=== PATIENT | male | born 1960 | race Caucasian/White ===

== ENCOUNTER 2024-10-07 18:37 | Inpatient (IN) | payer OTHER ==
[~2024-10-07] VITALS: Ht 188 cm; Wt 129.3 kg
[2024-10-07 18:50] VITALS: BP 123/71; PULSE 94; RESP 24; O2SAT 92
[2024-10-07] MEDS: NOREPINEPHRINE 8 MG/250ML KIT 250 ML IV SCH (18:50)
[2024-10-07] MEDS: EPINEPHrine HCL 250 ML IV SCH (18:50)
--- NOTE | 2024-10-07 18:59 | ED.PDOC ---
CPR-HPI HPI Comments 42-year-old male brought to ER via EMS in cardiac arrest. Transferred here from [facility], patient was at the store where he collapse as seen in the cameras. Cyanotic on scene with agonal respirations, CPR started by EMS, patient was asystole, and recieved 3 rounds of epinephrine, 1 round of bicarb, in 1 round of calcium. Blood sugar was high. Patient was stabilized at [facility], but was advised to be transferred to this institution for further evaluation and management. Chief Complaint: CPR Time Seen by MD: 18:56 Reviewed Notes: Cleaning Team Member Notes Allergies: Coded Allergies: UNOBTAINABLE (Unverified , 10/07/24) Information Source: Emergency Med Personnel Mode of Arrival: EMS Timing: Hours Onset: Witnessed Available Hx: Unknown Inital rhythm: Asystole Treatment: CPR, Intubation, IV, Epinephrine Response: Sustained return of pulse Associated signs and symptoms: Unknown Past Medical History PAST MEDICAL HISTORY: Unobtainable Surgical History: Unobtainable Family History Family History: Unobtainable Social History Smoker: Unobtainable Alcohol: Unobtainable Drugs: Unobtainable Lives In: Unobtainable Unable to Obtain due to: Medical Urgency, Intubated Physical Exam General Appearance: Other (Patient intubated) Was a procedure done? Was a procedure done?: No Differential Dx CPR Differential Diagnosis: Cardiopulmonary arrest, Electrolyte disorder, Myocardial Infarction, Respiratory Failure X-Ray, Labs, Meds, VS Vital Signs Date Time Temp Pulse Resp B/P (MAP) Pulse Ox O2 Delivery O2 Flow Rate FiO2 10/07/24 20:15 97 25 117/73 (88) 95 10/07/24 20:00 131/79 10/07/24 20:00 98 24 131/79 (96) 95 10/07/24 19:50 131/79 10/07/24 19:50 132/78 10/07/24 19:45 97 24 132/78 (96) 95 10/07/24 19:30 97 23 135/76 (95) 95 10/07/24 19:30 99 22 95 Mechanical Ventilator+ 100 100 10/07/24 19:25 96 10/07/24 19:15 96 24 134/78 (96) 95 10/07/24 19:00 98.5 91 25 135/76 (95) 93 98.5 10/07/24 18:54 98.5 96 16 135/76 (95) 95 98.5 10/07/24 18:50 94 24 123/71 (88) 92 100 10/07/24 18:50 94 24 123/71 (88) 92 100 10/07/24 18:50 123/71 10/07/24 18:50 123/71 10/07/24 18:41 86 16 120/73 (89) 96 10/07/24 18:40 85 Lab Test 10/07/24 20:08 10/07/24 19:30 10/07/24 19:11 10/07/24 18:58 Range/Units Troponin I High Sensitivity Pending 1159 *H </=54 ng/L Urine Color Light-yellow Yellow Urine Clarity Clear Clear Urine pH 5.0 5.0-9.0 Urine Specific [place] 1.027 1.001-1.035 Urine Protein Trace H Negative Urine Ketones Negative Negative Urine Blood 3+ H Negative /uL Urine Nitrite Negative Negative Urine Bilirubin Negative Negative Urine Urobilinogen Normal Negative mg/dL Urine Leukocyte Esterase Negative Negative /uL Urine RBC 2 0 - 3 /hpf Urine Microscopic WBC 1 0-3 /HPF Urine Squamous Epithelial Cells Few <5 /hpf Urine Bacteria Few H None Seen /hpf Urine Mucus Few None Seen Urine Glucose 4+ H Normal mg/dL Urine Opiates Screen Pending Urine Fentanyl Screen Pending Urine Barbiturates Screen Pending Urine Phencyclidine Screen Pending Urine Amphetamines Screen Pending Urine Benzodiazepines Screen Pending Urine Cocaine Screen Pending Urine Cannabinoids Screen Pending White Blood Count 18.8 H 4.4-10.8 10^3/uL Red Blood Count 5.91 H 4.5-5.90 10^6/uL Hemoglobin 16.8 13.5-17.5 g/dL Hematocrit 54.6 H 41.0-53.0 % Mean Corpuscular Volume 92.2 80.0-100.0 fL Mean Corpuscular Hemoglobin 28.4 28.0-32.0 pg Mean Corpuscular Hemoglobin Concent 30.8 L 32.0-36.0 g/dL Red Cell Distribution Width 17.7 H 11.8-14.3 % Platelet Count 301 140-450 10^3/uL Mean Platelet Volume 8.0 6.9-10.8 fL Neutrophils (%) (Auto) 85.8 H 37.0-80.0 % Lymphocytes (%) (Auto) 3.7 L 10.0-50.0 % Monocytes (%) (Auto) 9.6 0.0-12.0 % Eosinophils (%) (Auto) 0.4 0.0-7.0 % Basophils (%) (Auto) 0.5 0.0-2.0 % Neutrophils # (Auto) 16.1 H 1.6-8.6 10 ^3/uL Lymphocytes # (Auto) 0.7 0.4-5.4 10 ^3/uL Monocytes # (Auto) 1.8 H 0-1.3 10 ^3/uL Eosinophils # (Auto) 0.1 0-0.8 10 ^3/uL Basophils # (Auto) 0.1 0-0.2 10 ^3/uL Nucleated Red Blood Cells 1.6 % Sodium Level 140 136-145 mmol/L Potassium Level 5.3 H 3.5-5.1 mmol/L Chloride Level 97 L 98-107 mmol/L Carbon Dioxide Level 27 20-31 mmol/L Anion Gap 16 H 5-15 Blood Urea Nitrogen 60 H 9-23 mg/dL Creatinine 2.04 H 0.700-1.30 mg/dL Glomerular Filtration Rate Calc 37 >90 mL/min BUN/Creatinine Ratio 29.4 H 10.0-20.0 Serum Glucose 849 *H 74-106 mg/dL Lactic Acid Level 7.0 *H 0.4-2.0 mmol/L Calcium Level 11.5 H 8.7-10.4 mg/dL Phosphorus Level 8.7 H 2.4-5.1 mg/dL Magnesium Level 2.4 1.6-2.6 mg/dL Total Bilirubin 0.4 0.2-1.0 mg/dL Aspartate Amino Transferase (AST) 598 H 13-40 U/L Alanine Aminotransferase (ALT) 447 H 7-40 U/L Alkaline Phosphatase 233 H 46-116 U/L B-Type Natriuretic Peptide 454.29 0-100 pg/mL Total Protein 6.4 5.7-8.2 g/dL Albumin 3.8 3.2-4.8 g/dL Lipase Pending POC Glucose > 600 *H 70-106 mg/dl Current Medications Medications (Trade) Dose Ordered Sig/Chuck Route Start Time Stop Time Status Last Admin Vasopressin 20 units/Sodium Chloride 100 ml @ 9 mls/hr Q11H7M IV 10/07/24 19:00 10/07/24 20:00 Norepinephrine Bitartrate 250 ml @ 3.75 mls/hr Q24H IV 10/07/24 19:00 10/07/24 18:50 Epinephrine HCl 250 ml @ 7.5 mls/hr Q24H IV 10/07/24 19:45 10/07/24 18:50 Time of 1ST Reevaluation: 18:57 Reevaluation 1ST: Unchanged Patient Education/Counseling: Pt Unresponsive Family Education/Counseling: No Family Present Critical Care Note Critical Care Time?: Yes (45 min-critical care time only) Critical care comment: Status post cardiac arrest Heart Score Heart Score: Heart Score Response (Comments) Value History Moderate Suspicious 1 EKG Repolarization Disturb 1 Age 45-64 1 Risk Factors >3 or Hx ASHD 2 Troponin Normal limit 0 Total 5 Stability Stability form required: No I personally scribed for KP ROSAS MD ([email or web address]) on 10/07/24 at 18:58. Electronically submitted by James Miranda ([email or web address]). I personally scribed for KP ROSAS MD ([email or web address]) on 10/07/24 at 20:29. Electronically submitted by James Miranda ([email or web address]). KP ROSAS MD October 07, 2024 18:58
--- NOTE | 2024-10-07 19:06 | ECG ---
[facility] Test Date: 2024-10-07 Test Time: 18:40:24 Pat Name: ALEXX RAMIREZ Department: ED Room: [address] [place] [address] Gender: M Loom Operator: ALEX : 1960 Requested By: AVIVA DE LA VEGA Order Number: [id number] Reading MD: Natan Obrien Measurements Intervals [place] Rate: 85 P: 76 [place]: 190 QRS: -58 QRSD: 111 T: 115 QT: 410 QTc: 488 Interpretive Statements Sinus rhythm Incomplete RBBB and LAFB Low voltage, precordial leads Consider RVH w/ secondary repol abnormality Abnormal T, consider ischemia, lateral leads ST elevation, consider inferior injury Baseline wander in lead(s) III Electronically Signed On 10-08-2024 9:22:26 PDT by Natan Obrien Please click the below link to view image of tracing.
[2024-10-07 19:30] VITALS: PULSE 99; RESP 22; O2SAT 95
[2024-10-07 19:48] LABS: Basophils # (auto) 0.1 10 ^3/uL (0-0.2); Neutrophils # (auto) 16.1 10 ^3/uL (1.6-8.6); Platelet Count (auto) 301 10^3/uL (140-450)
[2024-10-07 19:50] LABS: Basophils % (auto) 0.5 % (0.0-2.0); Eosinophils # (auto) 0.1 10 ^3/uL (0-0.8); Eosinophils % (auto) 0.4 % (0.0-7.0); Hematocrit 54.6 % (41.0-53.0); Hemoglobin 16.8 g/dL (13.5-17.5); Lymphocytes # (auto) 0.7 10 ^3/uL (0.4-5.4); Lymphocytes % (auto) 3.7 % (10.0-50.0); Mean Corpuscular Hemoglobin 28.4 pg (28.0-32.0); Mean Corpuscular Hgb Conc. 30.8 g/dL (32.0-36.0); Mean Corpuscular Volume 92.2 fL (80.0-100.0); Monocytes # (auto) 1.8 10 ^3/uL (0-1.3); Monocytes % (auto) 9.6 % (0.0-12.0); Neutrophils % (auto) 85.8 % (37.0-80.0); Nucleated Red Blood Cells % 1.6 %; Red Blood Cells 5.91 10^6/uL (4.5-5.90); Red Cell Distribution Width 17.7 % (11.8-14.3); White Blood Cell 18.8 10^3/uL (4.4-10.8)
[2024-10-07] MEDS: VASOPRESSIN 20 UNITS in SODIUM CHL 0.9% 99 ML IV SCH (20:00)
[2024-10-07] MEDS: VASOPRESSIN 20 UNIT/ML ONE (20:01)
[2024-10-07 20:05] LABS: Albumin 3.8 g/dL (3.2-4.8); Anion Gap 16 (5-15); BUN/Creatinine Ratio 29.4 (10.0-20.0); Bilirubin, Total 0.4 mg/dL (0.2-1.0); Carbon Dioxide 27 mmol/L (20-31); Magnesium 2.4 mg/dL (1.6-2.6); Sodium 140 mmol/L (136-145); Total Protein 6.4 g/dL (5.7-8.2)
[2024-10-07 20:14] LABS: Chloride 97 mmol/L (98-107); Potassium 5.3 mmol/L (3.5-5.1)
[2024-10-07 20:15] LABS: Alanine Aminotransferase 447 U/L (7-40); Alkaline Phosphatase 233 U/L (46-116); Aspartate Aminotransferase 598 U/L (13-40); Blood Urea Nitrogen 60 mg/dL (9-23); Calcium 11.5 mg/dL (8.7-10.4); Phosphorus 8.7 mg/dL (2.4-5.1)
[2024-10-07 20:17] LABS: Glucose 849 mg/dL (74-106)
[2024-10-07 20:20] LABS: Urine Bacteria FEW /hpf (None Seen); Urine Blood 3+ /uL (Negative); Urine Clarity Clear (Clear); Urine Color Light-Yellow (Yellow); Urine Mucus FEW (None Seen); Urine Protein, UAD TRACE (Negative); Urine Specific Gravity 1.027 (1.001-1.035); Urine Squamous Epithelial Cell FEW /hpf (<5); Urine Urobilinogen Normal (Negative); Urine WBC 1 /HPF (0-3)
[2024-10-07 20:22] VITALS: BP 135/78; PULSE 95; RESP 24; O2SAT 95
[2024-10-07] MEDS: HEPARIN SODIUM (PORCINE) 5000 UNITS/ML 1ML VIAL IV ONE ×2 (20:30→21:24)
[2024-10-07] MEDS: SODIUM CHLORIDE 0.9% 1,000 ML IV ONE (20:34)
[2024-10-07 20:35] LABS: Lipase 38 U/L (12-53)
[2024-10-07 20:36] LABS: Amphetamine Screen, Urine Neg (NEGATIVE); Barbiturate Scree,Urine Neg (NEGATIVE); Benzodiazephine Screen, Urine Neg (NEGATIVE); Cannabinoid Screen, Urine Pos (NEGATIVE); Cocaine Screen, Urine Neg (NEGATIVE); Opiate Scree,Urine Neg (NEGATIVE); Phencyclidine Screen, Urine Neg (NEGATIVE)
--- NOTE | 2024-10-07 20:37 | ED.PDOC ---
CPR-HPI HPI Comments 42-year-old male brought to ER via EMS in cardiac arrest. Transferred here from [facility], patient was at the store where he collapse as seen in the cameras. Cyanotic on scene with agonal respirations, CPR started by EMS, patient was asystole, and recieved 3 rounds of epinephrine, 1 round of bicarb, in 1 round of calcium. Blood sugar was high. Patient was stabilized at [facility], but was advised to be transferred to this institution for further evaluation and management. Chief Complaint: CPR Time Seen by MD: 18:56 Reviewed Notes: Manager Business Banking Notes Allergies: Coded Allergies: UNOBTAINABLE (Unverified , 10/07/24) Information Source: Emergency Med Personnel Mode of Arrival: EMS Timing: Hours Inital rhythm: Asystole Treatment: CPR, Intubation, IV, Epinephrine Response: Sustained return of pulse Past Medical History PAST MEDICAL HISTORY: Unobtainable Surgical History: Unobtainable Family History Family History: Unobtainable Social History Smoker: Unobtainable Alcohol: Unobtainable Drugs: Unobtainable Lives In: Unobtainable Unable to Obtain due to: Medical Urgency, Intubated Physical Exam General Appearance: Severe Distress, Other (Patient intubated, status post cardiac arrest) HEENT: Normal ENT Inspection, Pharynx Normal, TMs Normal Neck: Full Range of Motion, Non-Tender, Normal, Normal Inspection Respiratory: Chest Non-Tender, Lungs Clear, No Accessory Muscle Use, No Respiratory Distress, Normal Breath Sounds Cardiovascular: No Edema, No JVD, No Murmur, No Gallop, Normal Peripheral Pulses, Regular Rate/Rhythm Breast Exam: Deferred Gastrointestinal: No Organomegaly, Non Tender, No Pulsatile Mass, Normal Bowel Sounds, Soft Genitalia: Deferred Pelvic: Deferred Rectal: Deferred Extremities: No calf tenderness, Normal capillary refill, Normal inspection, Normal range of motion, Non-tender, No pedal edema Musculoskeletal : Apperance: Normal Neurologic: Alert, aircraft general repair mechanic II-XII nml as Tested, No Motor Deficits, Normal Affect, Normal Mood, No Sensory Deficits Cerebellar Function: Normal Reflexes: Normal Skin: Dry, Normal Color, Warm Lymphatic: No Adenopathy Was a procedure done? Was a procedure done?: Yes Sedation Sedation?: No Central Line Recorder of insertion practice: Broom Stitcher Occupation of brazer resistance: Attending Physician Indication: Hypotension Room prepared for procedure: Yes Broom Stitcher performed hand hygien: Yes Maximal sterile barrier precau: Mask/Eye shield, Sterile gown, Cap, Sterlie gloves, Large sterlie drape Skin Preparation: Chlorhexidine gluconate Skin preparation completely dr: Yes Insertion site: Right, Femoral Central line catheter type: Xra-[id number] dialysis Number of lumens: 3 Central line exchanged over a: Yes Antiseptic ointment applied to: Yes Post Assessment: Proper placement Informed consent obtained: No Risks/benefits/alt described: No Other Procedure Procedure Right femoral arterial line insertion Indication Hypotension multiple vasopressors Anesthetic Lidocaine Prep Chlorhexadine Success Yes Informed consent obtained: No Risks, benefits, and alternati: No Differential Dx CPR Differential Diagnosis: Cardiopulmonary arrest, Electrolyte disorder, Myocardial Infarction, Respiratory Failure, Other (Diabetic ketoacidosis) X-Ray, Labs, Meds, VS Vital Signs Date Time Temp Pulse Resp B/P (MAP) Pulse Ox O2 Delivery O2 Flow Rate FiO2 10/08/24 01:00 101.1 95 24 138/81 (100) 93 101.1 10/08/24 01:00 138/81 10/08/24 00:58 138/77 10/08/24 00:50 137/78 10/08/24 00:45 100.9 93 24 137/78 (97) 92 100.9 10/08/24 00:33 101.1 10/08/24 00:30 100.8 92 24 132/74 (93) 92 100.8 10/08/24 00:23 100.6 89 24 131/73 94 90 100.6 10/08/24 00:16 89 24 131/73 (92) 94 90 10/08/24 00:15 100.6 89 24 131/73 (92) 94 100.6 10/08/24 00:00 100.6 90 24 128/73 (91) 94 100.6 10/08/24 00:00 127/81 10/07/24 23:50 129/79 10/07/24 23:50 129/79 10/07/24 23:45 100.6 91 19 127/74 (91) 94 100.6 10/07/24 23:33 100.4 10/07/24 23:30 100.6 90 25 127/74 (91) 98 100.6 10/07/24 23:15 100.4 90 24 121/70 (87) 98 100.4 10/07/24 23:11 89 24 126/64 (84) 98 90 10/07/24 23:00 137/72 10/07/24 23:00 100.2 88 24 126/64 (84) 99 100.2 10/07/24 22:50 131/72 10/07/24 22:50 131/72 10/07/24 22:45 100.2 88 24 131/72 (91) 99 100.2 10/07/24 22:30 87 24 129/77 (94) 98 10/07/24 22:28 129/77 10/07/24 22:15 89 24 123/74 (90) 98 10/07/24 22:00 90 24 126/77 (93) 98 10/07/24 22:00 126/77 10/07/24 21:50 127/76 10/07/24 21:50 127/76 10/07/24 21:45 92 24 127/76 (93) 96 10/07/24 21:38 98 24 124/77 (93) 95 100 10/07/24 21:35 95 24 135/78 (97) 95 100 10/07/24 21:30 92 24 130/72 (91) 97 10/07/24 21:29 93 10/07/24 21:28 117/74 10/07/24 21:15 96 21 117/74 (88) 96 10/07/24 21:01 98 24 124/77 (93) 95 100 10/07/24 21:00 99 25 124/77 (93) 95 10/07/24 21:00 124/77 10/07/24 20:50 143/77 10/07/24 20:50 143/77 10/07/24 20:45 94 26 143/77 (99) 96 10/07/24 20:30 95 24 135/78 (97) 95 10/07/24 20:22 95 24 135/78 (97) 95 100 10/07/24 20:15 97 25 117/73 (88) 95 10/07/24 20:00 131/79 10/07/24 20:00 98 24 131/79 (96) 95 10/07/24 19:50 131/79 10/07/24 19:50 132/78 10/07/24 19:45 97 24 132/78 (96) 95 10/07/24 19:30 97 23 135/76 (95) 95 10/07/24 19:30 99 22 95 Mechanical Ventilator+ 100 100 10/07/24 19:25 96 10/07/24 19:15 96 24 134/78 (96) 95 10/07/24 19:00 98.5 91 25 135/76 (95) 93 98.5 10/07/24 18:54 98.5 96 16 135/76 (95) 95 98.5 10/07/24 18:50 94 24 123/71 (88) 92 100 10/07/24 18:50 94 24 123/71 (88) 92 100 10/07/24 18:50 123/71 10/07/24 18:50 123/71 10/07/24 18:41 86 16 120/73 (89) 96 10/07/24 18:40 85 Lab Test 10/07/24 23:20 10/07/24 23:06 10/07/24 23:05 10/07/24 22:54 Range/Units White Blood Count 22.3 H 4.4-10.8 10^3/uL Red Blood Count 6.07 H 4.5-5.90 10^6/uL Hemoglobin 17.2 13.5-17.5 g/dL Hematocrit 54.2 H 41.0-53.0 % Mean Corpuscular Volume 89.4 80.0-100.0 fL Mean Corpuscular Hemoglobin 28.4 28.0-32.0 pg Mean Corpuscular Hemoglobin Concent 31.7 L 32.0-36.0 g/dL Red Cell Distribution Width 17.4 H 11.8-14.3 % Platelet Count 281 140-450 10^3/uL Mean Platelet Volume 7.8 6.9-10.8 fL Neutrophils (%) (Auto) 89.1 H 37.0-80.0 % Lymphocytes (%) (Auto) 3.1 L 10.0-50.0 % Monocytes (%) (Auto) 7.4 0.0-12.0 % Eosinophils (%) (Auto) 0.1 0.0-7.0 % Basophils (%) (Auto) 0.3 0.0-2.0 % Neutrophils # (Auto) 19.9 H 1.6-8.6 10 ^3/uL Lymphocytes # (Auto) 0.7 0.4-5.4 10 ^3/uL Monocytes # (Auto) 1.7 H 0-1.3 10 ^3/uL Eosinophils # (Auto) 0 0-0.8 10 ^3/uL Basophils # (Auto) 0.1 0-0.2 10 ^3/uL Nucleated Red Blood Cells 1.3 % Sodium Level 141 136-145 mmol/L Potassium Level 5.3 H 3.5-5.1 mmol/L Chloride Level 103 98-107 mmol/L Carbon Dioxide Level 29 20-31 mmol/L Anion Gap 9 5-15 Blood Urea Nitrogen 57 H 9-23 mg/dL Creatinine 1.67 H 0.700-1.30 mg/dL Glomerular Filtration Rate Calc 47 >90 mL/min BUN/Creatinine Ratio 34.1 H 10.0-20.0 Serum Glucose 735 #*H 74-106 mg/dL Serum Osmolality 360 H 278-298 mOsm/kg Lactic Acid Level 4.4 *H 0.4-2.0 mmol/L Calcium Level 10.8 H 8.7-10.4 mg/dL Phosphorus Level 6.0 H 2.4-5.1 mg/dL Magnesium Level 2.4 1.6-2.6 mg/dL Total Bilirubin 0.4 0.2-1.0 mg/dL Aspartate Amino Transferase (AST) 585 H 13-40 U/L Alanine Aminotransferase (ALT) 443 H 7-40 U/L Alkaline Phosphatase 188 H 46-116 U/L Total Protein 6.2 5.7-8.2 g/dL Albumin 3.7 3.2-4.8 g/dL Lipase 26 12-53 U/L Thyroid Stimulating Hormone (TSH) 0.80 0.55-4.78 uIU/mL POC Glucose > 600 *H > 600 *H 70-106 mg/dl Blood Gas Specimen Type Arterial Blood Gas Sample Site Right radial Blood Gas Patient Temperature 37.0 Arterial Blood Date Drawn [id number] Arterial Blood pH 7.302 L 7.350-7.450 Arterial Blood Partial Pressure CO2 54.5 H 35.0-48.0 mmHg Arterial Blood Partial Pressure O2 87.6 83.0-108.0 mmHg Arterial Blood HCO3 26.3 21.0-28.0 mmol/L Arterial Blood Oxygen Saturation 94.9 94.0-98.0 % Arterial Blood Base Excess -1.3 -2.0-3.0 mmol/L Arterial Blood Oxyhemoglobin 93.5 L 94.0-98.0 % Arterial Blood Carboxyhemoglobin 0.7 0.5-1.5 % Arterial Blood Methemoglobin 0.8 0.0-1.5 % Kp Test Modified Blood Gas Total Hemoglobin 17.40 13.5-17.5 g/dL Blood Gas Set Respiration Rate 24.0 Blood Gas Modality Vent - p/c FiO2 % 100.0 Blood Gas PEEP or CPAP 8.0 Blood Gas Comments Test 10/07/24 21:02 10/07/24 20:30 10/07/24 20:08 10/07/24 19:30 Range/Units Lactic Acid Level 5.0 *H 0.4-2.0 mmol/L Troponin I High Sensitivity 1714 *H 1569 *H </=54 ng/L Blood Gas Specimen Type Arterial Blood Gas Sample Site Right radial Blood Gas Patient Temperature 37.0 Arterial Blood Date Drawn Arterial Blood pH 7.183 *L 7.350-7.450 Arterial Blood Partial Pressure CO2 78.0 *H 35.0-48.0 mmHg Arterial Blood Partial Pressure O2 94.0 83.0-108.0 mmHg Arterial Blood HCO3 28.7 H 21.0-28.0 mmol/L Arterial Blood Oxygen Saturation 94.4 94.0-98.0 % Arterial Blood Base Excess -2.4 L -2.0-3.0 mmol/L Arterial Blood Oxyhemoglobin 92.5 L 94.0-98.0 % Arterial Blood Carboxyhemoglobin 1.2 0.5-1.5 % Arterial Blood Methemoglobin 0.8 0.0-1.5 % Kp Test Modified Blood Gas Total Hemoglobin 17.50 13.5-17.5 g/dL Blood Gas Set Respiration Rate 24.0 Blood Gas Modality Vent - p/c FiO2 % 100.0 Blood Gas PEEP or CPAP 8.0 Blood Gas Comments Blood Gas Critical Value Read Back Yes Blood Gas Notified Whom Laura dia md Blood Gas Notified Time [id number] Blood Gas Notified By Gennaro yanes rrt Urine Color Light-yellow Yellow Urine Clarity Clear Clear Urine pH 5.0 5.0-9.0 Urine Specific [place] 1.027 1.001-1.035 Urine Protein Trace H Negative Urine Ketones Negative Negative Urine Blood 3+ H Negative /uL Urine Nitrite Negative Negative Urine Bilirubin Negative Negative Urine Urobilinogen Normal Negative mg/dL Urine Leukocyte Esterase Negative Negative /uL Urine RBC 2 0 - 3 /hpf Urine Microscopic WBC 1 0-3 /HPF Urine Squamous Epithelial Cells Few <5 /hpf Urine Bacteria Few H None Seen /hpf Urine Mucus Few None Seen Urine Glucose 4+ H Normal mg/dL Urine Opiates Screen Neg NEGATIVE Urine Fentanyl Screen Neg NEGATIVE Urine Barbiturates Screen Neg NEGATIVE Urine Phencyclidine Screen Neg NEGATIVE Urine Amphetamines Screen Neg NEGATIVE Urine Benzodiazepines Screen Neg NEGATIVE Urine Cocaine Screen Neg NEGATIVE Urine Cannabinoids Screen Pos NEGATIVE Test 10/07/24 19:11 10/07/24 18:58 Range/Units White Blood Count 18.8 H 4.4-10.8 10^3/uL Red Blood Count 5.91 H 4.5-5.90 10^6/uL Hemoglobin 16.8 13.5-17.5 g/dL Hematocrit 54.6 H 41.0-53.0 % Mean Corpuscular Volume 92.2 80.0-100.0 fL Mean Corpuscular Hemoglobin 28.4 28.0-32.0 pg Mean Corpuscular Hemoglobin Concent 30.8 L 32.0-36.0 g/dL Red Cell Distribution Width 17.7 H 11.8-14.3 % Platelet Count 301 140-450 10^3/uL Mean Platelet Volume 8.0 6.9-10.8 fL Neutrophils (%) (Auto) 85.8 H 37.0-80.0 % Lymphocytes (%) (Auto) 3.7 L 10.0-50.0 % Monocytes (%) (Auto) 9.6 0.0-12.0 % Eosinophils (%) (Auto) 0.4 0.0-7.0 % Basophils (%) (Auto) 0.5 0.0-2.0 % Neutrophils # (Auto) 16.1 H 1.6-8.6 10 ^3/uL Lymphocytes # (Auto) 0.7 0.4-5.4 10 ^3/uL Monocytes # (Auto) 1.8 H 0-1.3 10 ^3/uL Eosinophils # (Auto) 0.1 0-0.8 10 ^3/uL Basophils # (Auto) 0.1 0-0.2 10 ^3/uL Nucleated Red Blood Cells 1.6 % Prothrombin Time 11.9 H 9.3-11.8 sec Prothrombin Time INR 1.14 0.9-1.15 Activated Partial Thromboplast Time 26.0 24.5-34.5 SEC Sodium Level 140 136-145 mmol/L Potassium Level 5.3 H 3.5-5.1 mmol/L Chloride Level 97 L 98-107 mmol/L Carbon Dioxide Level 27 20-31 mmol/L Anion Gap 16 H 5-15 Blood Urea Nitrogen 60 H 9-23 mg/dL Creatinine 2.04 H 0.700-1.30 mg/dL Glomerular Filtration Rate Calc 37 >90 mL/min BUN/Creatinine Ratio 29.4 H 10.0-20.0 Serum Glucose 849 *H 74-106 mg/dL Lactic Acid Level 7.0 *H 0.4-2.0 mmol/L Calcium Level 11.5 H 8.7-10.4 mg/dL Phosphorus Level 8.7 H 2.4-5.1 mg/dL Magnesium Level 2.4 1.6-2.6 mg/dL Total Bilirubin 0.4 0.2-1.0 mg/dL Aspartate Amino Transferase (AST) 598 H 13-40 U/L Alanine Aminotransferase (ALT) 447 H 7-40 U/L Alkaline Phosphatase 233 H 46-116 U/L Troponin I High Sensitivity 1159 *H </=54 ng/L B-Type Natriuretic Peptide 454.29 0-100 pg/mL Total Protein 6.4 5.7-8.2 g/dL Albumin 3.8 3.2-4.8 g/dL Lipase 38 12-53 U/L POC Glucose > 600 *H 70-106 mg/dl Current Medications Medications (Trade) Dose Ordered Sig/Chuck Route Start Time Stop Time Status Last Admin Vasopressin 20 units/Sodium Chloride 100 ml @ 9 mls/hr Q11H7M IV 10/07/24 19:00 10/07/24 20:00 Norepinephrine Bitartrate 250 ml @ 3.75 mls/hr Q24H IV 10/07/24 19:00 10/07/24 18:50 Epinephrine HCl 250 ml @ 7.5 mls/hr Q24H IV 10/07/24 19:45 10/07/24 18:50 Sodium Chloride 1,000 ml @ 1,000 mls/hr Q1H ONCE IV 10/07/24 20:30 10/07/24 21:29 DC 10/07/24 20:34 Insulin Human Regular (InsuLIN R) 10 units ONCE ONCE IV 10/07/24 20:30 10/07/24 20:32 DC 10/07/24 20:38 Heparin Sodium/ Dextrose 250 ml @ 10 mls/hr Q24H IV 10/07/24 20:30 10/07/24 21:20 Midazolam HCl 50 ml @ 1 mls/hr Q24H IV 10/07/24 21:00 10/07/24 21:28 Heparin Sodium (Porcine) 4,000 units ONCE ONCE IV 10/07/24 21:30 10/07/24 21:31 DC 10/07/24 21:24 Insulin Human (Reg)/Sodium Chloride 100 ml @ 0.5 mls/hr Q24H IV 10/07/24 23:00 10/08/24 01:09 Diagnostic Test (Pha) (Accu-Chek Comfort Curve T) 1 strip Q90MIN 10/08/24 00:00 10/08/24 01:00 Insulin Glargine (Lantus) 15 units ONCE ONCE SC 10/07/24 23:00 10/07/24 23:07 DC 10/07/24 23:19 Pantoprazole Sodium (Protonix) 40 mg ONCE ONCE IV 10/07/24 23:00 10/07/24 23:07 DC 10/07/24 23:22 Sodium Chloride 1,000 ml @ 150 mls/hr Q6H40M IV 10/07/24 23:00 10/08/24 01:53 Sodium Chloride 1,000 ml @ 1,000 mls/hr Q1H ONCE IV 10/07/24 23:00 10/07/24 23:59 DC 10/08/24 01:10 Aspirin 325 mg ONCE ONCE PO 10/07/24 23:00 10/07/24 23:07 DC 10/07/24 23:16 Acetaminophen (Tylenol Tablet) 650 mg ONCE ONCE PO 10/07/24 23:30 10/07/24 23:32 DC 10/07/24 23:33 Time of 1ST Reevaluation: 18:57 Reevaluation 1ST: Unchanged Patient Education/Counseling: Pt Unresponsive Family Education/Counseling: No Family Present Departure 1 Departure Time of Disposition: 02:16 (Patient presented as post [place] from outside hospital. Patient had a central line placed an arterial line placed. Patient had multiple pressors. We will admit patient for further workup.) Impression: Primary Impression: Cardiac arrest Additional Impressions: Acute respiratory failure Qualified Codes: J96.01 - Acute respiratory failure with hypoxia Uncontrolled diabetes mellitus Qualified Codes: E11.65 - Type 2 diabetes mellitus with hyperglycemia Disposition: ADMITTED INPATIENT Admit to: ICU Condition: Critical Critical Care Note Critical Care Time?: Yes (45 min-critical care time only) Critical care comment: Status post cardiac arrest Authorized and Performed by: Aviva Dia MD Total critical care time: Approximately 138 minutes Due to a high probability of clinically significant, life threatening deterioration, the patient required my highest level of preparedness to intervene emergently and I personally spent this critical care time directly and personally managing the patient. This critical care time included obtaining a history; examining the patient; pulse oximetry; ordering and review of studies; arranging urgent treatment with development of a management plan; evaluation of patient's response to treatment; frequent reassessment; and, discussions with other providers. This critical care time was performed to assess and manage the high probability of imminent, life-threatening deterioration that could result in multi-organ failure. It was exclusive of separately billable procedures and treating other patients and teaching time. Please see my other sections and the rest of the note for further information on patient assessment and treatment. Heart Score Heart Score: Heart Score Response (Comments) Value History Moderate Suspicious [address]-Deviation 2 Age 45-64 1 Risk Factors >3 or Hx ASHD 2 Troponin >3 x's Normal limit 2 Total 8 Stability Stability form required: No I personally scribed for AVIVA DIA MD ([email or web address]) on 10/07/24 at 20:37. Electronically submitted by James Miranda ([facility]). AVIVA DIA MD October 07, 2024 20:37
[2024-10-07] MEDS: InsuLIN REG 1unit/0.01ml Soln (100units/ml) IV ONE (20:38)
--- NOTE | 2024-10-07 20:48 | DVH ---
CHEST RADIOGRAPH Indication: s/p cardiac arrest Technique: Single frontal view of the chest was obtained Comparison: None FINDINGS: Lines and Tubes: Endotracheal tube in place 6.1 cm above the bhanu Lungs: Increased density throughout the right chest may represent infiltrate or atelectasis. Pleura: No effusion. No pneumothorax. Cardiomediastinal contours: Unremarkable Bones: No acute osseous abnormality. IMPRESSION: 1. Endotracheal tube 6.1 cm above the bhanu. 2. Enteric tube is believed to be in place but the distal aspect of this tube is not well seen. If o f clinical concern recommend abdominal study.
[2024-10-07 20:54] LABS: Base Excess -2.4 mmol/L (-2.0-3.0)
[2024-10-07 21:01] VITALS: BP 124/77; PULSE 98; RESP 24; O2SAT 95
[2024-10-07 21:09] LABS: INR 1.14 (0.9-1.15); Prothrombin Time 11.9 sec (9.3-11.8)
[2024-10-07] MEDS: HEPARIN DRIP/D5W 100UNITS/ML 250 ML IV SCH (21:20)
[2024-10-07] MEDS: MIDAZOLAM DRIP 50 mg/50mL 50 ML IV SCH (21:28)
[2024-10-07] MEDS ORDERED: DEXTROSE (50%) 50ML SYRG IV PRN (23:00)
--- NOTE | 2024-10-07 23:08 | DVHHPRES ---
History of Present Illness Resident Creating Document: LILLY CHIU RESIDENT History of Present Illness Hill Martinez is a proximally is 62-year-old male patient who was brought to the ER via EMS due to cardiac arrest, transferred from [facility] to [facility]. Due to clinical status, obtain information from EMR. Patient was at a store where he collapse is seen by the cannabis, he was cyanotic on scene and agonal respiration, CPR was started by EMS, patient connected to quality assurance monitor chassis which showed asystole, presented hyperglycemia (point of care glucose showed high values), received ACLS maneuvers (three rounds of epinephrine, one round of bicarbonate, one round of calcium). When patient arrived to ED he was already with ROSC. Could not obtain review of systems due to clinical status. Past medical history: Unobtainable Surgical history: Unobtainable Family history: Unobtainable Social history: Brought from [place]. Unknown living situation. Tobacco, alcohol and other drug abuse history unobtainable Allergies: Unobtainable Home medication: Unobtainable Patient seen and examined at bedside. Currently patient is on mechanical assisted ventilation, no sedation, on vasopressors. Place central venous and arterial line on right femoral area. Past Medical History Per HPI Past Surgical History Per HPI Family History Per HPI Past Social History Per HPI Review of Systems Review of Systems Per HPI Allergies: Coded Allergies: UNOBTAINABLE (Unverified , 10/07/24) Medications Current Medications Medications Dose Ordered Sig/Chuck Route Start Time Stop Time Status Last Admin Dose Admin Vasopressin 20 units/Sodium Chloride 100 ml @ 9 mls/hr Q11H7M IV 10/07/24 19:00 10/07/24 20:00 9 MLS/HR Norepinephrine Bitartrate 250 ml @ 3.75 mls/hr Q24H IV 10/07/24 19:00 10/07/24 18:50 26.25 MLS/HR Epinephrine HCl 250 ml @ 7.5 mls/hr Q24H IV 10/07/24 19:45 10/07/24 18:50 37.5 MLS/HR Heparin Sodium/ Dextrose 250 ml @ 10 mls/hr Q24H IV 10/07/24 20:30 10/07/24 21:20 10 MLS/HR Midazolam HCl 50 ml @ 1 mls/hr Q24H IV 10/07/24 21:00 10/07/24 21:28 1 MLS/HR Insulin Human (Reg)/Sodium Chloride 100 ml @ 0.5 mls/hr Q24H IV 10/07/24 23:00 Diagnostic Test (Pha) 1 strip Q90MIN 10/08/24 00:00 Dextrose 50 ml PRN PRN IV 10/07/24 23:00 Insulin Glargine 15 units DAILY SC 10/08/24 10:00 Pantoprazole Sodium 40 mg BID IV 10/08/24 10:00 Sodium Chloride 1,000 ml @ 150 mls/hr Q6H40M IV 10/07/24 23:00 Aspirin 81 mg DAILY PO 10/08/24 10:00 UNV Exam Vital Signs Vital Signs Date Time Temp Pulse Resp B/P (MAP) Pulse Ox O2 Delivery O2 Flow Rate FiO2 10/07/24 22:50 131/72 10/07/24 22:00 90 24 98 10/07/24 21:38 100 10/07/24 19:30 Mechanical Ventilator+ 10/07/24 19:00 98.5 98.5 Exam Patient lying in bed, under sedoanalgesia due to mechanical ventilation General: RASS -5, afebrile, mucosae are moist Cardiovascular: Normal S1 and S2. No murmurs, gallops or rubs Respiratory: Mechanically assisted ventilation, equal bilateral airway entree. Hyperventilation on right base, rest of lung auscultation is clear Abdomen: Soft, nontender, no organomegaly, normal bowel sounds MSK/skin: Mobilization of limbs cannot be evaluated. Skin is dry and warm Neurological: Orientation cannot be assessed. No apparent motor no sensitive deficits. Pupils are isocoric and reactive Labs/Xrays Labs Test 10/07/24 21:02 10/07/24 20:30 10/07/24 19:30 10/07/24 19:11 Range/Units Lactic Acid Level 5.0 *H 0.4-2.0 mmol/L Troponin I High Sensitivity 1714 *H </=54 ng/L Blood Gas Specimen Type Arterial Blood Gas Sample Site Right radial Blood Gas Patient Temperature 37.0 Arterial Blood Date Drawn [id number] Arterial Blood pH 7.183 *L 7.350-7.450 Arterial Blood Partial Pressure CO2 78.0 *H 35.0-48.0 mmHg Arterial Blood Partial Pressure O2 94.0 83.0-108.0 mmHg Arterial Blood HCO3 28.7 H 21.0-28.0 mmol/L Arterial Blood Oxygen Saturation 94.4 94.0-98.0 % Arterial Blood Base Excess -2.4 L -2.0-3.0 mmol/L Arterial Blood Oxyhemoglobin 92.5 L 94.0-98.0 % Arterial Blood Carboxyhemoglobin 1.2 0.5-1.5 % Arterial Blood Methemoglobin 0.8 0.0-1.5 % Kp Test Modified Blood Gas Total Hemoglobin 17.50 13.5-17.5 g/dL Blood Gas Set Respiration Rate 24.0 Blood Gas Modality Vent - p/c FiO2 % 100.0 Blood Gas PEEP or CPAP 8.0 Blood Gas Comments Blood Gas Critical Value Read Back Yes Blood Gas Notified Whom Laura dia md Blood Gas Notified Time [id number] Blood Gas Notified By Gennaro yanes rrt Urine Color Light-yellow Yellow Urine Clarity Clear Clear Urine pH 5.0 5.0-9.0 Urine Specific [place] 1.027 1.001-1.035 Urine Protein Trace H Negative Urine Ketones Negative Negative Urine Blood 3+ H Negative /uL Urine Nitrite Negative Negative Urine Bilirubin Negative Negative Urine Urobilinogen Normal Negative mg/dL Urine Leukocyte Esterase Negative Negative /uL Urine RBC 2 0 - 3 /hpf Urine Microscopic WBC 1 0-3 /HPF Urine Squamous Epithelial Cells Few <5 /hpf Urine Bacteria Few H None Seen /hpf Urine Mucus Few None Seen Urine Glucose 4+ H Normal mg/dL Urine Opiates Screen Neg NEGATIVE Urine Fentanyl Screen Neg NEGATIVE Urine Barbiturates Screen Neg NEGATIVE Urine Phencyclidine Screen Neg NEGATIVE Urine Amphetamines Screen Neg NEGATIVE Urine Benzodiazepines Screen Neg NEGATIVE Urine Cocaine Screen Neg NEGATIVE Urine Cannabinoids Screen Pos NEGATIVE White Blood Count 18.8 H 4.4-10.8 10^3/uL Red Blood Count 5.91 H 4.5-5.90 10^6/uL Hemoglobin 16.8 13.5-17.5 g/dL Hematocrit 54.6 H 41.0-53.0 % Mean Corpuscular Volume 92.2 80.0-100.0 fL Mean Corpuscular Hemoglobin 28.4 28.0-32.0 pg Mean Corpuscular Hemoglobin Concent 30.8 L 32.0-36.0 g/dL Red Cell Distribution Width 17.7 H 11.8-14.3 % Platelet Count 301 140-450 10^3/uL Mean Platelet Volume 8.0 6.9-10.8 fL Neutrophils (%) (Auto) 85.8 H 37.0-80.0 % Lymphocytes (%) (Auto) 3.7 L 10.0-50.0 % Monocytes (%) (Auto) 9.6 0.0-12.0 % Eosinophils (%) (Auto) 0.4 0.0-7.0 % Basophils (%) (Auto) 0.5 0.0-2.0 % Neutrophils # (Auto) 16.1 H 1.6-8.6 10 ^3/uL Lymphocytes # (Auto) 0.7 0.4-5.4 10 ^3/uL Monocytes # (Auto) 1.8 H 0-1.3 10 ^3/uL Eosinophils # (Auto) 0.1 0-0.8 10 ^3/uL Basophils # (Auto) 0.1 0-0.2 10 ^3/uL Nucleated Red Blood Cells 1.6 % Prothrombin Time 11.9 H 9.3-11.8 sec Prothrombin Time INR 1.14 0.9-1.15 Activated Partial Thromboplast Time 26.0 24.5-34.5 SEC Sodium Level 140 136-145 mmol/L Potassium Level 5.3 H 3.5-5.1 mmol/L Chloride Level 97 L 98-107 mmol/L Carbon Dioxide Level 27 20-31 mmol/L Anion Gap 16 H 5-15 Blood Urea Nitrogen 60 H 9-23 mg/dL Creatinine 2.04 H 0.700-1.30 mg/dL Glomerular Filtration Rate Calc 37 >90 mL/min BUN/Creatinine Ratio 29.4 H 10.0-20.0 Serum Glucose 849 *H 74-106 mg/dL Calcium Level 11.5 H 8.7-10.4 mg/dL Phosphorus Level 8.7 H 2.4-5.1 mg/dL Magnesium Level 2.4 1.6-2.6 mg/dL Total Bilirubin 0.4 0.2-1.0 mg/dL Aspartate Amino Transferase (AST) 598 H 13-40 U/L Alanine Aminotransferase (ALT) 447 H 7-40 U/L Alkaline Phosphatase 233 H 46-116 U/L B-Type Natriuretic Peptide 454.29 0-100 pg/mL Total Protein 6.4 5.7-8.2 g/dL Albumin 3.8 3.2-4.8 g/dL Lipase 38 12-53 U/L Test 10/07/24 18:58 Range/Units POC Glucose > 600 *H 70-106 mg/dl Assessment/Plan Assessment/Plan Assessment: Cardiopulmonary arrest status post ROSC Metabolic encephalopathy Acute respiratory failure Rule out anoxic brain injury Hyperglycemic hyperosmolar state Septic shock probably secondary to aspiration pneumonia NSTEMI type 1 versus type 2 KATHERINE hemodynamically mediated (VMN), unknown baseline Respiratory acidosis Shock liver Transaminitis Right pleural effusion Hyperkalemia Marijuana use Obese Plan: Indicated IV fluids, IV insulin, heparin drip and empiric IV antibiotics (Va ncomycin and Cefepime). On mechanical assisted ventilation (VT: 450 RR: 24 PEEP: 5, FIO2: 100%) Placed arterial, central venous line, exchange endotracheal tube. We will evaluate neurological status, consider cardiology consult for eventual coronary angiography. Ordered head CT and chest CT with IV contrast to rule out PE (patient has signs of right ventricular hypertrophy/strain on EKG) and acute aortic pathology Ordered cervical spine CT to rule out fractures. Goals of care could not be discussed with patient due to clinical status, considered as full code status. Discussed plan with Dr. Emerson, and nurses: Planning to evaluate causes of cardiac respiratory arrest (rule out acute coronary syndrome, PE, aortic pathology), probable of cardiac arrest could be hyperglycemic hyperosmolar state, currently on IV insulin drip, IV fluids, heparin drip. Patient has poor prognosis. Could not talk to family members, no contact information was given. Plan discussed with: Other (Nurses) My Orders Orders - LILLY CHIU RESIDENT Procedure Category Date Status Time Thyroid Stimulating LAB 10/07/24 Logged Hormone 22:55 Phosphorus LAB 10/07/24 Logged 22:55 Magnesium LAB 10/07/24 Logged 22:55 Lipase LAB 10/07/24 Logged 22:55 Lactic Acid W/ Reflex LAB 10/07/24 Logged Order 22:55 Comprehensive LAB 10/07/24 Logged Metabolic Panel 22:55 Complete Blood Count LAB 10/07/24 Logged 22:55 Osmolality, Serum LAB 10/07/24 Logged 22:55 Insulin Drip 100 PHA 10/07/24 In Process Unit/100ml (Myxredlin 23:00 Glucose Blood PHA 10/08/24 In Process (Accu-Chek Comfort 00:00 D/C All Diabetic JERRELL 10/07/24 In Process Medications 22:56 Insulin Drip Protocol JERRELL 10/07/24 In Process 22:56 Dextrose 50% Syringe PHA 10/07/24 In Process 23:00 Insulin Lantus PHA 10/07/24 In Process (Glargine) (Lantus) 23:00 Insulin Lantus PHA 10/08/24 In Process (Glargine) (Lantus) 10:00 Pantoprazole PHA 10/08/24 In Process (Protonix) 10:00 Pantoprazole PHA 10/07/24 In Process (Protonix) 23:00 Sodium Chloride 0.9% PHA 10/07/24 In Process 23:00 Sodium Chloride 0.9% PHA 10/07/24 In Process 23:00 Aspirin Tablet PHA 10/07/24 In Process 23:00 Aspirin Tablet PHA 10/08/24 Logged 10:00 Abg W/ Co-Ox RT 10/07/24 Logged 22:59 Chest Ultrasound US 10/07/24 Logged 23:02 Abg W/ Co-Ox RT 10/08/24 Transmitted 06:00 Date of Service: October 07, 2024 Billing Provider: OSWALDO EMERSON MD Common Visit Codes: [id number] INP/OBS CARE (HIGH) LILLY CHIU RESIDENT October 07, 2024 23:08
[2024-10-07 23:11] VITALS: BP 126/64; PULSE 89; RESP 24; O2SAT 98
[2024-10-07] MEDS: ASPirin 325 MG TAB PO ONE (23:16)
[2024-10-07 23:17] LABS: Base Excess -1.3 mmol/L (-2.0-3.0)
[2024-10-07] MEDS: INSULIN LANTUS (GLARGINE) 1 /0.01ml (100units/ml) SC ONE (23:19)
[2024-10-07] MEDS: PANTOPRAZOLE 40 MG/10 ML VIAL INJ IV ONE (23:22)
[2024-10-07] MEDS: ACETAMINOPHEN 325 MG TAB PO ONE (23:33)
[2024-10-07 23:45] LABS: Basophils # (auto) 0.1 10 ^3/uL (0-0.2); Basophils % (auto) 0.3 % (0.0-2.0); Eosinophils # (auto) 0 10 ^3/uL (0-0.8); Eosinophils % (auto) 0.1 % (0.0-7.0); Lymphocytes # (auto) 0.7 10 ^3/uL (0.4-5.4); Neutrophils # (auto) 19.9 10 ^3/uL (1.6-8.6)
[2024-10-07 23:46] LABS: Hematocrit 54.2 % (41.0-53.0); Hemoglobin 17.2 g/dL (13.5-17.5); Lymphocytes % (auto) 3.1 % (10.0-50.0); Mean Corpuscular Hemoglobin 28.4 pg (28.0-32.0); Mean Corpuscular Hgb Conc. 31.7 g/dL (32.0-36.0); Mean Corpuscular Volume 89.4 fL (80.0-100.0); Monocytes # (auto) 1.7 10 ^3/uL (0-1.3); Monocytes % (auto) 7.4 % (0.0-12.0); Neutrophils % (auto) 89.1 % (37.0-80.0); Nucleated Red Blood Cells % 1.3 %; Platelet Count (auto) 281 10^3/uL (140-450); Red Blood Cells 6.07 10^6/uL (4.5-5.90); Red Cell Distribution Width 17.4 % (11.8-14.3); White Blood Cell 22.3 10^3/uL (4.4-10.8)
[2024-10-07 23:52] LABS: Albumin 3.7 g/dL (3.2-4.8); Anion Gap 9 (5-15); BUN/Creatinine Ratio 34.1 (10.0-20.0); Bilirubin, Total 0.4 mg/dL (0.2-1.0); Carbon Dioxide 29 mmol/L (20-31); Chloride 103 mmol/L (98-107); Lipase 26 U/L (12-53); Magnesium 2.4 mg/dL (1.6-2.6); Sodium 141 mmol/L (136-145); Total Protein 6.2 g/dL (5.7-8.2)
[2024-10-07 23:58] LABS: Lactic Acid w/Reflex 4.4 mmol/L (0.4-2.0)
[2024-10-08] VITALS (103 sets, daily range): BP systolic 78–190; BP diastolic 52–112; PULSE 73–156; RESP 16–25; TEMP 96.3–101.1; O2SAT 87–98
[2024-10-08 00:01] LABS: Alkaline Phosphatase 188 U/L (46-116); Blood Urea Nitrogen 57 mg/dL (9-23); Potassium 5.3 mmol/L (3.5-5.1)
[2024-10-08 00:02] LABS: Alanine Aminotransferase 443 U/L (7-40); Aspartate Aminotransferase 585 U/L (13-40); Calcium 10.8 mg/dL (8.7-10.4)
[2024-10-08 00:03] LABS: Glucose 735 mg/dL (74-106)
[2024-10-08] MEDS: ACCU-CHEK COMFORT CURVE STRIP VI SCH ×3 (01:00→18:02)
[2024-10-08] MEDS: INSULIN DRIP 100 UNIT/100ML 100 ML IV SCH ×7 (01:09→22:00)
[2024-10-08] MEDS: SODIUM CHLORIDE 0.9% 1,000 ML IV ONE ×2 (01:10→06:01)
[2024-10-08] MEDS ORDERED: MORPHINE SULFATE INJ 2 MG/ml SYRG IV PRN (01:15)
[2024-10-08] MEDS ORDERED: ACETAMINOPHEN 325 MG TAB PO PRN (01:15)
[2024-10-08] MEDS: fentaNYL Drip 2500mCg/250mlNS 250 ML IV SCH (01:34)
[2024-10-08] MEDS: fentaNYL Drip 2500mCg/250mlNS 250 ML IV ONE (01:37)
[2024-10-08] MEDS: SODIUM CHLORIDE 0.9% 1,000 ML IV SCH (01:53)
--- NOTE | 2024-10-08 02:03 | DVH ---
Exam: US CHEST ULTRASOUND Clinical History: Right Pleural effusion Comparison: None Technique: Targeted sonographic evaluation of the right chest was performed utilizing grayscale and color Dopple r imaging. Findings/Impression: Small right-sided pleural effusion noted.
[2024-10-08] MEDS: IOHEXOL 350 MG/ML 100ML IJ ONE (02:55)
[2024-10-08] MEDS: ROCURONIUM 10MG/ML 10ML VIAL IV ONE ×2 (03:02→03:05)
--- NOTE | 2024-10-08 03:10 | DVH ---
EXAM: CT HEAD WITHOUT CONTRAST, CT CERVICAL WITHOUT CONTRAST INDICATION: s/p cardiac arrest TECHNIQUE: CT of the head and cervical spine without intravenous contrast. Radiation Dose Information: CT Dose: Dose-length product is 1644 mGy*cm The dose indicators for CT are the volume Computed Tomography (CT) Dose Index (CTDIvol) and the Dose Length Product (DLP), and are measured in units of mGy and mGy-cm, respectively. These indicators are not patient dose, but values generated from the CT scanner acquisition factors. The report includes radiation exposure data for exposures received during this examination. COMPARISON: None FINDINGS: There are patchy areas of what appears to be cerebral edema with more peripheral areas of hypoattenua tion more pronounced in the temporoparietal lobes. Edematous appearance of the cerebellum. Limited ev aluation of the skull base without discrete evidence of herniation. The ventricles appear appropriate in size and symmetry. No evidence of intracranial hemorrhage. No evidence of midline shift or mass e ffect. Air-fluid levels in the paranasal sinuses. Endotracheal tube and enteric tube are present. Cervical spine demonstrates no evidence of acute fracture or subluxation. Mild degenerative changes m ost pronounced at C5-C6. Visualized lung apices demonstrates complete opacification of the right hemithorax, incompletely imag ed IMPRESSION: 1. Patchy areas of cerebral edema, somewhat atypical in appearance, however favors global hypoxic inj ury versus diffuse anoxic injury. Follow-up with MRI would be of diagnostic benefit. 2. No acute cervical spine finding 3. Complete opacification of the right buffy thorax, incompletely imaged. Critical Result: Cerebral edema Findings discussed with , Kelli limon at 10/08/2024 05:59 AM, and acknowledged receipt and under standing of the findings. ..
--- NOTE | 2024-10-08 03:31 | DVH ---
INDICATION: Rule out PE or Aortic pathology TECHNIQUE: Multidetector CTA of the chest was performed of the chest with 100 cc of intravenous contr ast. PULMONARY ANGIOGRAPHY PROTOCOL was utilized using a bolus-tracking technique centered on the ivonne n pulmonary artery. Axial, coronal and sagittal multiplanar and MIP reformats were performed. Radiation Dose Information: CT Dose: Dose-length product is 2301.7 mGy*cm The dose indicators for CT are the volume Computed Tomography (CT) Dose Index (CTDIvol) and the Dose Length Product (DLP), and are measured in units of mGy and mGy-cm, respectively. These indicators are not patient dose, but values generated from the CT scanner acquisition factors. The report includes radiation exposure data for exposures received during this examination. Comparison: Chest x-ray same day Findings: Evaluation of the pulmonary arteries demonstrates no evidence of focal filling defect to suggest pulm onary embolus. 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 No sizable pericardial effusion. Mediastinal and hilar adenopathy with lymph nodes measuring up to 1.6 cm in short axis. The endotrac heal tube appears satisfactory in position. Enteric tube tip is noted within the stomach. There is complete opacification and hypo attenuation of the right lung with occlusion of the right ma instem bronchus. There is a small right pleural effusion. Basilar atelectasis of the left lung is pre sent. Visualized portions of the upper abdomen demonstrate 3.3 cm left renal mass. There is a 3.5 cm right adrenal mass and 3.8 cm left adrenal mass. IMPRESSION: 1. No evidence of pulmonary embolus. 2. Completely non aerated right lung with complete occlusion of the right mainstem bronchus potential ly on the basis of mass over mucous plug/aspiration 3. Marked mediastinal and hilar adenopathy. 4. Visualized portions of the upper abdomen demonstrate bilateral adrenal masses concerning for metas tatic disease. Consider dedicated CT imaging of the abdomen and pelvis with contrast. 5. Left renal mass from may represent cyst. 6. 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
[2024-10-08 03:52] LABS: INR 1.16 (0.9-1.15); Prothrombin Time 12.1 sec (9.3-11.8)
[2024-10-08 04:12] LABS: Basophils # (auto) 0.2 10 ^3/uL (0-0.2); Basophils % (auto) 0.7 % (0.0-2.0); Eosinophils # (auto) 0 10 ^3/uL (0-0.8); Hemoglobin 16.5 g/dL (13.5-17.5); Lymphocytes # (auto) 0.8 10 ^3/uL (0.4-5.4); Lymphocytes % (auto) 3.6 % (10.0-50.0); Mean Corpuscular Hemoglobin 27.9 pg (28.0-32.0); Mean Corpuscular Hgb Conc. 31.8 g/dL (32.0-36.0); Mean Corpuscular Volume 87.8 fL (80.0-100.0); Monocytes # (auto) 1.2 10 ^3/uL (0-1.3); Monocytes % (auto) 5.5 % (0.0-12.0); Neutrophils # (auto) 20.5 10 ^3/uL (1.6-8.6); Neutrophils % (auto) 90.2 % (37.0-80.0); Nucleated Red Blood Cells % 0.7 %; Platelet Count (auto) 291 10^3/uL (140-450); Red Blood Cells 5.92 10^6/uL (4.5-5.90); White Blood Cell 22.7 10^3/uL (4.4-10.8)
[2024-10-08] MEDS: HEPARIN SODIUM (PORCINE) 5000 UNITS/ML 1ML VIAL IV ONE ×2 (04:30→12:03)
[2024-10-08] MEDS: HEPARIN DRIP/D5W 100UNITS/ML 250 ML IV SCH ×3 (04:30→20:00)
[2024-10-08 04:39] LABS: Albumin 3.4 g/dL (3.2-4.8); Anion Gap 11 (5-15); BUN/Creatinine Ratio 34.6 (10.0-20.0); Bilirubin, Total 0.3 mg/dL (0.2-1.0); Calcium 10.4 mg/dL (8.7-10.4); Carbon Dioxide 30 mmol/L (20-31); Chloride 104 mmol/L (98-107); Magnesium 2.2 mg/dL (1.6-2.6); Sodium 145 mmol/L (136-145); Total Protein 5.8 g/dL (5.7-8.2)
[2024-10-08 04:41] LABS: Potassium 5.1 mmol/L (3.5-5.1)
[2024-10-08 04:42] LABS: Alanine Aminotransferase 402 U/L (7-40); Alkaline Phosphatase 166 U/L (46-116); Aspartate Aminotransferase 432 U/L (13-40); Blood Urea Nitrogen 56 mg/dL (9-23); Glucose 614 mg/dL (74-106); Phosphorus 5.5 mg/dL (2.4-5.1)
--- NOTE | 2024-10-08 04:56 | DVH ---
CHEST RADIOGRAPH Indication: ETT EXCHANGE VERIFY PLACEMENT Technique: Single frontal view of the chest was obtained COMPARISON: XY CHEST PORTABLE on DOS: 10/07/24 FINDINGS: Lines and Tubes: Endotracheal tube in satisfactory position. Enteric catheter in satisfactory positio n. Lungs: Multifocal airspace disease. Pleura: Moderate right pleural effusion. No pneumothorax. Cardiomediastinal contours: Cardiomegaly. Bones: Unremarkable IMPRESSION: Endotracheal tube in satisfactory position.
[2024-10-08] MEDS ORDERED: CEFEPIME 1GM/ 50ML 50 ML IV ONE (05:45)
[2024-10-08] MEDS ORDERED: VANCOMYCIN PER PHARMACY 0 MG IV SCH (05:45)
[2024-10-08] MEDS: VANCOMYCIN 1GM/200ML PM 200 ML IV SCH (06:02)
[2024-10-08 06:29] LABS: Base Excess 1.5 mmol/L (-2.0-3.0)
[2024-10-08 06:55] LABS: Anion Gap 9 (5-15); Calcium 9.9 mg/dL (8.7-10.4); Carbon Dioxide 26 mmol/L (20-31)
[2024-10-08 07:00] LABS: BUN/Creatinine Ratio 38.2 (10.0-20.0)
[2024-10-08 07:01] LABS: Blood Urea Nitrogen 47 mg/dL (9-23); Chloride 113 mmol/L (98-107); Glucose 326 mg/dL (74-106); Sodium 148 mmol/L (136-145)
[2024-10-08] MEDS: IPRATROPIUM BROM 0.5 MG/2.5ML INH SOL NEB SCH (07:01)
[2024-10-08] MEDS: LEVALBUTEROL HCL 1.25 MG/3 ML NEB NEB SCH (07:02)
[2024-10-08 07:08] LABS: Lactic Acid w/Reflex 3.4 mmol/L (0.4-2.0)
[2024-10-08] MEDS: PANTOPRAZOLE 40 MG/10 ML VIAL INJ IV SCH (08:08)
[2024-10-08] MEDS: methylPREDNISolone SOD SUCC 40 MG/ML VL IV SCH (08:08)
[2024-10-08] MEDS: ASPirin 81 mg TAB PO SCH (08:09)
[2024-10-08] MEDS: INSULIN LANTUS (GLARGINE) 1 /0.01ml (100units/ml) SC SCH (08:10)
[2024-10-08] MEDS: MEROPENEM 1GM IVPB 50 ML IV ONE (09:35)
--- NOTE | 2024-10-08 09:46 | DVHPNRES ---
Progress Note Date Seen: October 08, 2024 Resident Creating Document: REYNALDO DIAS RESIDENT Medical Necessity Reason Pt with a Central, PICC or Fol: Yes The following are medically ne: Central Line, West Catheter Subjective Review of Systems Roxana Cabrera is 63-year-old male patient who was brought to the ER via EMS due to cardiac arrest, transferred from [facility] to [facility]. Due to clinical status, obtain information from EMR. Patient was at a store where he collapse is seen by the cannabis, he was cyanotic on scene and agonal respiration, CPR was started by EMS, patient connected to emr implementation specialist which showed asystole, presented hyperglycemia (point of care glucose showed high values), received ACLS maneuvers (three rounds of epinephrine, one round of bicarbonate, one round of calcium). When patient arrived to ED he was already with ROSC. Could not obtain review of systems due to clinical status. Past medical history: Unobtainable Surgical history: Unobtainable Family history: Unobtainable Social history: Brought from [place]. Unknown living situation. Tobacco, alcohol and other drug abuse history unobtainable Allergies: Unobtainable Home medication: Unobtainable Review of systems Patient is sedated and on mechanical ventilation Objective vital signs Vital Sign Date Time Temp Pulse Resp B/P (MAP) Pulse Ox O2 Delivery O2 Flow Rate FiO2 10/08/24 09:15 97.5 94 24 119/75 (90) 88 207.5 110/78 (89) 10/08/24 08:26 100 10/08/24 08:00 Mechanical Ventilator+ Total Intake and Output 10/07/24 10/07/24 10/08/24 15:00 23:00 07:00 Intake Total 1248.00 ml 1993.85 ml Output Total 1600 ml 2000 ml Balance -352.00 ml -6.15 ml medications Current Medications Medications Dose Ordered Sig/Chuck Route Start Time Stop Time Status Last Admin Dose Admin Vasopressin 20 units/Sodium Chloride 100 ml @ 9 mls/hr Q11H7M IV 10/07/24 19:00 10/07/24 20:00 9 MLS/HR Norepinephrine Bitartrate 250 ml @ 3.75 mls/hr Q24H IV 10/07/24 19:00 10/08/24 08:10 48.75 MLS/HR Epinephrine HCl 250 ml @ 7.5 mls/hr Q24H IV 10/07/24 19:45 10/07/24 18:50 37.5 MLS/HR Midazolam HCl 50 ml @ 1 mls/hr Q24H IV 10/07/24 21:00 10/08/24 05:46 4 MLS/HR Diagnostic Test (Pha) 1 strip Q90MIN 10/08/24 00:00 10/08/24 09:10 1 STRIP Dextrose 50 ml PRN PRN IV 10/07/24 23:00 Insulin Glargine 15 units DAILY SC 10/08/24 10:00 10/08/24 08:10 15 UNITS Pantoprazole Sodium 40 mg BID IV 10/08/24 10:00 10/08/24 08:08 40 MG Sodium Chloride 1,000 ml @ 150 mls/hr Q6H40M IV 10/07/24 23:00 10/08/24 04:07 150 MLS/HR Aspirin 81 mg DAILY PO 10/08/24 10:00 10/08/24 08:09 81 MG Acetaminophen 650 mg Q6HP PRN PO 10/08/24 01:15 Morphine Sulfate 2 mg Q4HPRN PRN IV 10/08/24 01:15 Fentanyl Citrate 250 ml @ 2.5 mls/hr Q24H IV 10/08/24 01:28 10/08/24 01:34 7.5 MLS/HR Heparin Sodium/ Dextrose 250 ml @ 13 mls/hr [id number] IV 10/08/24 04:30 Vancomycin HCl 0 ml @ 0 mls/hr UD IV 10/08/24 05:45 Levalbuterol HCl 0.625 mg Q6HR NEB 10/08/24 06:00 10/08/24 07:02 0.625 MG Ipratropium [place] 0.5 mg Q6HWA NEB 10/08/24 06:00 10/08/24 07:01 0.5 MG Methylprednisolone Sodium Succinate 40 mg BID IV 10/08/24 10:00 10/08/24 08:08 40 MG Insulin Human (Reg)/Sodium Chloride 100 ml @ 2 mls/hr Q24H IV 10/08/24 06:00 10/08/24 07:34 26 MLS/HR Meropenem 50 ml @ 17 mls/hr Q8HR IV 10/08/24 14:00 Examination Patient lying in bed, under sedoanalgesia due to mechanical ventilation General: RASS -5, afebrile, mucosae are moist Cardiovascular: Normal S1 and S2. No murmurs, gallops or rubs Respiratory: Mechanically assisted ventilation, equal bilateral airway entree. Hyperventilation on right base, rest of lung auscultation is clear Abdomen: Soft, nontender, no organomegaly, normal bowel sounds MSK/skin: Mobilization of limbs cannot be evaluated. Skin is dry and warm Neurological: Orientation cannot be assessed. No apparent motor no sensitive deficits. Pupils are isocoric and reactive laboratory and microbiology Laboratory Tests 10/08/24 06:25 10/08/24 03:33 Test 10/08/24 06:25 Range/Units Serum Glucose 326 #H 74-106 mg/dL Microbiology Date/Time Source Procedure Growth Status 10/07/24 18:50 Sputum Gram Stain Pending Resulted 10/07/24 18:50 Sputum Respiratory Culture - Preliminary Resulted Problem List/Assessment/Plan Problem List/Assessment/Plan Neurology Acute metabolic encephalopathy Probable Anoxic brain injury with cerebral edema - on mechanical ventilation - dexamethasone 6 mg daily Respiratory Cardiopulmonary arrest status post ROSC Acute on chronic hypercarbic respiratory failure Respiratory acidosis Probable aspiration pneumonia with Right lung infiltrates with a mucus plugging status post bronchoscopy ? Right pleural effusion - on mechanical ventilation with a PEEP 12, FiO2 100% - bronchial washing sent for Gram staining and culture - on IV antibiotics vancomycin and meropenem Cardiovascular Cardiopulmonary arrest status post ROSC Septic shock likely due to pneumonia from aspiration NSTEMI likely type 1 ? Ischemic coronary artery disease Atrial fibrillation with a RVR, onset unknown - amiodarone for rhythm control - anticoagulation with a heparin drip with aspirin - vasopressors maintaining map more than 65 Infectious disease Septic shock likely due to aspiration pneumonia - vasopressors and IV antibiotics Gastroenterology Shock liver - improving Nephrology KATHERINE, improved Hyperosmolar hypovolemic Hypernatremia - on IV fluids Endocrinology Diabetes with uncontrolled hyperglycemia, insulin dependence not known ?Hyperosmolar hyperglycemic state - on insulin drip per ICU protocol Left femoral central line for hypothermia protocol placed on 10/08 Right femoral triple-lumen catheter placed on 10/08 West's catheter placed on 10/08 Goals of care discussed with the patient's nurse Kimberly. Code status currently full code No family found yet. Plan discussed with Dr. Salgado Plan discussed with: Other (RN ( Kimberly )) My Orders My Orders Orders - REYNALDO DIAS Procedure Category Date Status Time * Cardiology Consult CONS 10/08/24 Transmitted 08:16 REYNALDO DIAS RESIDENT October 08, 2024 09:46
[2024-10-08] MEDS ORDERED: CEFEPIME 1GM/ 50ML 50 ML IV SCH (10:00)
[2024-10-08] MEDS ORDERED: DEXTROSE (50%) 50ML SYRG IV PRN ×2 (10:00→17:15)
[2024-10-08 10:10] LABS: Base Excess 1.2 mmol/L (-2.0-3.0)
[2024-10-08 10:38] LABS: Potassium 4.2 mmol/L (3.5-5.1)
[2024-10-08 10:39] LABS: Anion Gap 8 (5-15); Carbon Dioxide 30 mmol/L (20-31)
[2024-10-08 10:40] LABS: Chloride 113 mmol/L (98-107); Sodium 151 mmol/L (136-145)
[2024-10-08 10:44] LABS: BUN/Creatinine Ratio 43.8 (10.0-20.0); Blood Urea Nitrogen 46 mg/dL (9-23); Glucose 97 mg/dL (74-106)
[2024-10-08 10:50] LABS: INR 1.19 (0.9-1.15); Prothrombin Time 12.4 sec (9.3-11.8)
--- NOTE | 2024-10-08 11:26 | DVHINCON2 ---
Date Seen: October 08, 2024 Referring Physician MD Kavin Reason for Consultation NSTEMI History of Present Illness This is a 63-year-old male transferred via EMS to our facility from [facility] for HLOC in the setting of cardiac arrest. At time of assessment, the patient was found chemically sedated, endotracheally intubated, and on multiple vasopressors for hemodynamic support. Information obtained from records which indicate the patient experienced a witnessed cardiac arrest at near the coolers in the back of a convenient store with the patient found to be cyanotic with agonal breathing with bystanders initiating CPR and calling 911. ACLS protocol continued upon EMS arrival including CPR for approximately 40 minutes (found in asystole and PEA), and administered a total of three rounds of epinephrine, one round of sodium bicarbonate, and one round of calcium chloride. Blood sugar read "HI." CPR continued to be in progress upon arrival to [facility] where he was subsequently endotracheally intubated and experienced another episode of cardiac arrest with successful ROSC after one round of CPR. Of note, records indicate there was emesis in airway prior to endotracheal intubation. At that time, he was placed on an epinephrine drip in addition to vasopressin and Levophed drips. He was also administered heparin bolus and initiated on a heparin drip for a "possible STEMI." There is unknown past or surgical medical history. Past Medical History Unable to obtain past medical history. Past Surgical History Unable to obtain past surgical history. Family History Unable to obtain family history. Social History Unable to obtain social history. Allergies: Coded Allergies: UNOBTAINABLE (Unverified , 10/07/24) Home Meds Unable to obtain home medications. Current Medications Current Medications Medications (Trade) Dose Ordered Sig/Chuck Route PRN Reason Start Time Stop Time Status Last Admin Vasopressin 20 units/Sodium Chloride 100 ml @ 9 mls/hr Q11H7M IV 10/07/24 19:00 10/07/24 20:00 Norepinephrine Bitartrate 250 ml @ 3.75 mls/hr Q24H IV 10/07/24 19:00 10/08/24 10:36 DC 10/08/24 08:10 Epinephrine HCl 250 ml @ 7.5 mls/hr Q24H IV 10/07/24 19:45 10/07/24 18:50 Heparin Sodium/ Dextrose 250 ml @ 10 mls/hr Q24H IV 10/07/24 20:30 10/08/24 04:16 DC 10/07/24 21:20 Midazolam HCl 50 ml @ 1 mls/hr Q24H IV 10/07/24 21:00 10/08/24 05:46 Insulin Human (Reg)/Sodium Chloride 100 ml @ 0.5 mls/hr Q24H IV 10/07/24 23:00 10/08/24 03:31 DC 10/08/24 01:09 Diagnostic Test (Pha) (Accu-Chek Comfort Curve T) 1 strip Q90MIN 10/08/24 00:00 10/08/24 09:59 DC 10/08/24 09:10 Dextrose 50 ml PRN PRN IV BG LESS Than 70 AND CALL MD 10/07/24 23:00 Insulin Glargine (Lantus) 15 units DAILY SC 10/08/24 10:00 10/08/24 08:10 Pantoprazole Sodium (Protonix) 40 mg BID IV 10/08/24 10:00 10/08/24 08:08 Sodium Chloride 1,000 ml @ 150 mls/hr Q6H40M IV 10/07/24 23:00 10/08/24 04:07 Aspirin 81 mg DAILY PO 10/08/24 10:00 10/08/24 08:09 Acetaminophen (Tylenol Tablet) 650 mg Q6HP PRN PO PAIN SCALE 1-3 OR TEMP>100.4 10/08/24 01:15 Morphine Sulfate 2 mg Q4HPRN PRN IV SEVERE PAIN (7-10 PAIN SCALE) 10/08/24 01:15 Fentanyl Citrate 250 ml @ 2.5 mls/hr Q24H IV 10/08/24 01:28 10/08/24 01:34 Insulin Human (Reg)/Sodium Chloride 100 ml @ 0.5 mls/hr Q24H IV 10/08/24 03:30 10/08/24 04:43 DC Heparin Sodium/ Dextrose 250 ml @ 13 mls/hr [id number] IV 10/08/24 04:30 Insulin Human (Reg)/Sodium Chloride 100 ml @ 1 mls/hr Q24H IV 10/08/24 04:45 10/08/24 05:54 DC Vancomycin HCl 0 ml @ 0 mls/hr UD IV 10/08/24 05:45 Cefepime HCl 50 ml @ 12.5 mls/hr Q12HR IV 10/08/24 10:00 10/08/24 08:01 DC Levalbuterol HCl (Xopenex Medneb) 0.625 mg Q6HR NEB 10/08/24 06:00 10/08/24 07:02 Ipratropium [place] [facility] 10/08/24 06:00 10/08/24 07:01 Methylprednisolone Sodium Succinate (Solu Medrol) 40 mg BID IV 10/08/24 10:00 10/08/24 08:08 Vancomycin HCl 200 ml @ 133.333 mls/hr Q2H IV 10/08/24 06:00 10/08/24 09:29 DC 10/08/24 08:08 Insulin Human (Reg)/Sodium Chloride 100 ml @ 2 mls/hr Q24H IV 10/08/24 06:00 10/08/24 09:59 DC 10/08/24 07:34 Meropenem 50 ml @ 17 mls/hr Q8HR IV 10/08/24 14:00 Vancomycin HCl 100 ml @ 100 mls/hr Q8H IV 10/08/24 13:00 Diagnostic Test (Pha) (Accu-Chek Comfort Curve T) 1 strip IQ4HR 10/08/24 12:00 Insulin Human Regular (InsuLIN R) IQ4HR SC 10/08/24 12:00 Dextrose 50 ml UD PRN IV Blood Sugar LESS THAN 60 10/08/24 10:00 Norepinephrine Bitartrate 32 mg/ Sodium Chloride 250 ml @ 0.938 mls/ hr Q24H IV 10/08/24 10:15 Review of Systems Constitutional: No symptom reported Ears, Nose, & Throat: No symptom reported Eyes: No symptom reported Neurological: No symptoms reported Pulmonary/Respiratory: No symptom reported Cardiovascular: Cardiac arrest Gastrointestinal: No symptom reported Genitourinary: No symptom reported Musculoskeletal: No symptom reported Skin: No symptom reported Psychiatric: No symptom reported Endocrine: No symptom reported Hemotologic/Lymphatic: No symptom reported Vital Signs Vital Signs Date Time Temp Pulse Resp B/P (MAP) Pulse Ox O2 Delivery O2 Flow Rate FiO2 10/08/24 10:45 96/65 10/08/24 10:21 89 24 88 100 10/08/24 10:00 Mechanical Ventilator+ 10/08/24 10:00 97.0 206.6 Physical Exam General Appearance: Chemically sedated. Endotracheally intubated. Withdrawn. Appears unkept Head Exam: Normal inspection Neck Exam: Normal inspection. Normal alignment Pulmonary/Respiratory: Diminished/coarse R>L bilateral breath sounds. Endotr acheally intubated Cardiovascular/Chest: Regular rate and rhythm. S1, S2. Sinus rhythm with diffuse T-wave inversion mostly to anteroseptal leads. Peripheral Pulses: 2+ Radial (R). 2+ Radial (L). 1+ Pedal (R). 1+ Pedal (L) Abdominal Exam: Normal bowel sounds. Soft. Nontender. No hepatospenomegaly. No masses Ankle Exam: Negative ankle edema Lower extremities: Negative lower extremity edema Neuro/Mental Status: Chemically sedated. Withdrawn. Pinpoint nonreactive pupils Thoughts/Psych: Unable to assess at this time Appearance: Withdrawn. Unkept Skin Exam: Lower extremities cool to touch Labs/Diagnostic Data Labs Test 10/08/24 10:19 10/08/24 09:52 10/08/24 09:13 10/08/24 06:25 Range/Units Prothrombin Time 12.4 H 9.3-11.8 sec Prothrombin Time INR 1.19 H 0.9-1.15 Activated Partial Thromboplast Time 33.0 24.5-34.5 SEC Sodium Level 151 H 136-145 mmol/L Potassium Level 4.2 3.5-5.1 mmol/L Chloride Level 113 H 98-107 mmol/L Carbon Dioxide Level 30 20-31 mmol/L Anion Gap 8 5-15 Blood Urea Nitrogen 46 H 9-23 mg/dL Creatinine 1.05 0.700-1.30 mg/dL Glomerular Filtration Rate Calc 81 >90 mL/min BUN/Creatinine Ratio 43.8 H 10.0-20.0 Serum Glucose 97 # 74-106 mg/dL Calcium Level 10.0 8.7-10.4 mg/dL Blood Gas Specimen Type Arterial Blood Gas Sample Site Arterial line Blood Gas Patient Temperature 37.0 Arterial Blood Date Drawn [id number] Arterial Blood pH 7.313 L 7.350-7.450 Arterial Blood Partial Pressure CO2 59.0 H 35.0-48.0 mmHg Arterial Blood Partial Pressure O2 70.2 L 83.0-108.0 mmHg Arterial Blood HCO3 29.2 H 21.0-28.0 mmol/L Arterial Blood Oxygen Saturation 90.9 L 94.0-98.0 % Arterial Blood Base Excess 1.2 -2.0-3.0 mmol/L Arterial Blood Oxyhemoglobin 90.2 L 94.0-98.0 % Arterial Blood Carboxyhemoglobin 0.3 L 0.5-1.5 % Arterial Blood Methemoglobin 0.5 0.0-1.5 % Kp Test N/a Blood Gas Total Hemoglobin 17.60 H 13.5-17.5 g/dL Blood Gas Set Respiration Rate 24.0 Blood Gas Modality Vent - p/c FiO2 % 100.0 Blood Gas Inspiratory Pressure 26.0 Blood Gas PEEP or CPAP 12.0 POC Glucose 166 H 70-106 mg/dl Serum Osmolality 340 H 278-298 mOsm/kg Lactic Acid Level 3.4 *H 0.4-2.0 mmol/L Test 10/08/24 05:58 10/08/24 03:33 10/08/24 03:00 10/07/24 23:20 Range/Units Blood Gas Critical Value Read Back yes Blood Gas Notified Whom marcus Meraz md Blood Gas Notified Time [id number] Blood Gas Notified By White Blood Count 22.7 H 4.4-10.8 10^3/uL Red Blood Count 5.92 H 4.5-5.90 10^6/uL Hemoglobin 16.5 13.5-17.5 g/dL Hematocrit 52.0 41.0-53.0 % Mean Corpuscular Volume 87.8 80.0-100.0 fL Mean Corpuscular Hemoglobin 27.9 L 28.0-32.0 pg Mean Corpuscular Hemoglobin Concent 31.8 L 32.0-36.0 g/dL Red Cell Distribution Width 16.0 H 11.8-14.3 % Platelet Count 291 140-450 10^3/uL Mean Platelet Volume 7.8 6.9-10.8 fL Neutrophils (%) (Auto) 90.2 H 37.0-80.0 % Lymphocytes (%) (Auto) 3.6 L 10.0-50.0 % Monocytes (%) (Auto) 5.5 0.0-12.0 % Eosinophils (%) (Auto) 0.0 0.0-7.0 % Basophils (%) (Auto) 0.7 0.0-2.0 % Neutrophils # (Auto) 20.5 H 1.6-8.6 10 ^3/uL Lymphocytes # (Auto) 0.8 0.4-5.4 10 ^3/uL Monocytes # (Auto) 1.2 0-1.3 10 ^3/uL Eosinophils # (Auto) 0 0-0.8 10 ^3/uL Basophils # (Auto) 0.2 0-0.2 10 ^3/uL Nucleated Red Blood Cells 0.7 % Phosphorus Level 5.5 H 2.4-5.1 mg/dL Magnesium Level 2.2 1.6-2.6 mg/dL Total Bilirubin 0.3 0.2-1.0 mg/dL Aspartate Amino Transferase (AST) 432 H 13-40 U/L Alanine Aminotransferase (ALT) 402 H 7-40 U/L Alkaline Phosphatase 166 H 46-116 U/L Total Protein 5.8 5.7-8.2 g/dL Albumin 3.4 3.2-4.8 g/dL Lipase 26 12-53 U/L Thyroid Stimulating Hormone (TSH) 0.80 0.55-4.78 uIU/mL Test 10/07/24 22:54 10/07/24 21:02 10/07/24 19:30 10/07/24 19:11 Range/Units Blood Gas Comments Troponin I High Sensitivity 1714 *H </=54 ng/L Urine Color Light-yellow Yellow Urine Clarity Clear Clear Urine pH 5.0 5.0-9.0 Urine Specific [place] 1.027 1.001-1.035 Urine Protein Trace H Negative Urine Ketones Negative Negative Urine Blood 3+ H Negative /uL Urine Nitrite Negative Negative Urine Bilirubin Negative Negative Urine Urobilinogen Normal Negative mg/dL Urine Leukocyte Esterase Negative Negative /uL Urine RBC 2 0 - 3 /hpf Urine Microscopic WBC 1 0-3 /HPF Urine Squamous Epithelial Cells Few <5 /hpf Urine Bacteria Few H None Seen /hpf Urine Mucus Few None Seen Urine Glucose 4+ H Normal mg/dL Urine Opiates Screen Neg NEGATIVE Urine Fentanyl Screen Neg NEGATIVE Urine Barbiturates Screen Neg NEGATIVE Urine Phencyclidine Screen Neg NEGATIVE Urine Amphetamines Screen Neg NEGATIVE Urine Benzodiazepines Screen Neg NEGATIVE Urine Cocaine Screen Neg NEGATIVE Urine Cannabinoids Screen Pos NEGATIVE B-Type Natriuretic Peptide 454.29 0-100 pg/mL Microbiology Date/Time Source Procedure Growth Status 10/07/24 18:50 Sputum Gram Stain Pending Resulted 10/07/24 18:50 Sputum Respiratory Culture - Preliminary Resulted Assessment Non ST-elevation myocardial infarction Cardiopulmonary arrest with ROSC Highly suspected ischemic coronary artery disease Highly suspected anoxic brain injury Acute hypoxic respiratory failure with aspiration pneumonia Uncontrolled diabetes mellitus, Hgb A1C 13.4% Acute kidney injury Elevated LFTs Cannabinoid use Obesity Plan/Recommendation (Dr. Clayton) Highly suspected from an ischemic coronary event. Given likelihood of anoxic brain injury, we will hold off from invasive cardiac procedures at this time. In the meantime, continue heparin drip per pharmacy protocol as well as single- antiplatelet therapy. Continue vasopressors for hemodynamic support. Continue pulmonology and neurological recommendations. Monitor ECG changes and notify. Considers goals of care. Thank you for allowing us to participate in this patient's care. Please call if you have any questions or concerns. Critical care time: 50 minutes. This medical document was created using an electronic medical record system with voice recognition software and computerized dictation system. Although this document has been carefully reviewed, there might still be some phonetic and typographical errors. Occasional wrong-word or ``sound-alike substitutions may have occurred due to the inherent limitations of voice recognition software. These areas are purely typographical due to imperfections of the software programs and do not reflect any compromise in the patient's medical care. Please read the chart carefully and recognize, using context, where these substitutions have occurred. Plan discussed with: Other NYHA Physical activity limitations: NA Date of Service: October 08, 2024 Billing Provider: ALONDRA EDWARD Cardiology Common Codes: 96707-[id number] CARE 30-74 MIN ALONDRA EDWARD October 08, 2024 11:26
[2024-10-08 11:52] LABS: Triglycerides 93 mg/dL (< 150)
[2024-10-08 11:53] LABS: LDL Cholesterol 45 mg/dL (< 100)
[2024-10-08 11:54] LABS: Cholesterol 126 mg/dL (< 200); HDL Cholesterol 58 mg/dL (40-59)
[2024-10-08] MEDS: InsuLIN REG 1unit/0.01ml Soln (100units/ml) SC SCH (12:04)
--- NOTE | 2024-10-08 12:19 | DVH ---
CHEST RADIOGRAPH Indication: s/p bronchoscopy Technique: Single frontal view of the chest was obtained Comparison: XY CHEST PORTABLE on DOS: 10/08/24, XY CHEST PORTABLE on DOS: 10/07/24 FINDINGS: Lines and Tubes: The endotracheal tube terminates 3.2 cm above the bhanu. Lungs: Hazy right upper and lower lobe opacification. Pleura: Right pleural effusion. No pneumothorax. Cardiomediastinal contours: Unremarkable Bones: No acute osseous abnormality. IMPRESSION: 1. Right pleural effusion and consolidation.
--- NOTE | 2024-10-08 12:39 | DVHSR ---
APPROVED REPORT EXAM: LIMITED Two-dimensional and M-mode echocardiogram with Doppler and color Doppler. Blood Pressure: 100/58 mmHg INDICATION post cpr RISK FACTORS Obesity: Height: 6'2, Weight: 285 DIMENSIONS LVDd4.1 (3.8-5.7cm)LA (2D) (1.9-4.0cm)Aortic Root3.9 (2.0-3.7cm) LVDs3.0 (2.5-4.0cm)LA (MM) (1.9-4.0cm)Aortic Cusp Exc2.3 (1.5-2.0cm) EF (%) 50.0 (55-70%)Rt. Atrium4.0 (1.9-4.0cm)Asc. Aorta4.0 cm IVSd1.0 (0.7-1.1cm)RV (D)3.8 (1.8-2.4cm) PWd1.1 (0.7-1.1cm) Mitral Valve MitralMitral Stenosis E/A ratio0.02D MVAcm2 Aortic Valve Aortic ValveAortic Stenosis V10.87m/Orion Mean GR.mmHg V20.94m/Orion Peak GR.4mmHg LVOT Diameter2.3 (1.8-2.4cm)Doppler AVA3.84cm2 Pulmonic Valve V20.80m/s Tricuspid Valve TR Velocity2.07m/s [id number] Other Information Quality : Technically LimitedRhythm : Technically limited study due to on vent. pt laying on right side. S/P CPR Conclusion Technically good study. Sinus rhythm. Concentric LVH with aortic root enlargement. RV and right atrial enlargement. Valves. He is structurally normal. Left ventricular function is preserved. EF is approximately 50% with normal RV function. Dopplers unremarkable. No pericardial effusion masses or vegetations.
--- NOTE | 2024-10-08 13:25 | CONS ---
Pharmacy Clinical Information: HEPARIN PER PHARMACY SPOKE TO PAWAN Lopez REGARDING heparin dose change Current dose: 1300 units/hr CURRENT aPTT: 33 on 10/08/24 at 10:19 BOLUS: yes, 5000 units heparin ivp bolus Increase (new dose): 1600 units/hr Date and time new dose started: 12:04 ON 10/08/2024 Next aPTT: 10/08/2024 AT 18:00 PAWAN Harris READ BACK NEW DOSE: 1300 UNITS/HR LINO Hernadez October 08, 2024 13:25
[2024-10-08] MEDS: AMIODARONE BOLUS KIT 100 ML IV ONE (13:52)
[2024-10-08] MEDS: AMIODARONE 360mg/200mL PREMIX 200 ML IV ONE (14:02)
[2024-10-08] MEDS: MEROPENEM 1GM IVPB 50 ML IV SCH (14:06)
--- NOTE | 2024-10-08 14:19 | ECG ---
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
--- NOTE | 2024-10-08 14:20 | ECG ---
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
[2024-10-08] MEDS: NOREPINEPHRINE BITARTRATE 32 MG in SODIUM CHL 0.9% 218 ML IV SCH (14:31)
[2024-10-08] MEDS: VANCOMYCIN 750MG KIT 100 ML IV SCH (14:51)
--- NOTE | 2024-10-08 15:13 | DVHNC2 ---
Procedure - Procedure- Emergent bronchoscopy Indication- Aspiration Procedure in detail Intubated and sedated in the ICU s/p cardiac arrest. Patient was found to desaturate to 87% on 100% FiO2, raising the concern for aspiration. 2 physician consent was obtained and emergent bronchoscopy was performed at the bedside. Flexible bronchoscope was used and passed through the endotracheal tube, tracheobronchial tree was examined. Mucosa of the right airways appeared abnormal and infiltrated by possible tumor, biopsy was deferred due to instability therefore bronchial washings were obtained. Secretions from the right airway were then loosened up with approximately 50 cc of normal saline and thoroughly suctioned into a separate specimen container. Left airways appeared normal and patent, no discreet endobronchial lesions. After the procedure, the scope was removed and sample sent. NELL PEREIRA MD October 08, 2024 15:13
[2024-10-08 16:32] LABS: Anion Gap 16 (5-15); Carbon Dioxide 22 mmol/L (20-31); Chloride 110 mmol/L (98-107); Sodium 148 mmol/L (136-145)
[2024-10-08 16:33] LABS: Calcium 8.9 mg/dL (8.7-10.4)
[2024-10-08 16:37] LABS: BUN/Creatinine Ratio 50.5 (10.0-20.0)
[2024-10-08 16:40] LABS: Blood Urea Nitrogen 51 mg/dL (9-23); Glucose 317 mg/dL (74-106)
[2024-10-08] MEDS: INSULIN LANTUS (GLARGINE) 1 /0.01ml (100units/ml) SC ONE (17:44)
[2024-10-08 18:25] LABS: Potassium 4.3 mmol/L (3.5-5.1)
[2024-10-08 18:26] LABS: Anion Gap 18 (5-15); Calcium 9.5 mg/dL (8.7-10.4)
[2024-10-08 18:27] LABS: Carbon Dioxide 19 mmol/L (20-31); Chloride 109 mmol/L (98-107); Sodium 146 mmol/L (136-145)
[2024-10-08 18:31] LABS: BUN/Creatinine Ratio 44.1 (10.0-20.0); Blood Urea Nitrogen 49 mg/dL (9-23); Glucose 349 mg/dL (74-106)
[2024-10-08 18:45] LABS: INR 1.35 (0.9-1.15); Prothrombin Time 13.9 sec (9.3-11.8)
[2024-10-08 18:48] LABS: Partial Thromboplastin Time > 139.0 SEC (24.5-34.5)
--- NOTE | 2024-10-08 19:57 | DVHINCON2 ---
Date of service: October 08, 2024 Referring Physician Von Reason for Consultation Suspect anoxic brain injury History of Present Illness Mr. Cabrera is a 63 years old gentleman he was transferred from the [facility] with a chief complaint of cardiopulmonary arrest. At this ti ma, he was intubated, not on sedation, nonresponsive to strong painful stimuli. No family available for history. The information is obtained from the chart review and talking to his nurse Apparently, the patient was collapsed in the store, he was cyanotic on scene with agonal respiration, EMS started CPR and he progressed to asystole and then was intubated and resuscitated AFib noticed in the hospital She has been off sedation since 10/09/23 1400 , no answer Urinalysis, 10/07/2024: Unremarkable UDS, 10/07/2024: Cannabinoids ABG, 10/07/2024: Respiratory acidosis, 10/08/2024: Respiratory acidosis WBC/HB/PLT/MCV, 10/08/2024: 22.7/16.5/291/87.8 PT/INR/PTT, 10/08/2024: 13.9/1.35/139 BUN/CR, 10/08/2024: 49/1.11 TBI/AST/ALT/AP, 10/08/2024: 043/432/402/166 Glucose, 10/07/2024: > 600, > 600, > 600, 10/08/2024: > 600, 482 HGB A1c, 10/08/2024: 13.4 Lactic acid, 10/08/2019 5:7, 5, 4.4, 10/08/2024: 3.6 TG/HDL/LDL/HDL, 10/08/2024: 93/126/45/58 TSH, 10/07/2024: 0.8 Echocardiogram, : Technically good study. Sinus rhythm. Concentric LVH with aortic root enlargement. RV and right atrial enlargement. Valves. He is structurally normal. Left ventricular function is preserved. EF is approximately 50% with normal RV function. Dopplers unremarkable. No pericardial effusion masses or vegetations. Chest x-ray, 10/07/2024: 1. Endotracheal tube 6.1 cm above the bhanu. 2. Enteric tube is believed to be in place but the distal aspect of this tube is not well seen. If of clinical concern recommend abdominal study CT head, 10/07/2024: 1. Patchy areas of cerebral edema, somewhat atypical in appearance, however favors global hypoxic injury versus diffuse anoxic injury. Follow-up with MRI would be of diagnostic benefit. 2. No acute cervical spine finding 3. Complete opacification of the right buffy thorax, incompletely imaged Past Medical History Unobtainable Past Surgical History Unobtainable Family History Unobtainable Social History Unobtainable Allergies: Coded Allergies: UNOBTAINABLE (Unverified , 10/07/24) Current Medications Current Medications Medications (Trade) Dose Ordered Sig/Chuck Route PRN Reason Start Time Stop Time Status Last Admin Heparin Sodium/ Dextrose 250 ml @ 10 mls/hr Q24H IV 10/07/24 20:30 10/08/24 04:16 DC 10/07/24 21:20 Midazolam HCl 50 ml @ 1 mls/hr Q24H IV 10/07/24 21:00 10/08/24 05:46 Insulin Human (Reg)/Sodium Chloride 100 ml @ 0.5 mls/hr Q24H IV 10/07/24 23:00 10/08/24 03:31 DC 10/08/24 01:09 Diagnostic Test (Pha) (Accu-Chek Comfort Curve T) 1 strip Q90MIN 10/08/24 00:00 10/08/24 09:59 DC 10/08/24 09:10 Dextrose 50 ml PRN PRN IV BG LESS Than 70 AND CALL 10/07/24 23:00 10/08/24 17:31 DC Insulin Glargine (Lantus) 15 units DAILY SC 10/08/24 10:00 10/08/24 17:31 DC 10/08/24 08:10 Pantoprazole Sodium (Protonix) 40 mg BID IV 10/08/24 10:00 10/08/24 08:08 Sodium Chloride 1,000 ml @ 150 mls/hr Q6H40M IV 10/07/24 23:00 10/08/24 04:07 Aspirin 81 mg DAILY PO 10/08/24 10:00 10/08/24 08:09 Acetaminophen (Tylenol Tablet) 650 mg Q6HP PRN PO PAIN SCALE 1-3 OR TEMP>100.4 10/08/24 01:15 Morphine Sulfate 2 mg Q4HPRN PRN IV SEVERE PAIN (7-10 PAIN SCALE) 10/08/24 01:15 Fentanyl Citrate 250 ml @ 2.5 mls/hr Q24H IV 10/08/24 01:28 10/08/24 01:34 Insulin Human (Reg)/Sodium Chloride 100 ml @ 0.5 mls/hr Q24H IV 10/08/24 03:30 10/08/24 04:43 DC Heparin Sodium/ Dextrose 250 ml @ 13 mls/hr [id number] IV 10/08/24 04:30 10/08/24 11:51 DC Insulin Human (Reg)/Sodium Chloride 100 ml @ 1 mls/hr Q24H IV 10/08/24 04:45 10/08/24 05:54 DC Vancomycin HCl 0 ml @ 0 mls/hr UD IV 10/08/24 05:45 Cefepime HCl 50 ml @ 12.5 mls/hr Q12HR IV 10/08/24 10:00 10/08/24 08:01 DC Levalbuterol HCl (Xopenex Medneb) 0.625 mg Q6HR NEB 10/08/24 06:00 10/08/24 17:52 Ipratropium [place] (Atrovent Medneb) 0.5 mg Q6HWA NEB 10/08/24 06:00 10/08/24 17:52 Methylprednisolone Sodium Succinate (Solu Medrol) 40 mg BID IV 10/08/24 10:00 10/08/24 16:59 DC 10/08/24 08:08 Vancomycin HCl 200 ml @ 133.333 mls/hr Q2H IV 10/08/24 06:00 10/08/24 09:29 DC 10/08/24 08:08 Insulin Human (Reg)/Sodium Chloride 100 ml @ 2 mls/hr Q24H IV 10/08/24 06:00 10/08/24 09:59 DC 10/08/24 07:34 Meropenem 50 ml @ 17 mls/hr Q8HR IV 10/08/24 14:00 10/08/24 14:06 Vancomycin HCl 100 ml @ 100 mls/hr Q8H IV 10/08/24 13:00 10/08/24 14:51 Diagnostic Test (Pha) (Accu-Chek Comfort Curve T) 1 strip IQ4HR 10/08/24 12:00 10/08/24 17:31 DC 10/08/24 16:01 Insulin Human Regular (InsuLIN R) IQ4HR SC 10/08/24 12:00 10/08/24 17:31 DC 10/08/24 16:00 Dextrose 50 ml UD PRN IV Blood Sugar LESS THAN 60 10/08/24 10:00 Norepinephrine Bitartrate 32 mg/ Sodium Chloride 250 ml @ 0.938 mls/ hr Q24H IV 10/08/24 10:15 10/08/24 14:31 Heparin Sodium/ Dextrose 250 ml @ 16 mls/hr [id number] IV 10/08/24 12:00 10/08/24 12:04 Dexamethasone Sodium Phosphate (Decadron Injection) 6 mg DAILY IV 10/09/24 10:00 Insulin Human (Reg)/Sodium Chloride 100 ml @ 0.5 mls/hr Q24H IV 10/08/24 17:15 10/08/24 17:44 Diagnostic Test (Pha) (Accu-Chek Comfort Curve T) 1 strip Q90MIN 10/08/24 18:00 10/08/24 19:41 Dextrose 50 ml PRN PRN IV BG LESS Than 70 AND CALL MD 10/08/24 17:15 Insulin Glargine (Lantus) 15 units DAILY SC 10/09/24 10:00 Review of Systems Unobtainable Vital Signs Vital Signs Date Time Temp Pulse Resp B/P (MAP) Pulse Ox O2 Delivery O2 Flow Rate FiO2 10/08/24 19:15 105 24 96/66 (76) 93 107/74 (85) 10/08/24 17:51 100 10/08/24 17:32 Mechanical Ventilator+ 10/08/24 13:00 97.0 206.6 Physical Exam The patient is well-nourished and well-developed with no distress. The patient is intubated HEENT: Normocephalic, neck supple, no carotid bruits Lungs: Clear to auscultation Cardiovascular: Regular rate and region, S1, S2, no murmurs Abdomen: Soft, nontender, normal bowel sounds MENTAL STATUS: Not responsive to the surroundings, CRANIAL NERVES: Pupils are equal, round, 7-8 mm, non-reactive.There are no corneal reflexes and questionable doll's eyes phenomenon. No signs of facial weakness. There are no gagging or coughing reflexes SENSATION: No responses to pain stimuli. MOTOR: Normal tone in the upper and lower extremity. Normal muscle bulk. No fasciculations. No spontaneous movement. REFLEXES: Deep tendon reflexes are symmetrical. No pathological reflexes. CEREBELLAR/COORDINATION: Deferred GAIT/STATION: deferred. Labs/Diagnostic Data Labs Test 10/08/24 17:55 10/08/24 17:39 10/08/24 10:19 10/08/24 09:52 Range/Units Prothrombin Time 13.9 H 9.3-11.8 sec Prothrombin Time INR 1.35 H 0.9-1.15 Activated Partial Thromboplast Time > 139.0 *H 24.5-34.5 SEC Sodium Level 146 H 136-145 mmol/L Potassium Level 4.3 3.5-5.1 mmol/L Chloride Level 109 H 98-107 mmol/L Carbon Dioxide Level 19 L 20-31 mmol/L Anion Gap 18 H 5-15 Blood Urea Nitrogen 49 H 9-23 mg/dL Creatinine 1.11 0.700-1.30 mg/dL Glomerular Filtration Rate Calc 76 >90 mL/min BUN/Creatinine Ratio 44.1 H 10.0-20.0 Serum Glucose 349 H 74-106 mg/dL Calcium Level 9.5 8.7-10.4 mg/dL POC Glucose 324 H 70-106 mg/dl Troponin I High Sensitivity 1278 *H </=54 ng/L Triglycerides Level 93 < 150 mg/dL Cholesterol Level 126 < 200 mg/dL LDL Cholesterol 45 < 100 mg/dL HDL Cholesterol 58 40-59 mg/dL Blood Gas Specimen Type Arterial Blood Gas Sample Site Arterial line Blood Gas Patient Temperature 37.0 Arterial Blood Date Drawn [id number] Arterial Blood pH 7.313 L 7.350-7.450 Arterial Blood Partial Pressure CO2 59.0 H 35.0-48.0 mmHg Arterial Blood Partial Pressure O2 70.2 L 83.0-108.0 mmHg Arterial Blood HCO3 29.2 H 21.0-28.0 mmol/L Arterial Blood Oxygen Saturation 90.9 L 94.0-98.0 % Arterial Blood Base Excess 1.2 -2.0-3.0 mmol/L Arterial Blood Oxyhemoglobin 90.2 L 94.0-98.0 % Arterial Blood Carboxyhemoglobin 0.3 L 0.5-1.5 % Arterial Blood Methemoglobin 0.5 0.0-1.5 % Kp Test N/a Blood Gas Total Hemoglobin 17.60 H 13.5-17.5 g/dL Blood Gas Set Respiration Rate 24.0 Blood Gas Modality Vent - p/c FiO2 % 100.0 Blood Gas Inspiratory Pressure 26.0 Blood Gas PEEP or CPAP 12.0 Test 10/08/24 06:25 10/08/24 05:58 10/08/24 03:33 10/08/24 03:00 Range/Units Serum Osmolality 340 H 278-298 mOsm/kg Lactic Acid Level 3.4 *H 0.4-2.0 mmol/L Blood Gas Critical Value Read Back yes Blood Gas Notified Whom marcus Mreaz md Blood Gas Notified Time [id number] Blood Gas Notified By White Blood Count 22.7 H 4.4-10.8 10^3/uL Red Blood Count 5.92 H 4.5-5.90 10^6/uL Hemoglobin 16.5 13.5-17.5 g/dL Hematocrit 52.0 41.0-53.0 % Mean Corpuscular Volume 87.8 80.0-100.0 fL Mean Corpuscular Hemoglobin 27.9 L 28.0-32.0 pg Mean Corpuscular Hemoglobin Concent 31.8 L 32.0-36.0 g/dL Red Cell Distribution Width 16.0 H 11.8-14.3 % Platelet Count 291 140-450 10^3/uL Mean Platelet Volume 7.8 6.9-10.8 fL Neutrophils (%) (Auto) 90.2 H 37.0-80.0 % Lymphocytes (%) (Auto) 3.6 L 10.0-50.0 % Monocytes (%) (Auto) 5.5 0.0-12.0 % Eosinophils (%) (Auto) 0.0 0.0-7.0 % Basophils (%) (Auto) 0.7 0.0-2.0 % Neutrophils # (Auto) 20.5 H 1.6-8.6 10 ^3/uL Lymphocytes # (Auto) 0.8 0.4-5.4 10 ^3/uL Monocytes # (Auto) 1.2 0-1.3 10 ^3/uL Eosinophils # (Auto) 0 0-0.8 10 ^3/uL Basophils # (Auto) 0.2 0-0.2 10 ^3/uL Nucleated Red Blood Cells 0.7 % Hemoglobin A1c 13.4 H <5.7 % A1C Phosphorus Level 5.5 H 2.4-5.1 mg/dL Magnesium Level 2.2 1.6-2.6 mg/dL Total Bilirubin 0.3 0.2-1.0 mg/dL Aspartate Amino Transferase (AST) 432 H 13-40 U/L Alanine Aminotransferase (ALT) 402 H 7-40 U/L Alkaline Phosphatase 166 H 46-116 U/L Total Protein 5.8 5.7-8.2 g/dL Albumin 3.4 3.2-4.8 g/dL Test 10/07/24 23:20 10/07/24 22:54 10/07/24 19:30 10/07/24 19:11 Range/Units Lipase 26 12-53 U/L Thyroid Stimulating Hormone (TSH) 0.80 0.55-4.78 uIU/mL Blood Gas Comments Urine Color Light-yellow Yellow Urine Clarity Clear Clear Urine pH 5.0 5.0-9.0 Urine Specific Rousseau 1.027 1.001-1.035 Urine Protein Trace H Negative Urine Ketones Negative Negative Urine Blood 3+ H Negative /uL Urine Nitrite Negative Negative Urine Bilirubin Negative Negative Urine Urobilinogen Normal Negative mg/dL Urine Leukocyte Esterase Negative Negative /uL Urine RBC 2 0 - 3 /hpf Urine Microscopic WBC 1 0-3 /HPF Urine Squamous Epithelial Cells Few <5 /hpf Urine Bacteria Few H None Seen /hpf Urine Mucus Few None Seen Urine Glucose 4+ H Normal mg/dL Urine Opiates Screen Neg NEGATIVE Urine Fentanyl Screen Neg NEGATIVE Urine Barbiturates Screen Neg NEGATIVE Urine Phencyclidine Screen Neg NEGATIVE Urine Amphetamines Screen Neg NEGATIVE Urine Benzodiazepines Screen Neg NEGATIVE Urine Cocaine Screen Neg NEGATIVE Urine Cannabinoids Screen Pos NEGATIVE B-Type Natriuretic Peptide 454.29 0-100 pg/mL Microbiology Date/Time Source Procedure Growth Status 10/08/24 03:00 Nose MRSA Screen - Final Complete 10/07/24 19:11 Blood Blood Culture - Preliminary NO GROWTH AFTER 24 HOURS OF INCUBATION. Resulted 10/07/24 18:50 Sputum Gram Stain Pending Resulted 10/07/24 18:50 Sputum Respiratory Culture - Preliminary Resulted Assessment Deep coma Hypoxic encephalopathy Metabolic encephalopathy Cardiopulmonary arrest/status post CPR Acute respiratory failure Respiratory acidosis Lactic acidosis Nonketotic hyperosmolar syndrome Heart attack Sepsis Plan/Recommendation Monitoring Supportive treatment ICU care Follow-up labs EEG follow-up CT head Stabilize vitals/pressor drip Respiratory support/vent management Heparin drip IV antibiotics More recommendation per clinical course Progress: Guarded. Poor prognosis for meaningful recovery Critical care time spent is 45 minutes This medical document was created using an electronic medical record system with [employer] dictation system. Although this document has been carefully reviewed, there may still be some phonetic and typographical errors. These areas are purely typographical due to imperfections of the software programs, and do not reflect any compromise in the patient's medical care. Plan discussed with: Other DILLON GOODMAN MD October 08, 2024 19:57
[2024-10-08] MEDS: AMIODARONE 360mg/200mL PREMIX 200 ML IV SCH (20:15)
[2024-10-08 22:12] LABS: Potassium 3.6 mmol/L (3.5-5.1)
[2024-10-08 22:13] LABS: Anion Gap 15 (5-15); Calcium 9.4 mg/dL (8.7-10.4); Carbon Dioxide 23 mmol/L (20-31)
[2024-10-08 22:18] LABS: BUN/Creatinine Ratio 51.4 (10.0-20.0)
[2024-10-08 22:27] LABS: Blood Urea Nitrogen 55 mg/dL (9-23); Chloride 110 mmol/L (98-107); Glucose 296 mg/dL (74-106); Sodium 148 mmol/L (136-145)
--- NOTE | 2024-10-08 23:00 | DVH ---
CHEST RADIOGRAPH Indication: post bronchoscopy Technique: Single frontal view of the chest was obtained Comparison: XY CHEST XRAY 1 VIEW on DOS: 10/08/24, XY CHEST PORTABLE on DOS: 10/08/24, XY CHEST PORTABLE on DOS: 10/07/24 FINDINGS: Lines and Tubes: Endotracheal tube 5.4 cm above the bhanu. Enteric tube is seen however left diaphra gm is occluded adequately to determine the enteric tube is below the. Lungs: Bibasilar airspace disease Pleura: No effusion. No pneumothorax. Cardiomediastinal contours: Unremarkable Bones: No acute osseous abnormality. IMPRESSION: 1. Endotracheal tube in place 5.4 cm above the bhanu 2. Tip of the enteric tube is not visualized 3. Bibasilar airspace disease
[2024-10-09] VITALS (112 sets, daily range): BP systolic 54–185; BP diastolic 11–107; PULSE 70–105; RESP 19–28; O2SAT 73–100
[2024-10-09 02:25] LABS: Base Excess -2.6 mmol/L (-2.0-3.0)
[2024-10-09 02:27] LABS: Anion Gap 11 (5-15); Carbon Dioxide 24 mmol/L (20-31); Chloride 113 mmol/L (98-107); Potassium 3.4 mmol/L (3.5-5.1); Sodium 148 mmol/L (136-145)
[2024-10-09 02:28] LABS: Calcium 9.5 mg/dL (8.7-10.4)
[2024-10-09 02:32] LABS: BUN/Creatinine Ratio 52.2 (10.0-20.0); Blood Urea Nitrogen 59 mg/dL (9-23); Glucose 220 mg/dL (74-106)
[2024-10-09] MEDS: PHENYLEPHRINE IV 250 ML IV ONE (02:39)
[2024-10-09] MEDS: PHENYLEPHRINE IV 250 ML IV SCH (03:09)
[2024-10-09 03:26] LABS: Basophils # (auto) 0.1 10 ^3/uL (0-0.2); Basophils % (auto) 0.4 % (0.0-2.0); Eosinophils # (auto) 0 10 ^3/uL (0-0.8); Hematocrit 51.7 % (41.0-53.0); Hemoglobin 16.9 g/dL (13.5-17.5); Lymphocytes # (auto) 1.5 10 ^3/uL (0.4-5.4); Lymphocytes % (auto) 10.3 % (10.0-50.0); Mean Corpuscular Hemoglobin 28.5 pg (28.0-32.0); Mean Corpuscular Hgb Conc. 32.7 g/dL (32.0-36.0); Mean Corpuscular Volume 87.2 fL (80.0-100.0); Monocytes # (auto) 1.1 10 ^3/uL (0-1.3); Monocytes % (auto) 7.4 % (0.0-12.0); Neutrophils # (auto) 11.9 10 ^3/uL (1.6-8.6); Neutrophils % (auto) 81.9 % (37.0-80.0); Nucleated Red Blood Cells % 0.9 %; Platelet Count (auto) 242 10^3/uL (140-450); Red Blood Cells 5.93 10^6/uL (4.5-5.90); Red Cell Distribution Width 16.9 % (11.8-14.3); White Blood Cell 14.6 10^3/uL (4.4-10.8)
[2024-10-09 03:42] LABS: Albumin 3.5 g/dL (3.2-4.8); Anion Gap 12 (5-15); BUN/Creatinine Ratio 46.5 (10.0-20.0); Bilirubin, Total 0.4 mg/dL (0.2-1.0); Calcium 9.4 mg/dL (8.7-10.4); Carbon Dioxide 26 mmol/L (20-31); Potassium 3.5 mmol/L (3.5-5.1)
[2024-10-09 03:45] LABS: Sodium 149 mmol/L (136-145)
[2024-10-09 03:46] LABS: Alanine Aminotransferase 341 U/L (7-40); Alkaline Phosphatase 121 U/L (46-116); Aspartate Aminotransferase 204 U/L (13-40); Blood Urea Nitrogen 59 mg/dL (9-23); Chloride 111 mmol/L (98-107); Glucose 232 mg/dL (74-106)
[2024-10-09] MEDS: HEPARIN DRIP/D5W 100UNITS/ML 250 ML IV SCH ×2 (04:00→17:38)
[2024-10-09] MEDS: ALBUMIN 25% 100 ML IV ONE ×2 (04:50→05:00)
[2024-10-09] MEDS: DOPamine 1600MCG/ML D5W 250 ML IV SCH (05:00)
--- NOTE | 2024-10-09 05:29 | ED.PDOC ---
Was a procedure done? Was a procedure done?: Yes Sedation Sedation?: No Chest Tube Indication: Pneumothorax Procedure: Sterile preparation, Chest Tube Size (Pig tail) Anesthetic: Nothing Site: L 3rd intercostal space Drainage: Air, Fluid Informed consent obtained: No Risks/benefits/alt described: No Notes Emergent chest tube placed for pneumothorax in the icu. I was assisted by Dr. Woodrow chowdhury and AVIVA Faith MD October 09, 2024 05:29
--- NOTE | 2024-10-09 05:42 | DVH ---
CHEST RADIOGRAPH Indication: resp failure Technique: Single frontal view of the chest was obtained COMPARISON: XY CHEST XRAY 1 VIEW on DOS: 10/08/24, XY CHEST XRAY 1 VIEW on DOS: 10/08/24, XY CHEST PORTAB LE on DOS: 10/08/24, XY CHEST PORTABLE on DOS: 10/07/24 FINDINGS: Lines and Tubes: Unchanged. Lungs: Stable appearing right hemithoracic opacification and pleural effusion. Pleura: New moderate left pneumothorax with mild associated [id number] midline shift suggesting te nsion. The apical lung to pleural margin measures 4.2 cm and the lateral lung to pleural margin measu res 2.0 cm. Cardiomediastinal contours: Otherwise unremarkable. Bones: Unremarkable IMPRESSION: 1. New moderate left tension pneumothorax. 2. Grossly stable appearing right hemithoracic opacification. 3. Lines and tubes unchanged. 4. These findings were discussed with and acknowledged by Dr. Cabrera at 5:38 a.m. On October 09, 2024.
[2024-10-09] MEDS: POTASSIUM CHL 20MEQ/50ML 50 ML IV ONE (05:50)
--- NOTE | 2024-10-09 06:04 | DVH ---
CHEST RADIOGRAPH Indication: chest tube placement Technique: Single frontal view of the chest was obtained COMPARISON: XY CHEST PORTABLE on DOS: 10/09/24, XY CHEST XRAY 1 VIEW on DOS: 10/08/24, XY CHEST XRAY 1 EW on DOS: 10/08/24, XY CHEST PORTABLE on DOS: 10/08/24, XY CHEST PORTABLE on DOS: 10/07/24 FINDINGS: Lines and Tubes: Interval placement of left-sided chest tube. Remaining lines and tubes unchanged. Lungs: Interval resolution of left pneumothorax. Progressive increase in right hemithoracic opacifica tion consistent with probable layering pleural effusion. Cardiomediastinal contours: Unremarkable Bones: Unremarkable IMPRESSION: 1. Interval resolution of left pneumothorax status post placement of chest tube. 2. Progressive increase in right hemithoracic opacification, likely secondary to layering pleural eff usion. 3. Remaining lines and tubes unchanged.
--- NOTE | 2024-10-09 06:10 | RESUS ---
MATTHEW BRUNNER ASSESSSMENT History of Events History of Events: Pt admitted on 10/07/24 s/p CPR. Pt was being bagged d/t a O2 saturation of 76% when pulses were lost. Matthew brunner called. Initial Information Date: October 09, 2024 Time: 04:31 Location of Arrest: ICU ([facility]) Arrest Witnessed: Yes CPR started initial time: 04:31 CPR started by whom: Hospital Staff Pre-Hospital Care: Pre-Code Care (inpatient) Type of arrest: Cardiac, Respiratory, Adult, Witnessed Spontaneous Respirations: No Pulse Present: No Monitoring: ECG, Pulse Oximetry, Telemetry Airway Ventilation Breathing at Onset: Assisted Oxygen Delivery Method: Ambu-Bag Time of first Assisted Ventila: 04:31 Artificial Ventilation: Bag/Endo tube Intubation Size: 8.0 cuffed Intubated orally: Yes Intubated Nasaly: No Tube secured at: 27 Cricoid pressure done: Yes Comments: Pt was previously intubated prior to code Circulation Circulation #1: Time: 04:31 Pulse Rate (adult): 0 Blood Pressure Systolic: 0 Blood Pressure Diastolic: 0 Temperature (Fahrenheit): 93.2 (F; rectal) Circulation #2: Time: 04:33 Pulse Rate (adult): 0 Blood Pressure Systolic: 0 Blood Pressure Diastolic: 0 Circulation Comment: PEA Circulation #3: Time: 04:35 Pulse Rate (adult): 138 Blood Pressure Systolic: 199 Blood Pressure Diastolic: 114 Circulation Comment: ROSC Circulation #4: Time: 04:48 Pulse Rate (adult): 101 Blood Pressure Systolic: 148 Blood Pressure Diastolic: 121 Temperature (Fahrenheit): 92.8 (F; rectal) Medications & Response Medications and Responses #1: Medication Time: 04:31 ADULT Medications Given ADULT: Epinephrine 0.5 mg, Sodium Bacarbinate 50 meq Route of Administration: IV Heart Rate: 0 EKG Rhythm: PEA Blood Pressure Systolic: 0 Blood Pressure Diastolic: 0 Respiratory Rate: 0 Medications and Responses #2: Medication Time: 04:32 ADULT Medications Given ADULT: Calcium Chloride 10 mL Route of Administration: IV Heart Rate: 0 EKG Rhythm: PEA Blood Pressure Systolic: 0 Blood Pressure Diastolic: 0 Respiratory Rate: 0 Medications and Responses #3: Medication Time: 04:34 ADULT Medications Given ADULT: Epinephrine 1 mg Route of Administration: IV Heart Rate: 0 Blood Pressure Systolic: 0 Blood Pressure Diastolic: 0 Respiratory Rate: 0 Procedure - Central Venous Cat Central venous catheter site: Rt Femoral Comment: Placed on 10/07/24 by MD Kt Resident Procedure - West Catheter Urinary Catheter Type/Location: Uretheral (West) Urine Appearance: Clear Urine Color: Straw Comment: Placed prior to code Nurses Notes Dirk Coma Scale Eye Opening: None (1) [place] Coma Scale Verbal: None (1) [place] Coma Scale Motor: None (1) Glascow Total: 3 Pupil Reaction: Non Reactive Bedside Blood Glucose: 202 EKG Rhythm: Sinus Tachycardia (HR 104 @ 0443) Nurses Notes - Comment: 0443: XR at bedside 0445: Verbal order to start Dopamine; Albumin 25% 0505: Dr Mota, Residents Kt and Cheri at bedside for chest tube insertion Time Code Ended Time Code Ended: 04:35 Post Arrest Status: Ventilated Outcome of code: Successful Attending called: Yes Code Team Present: MD Kt; RVIER Rivera; Lore Sanchez RN - ICU Charge; Elizabeth Arriaga RN - Client Relations Associate; Mary Lou Newell RN; Ruthann Freeman RN; Shilpa Mckinney RN; Kay Tolentino, RT ROSC Time of ROSC: 04:35 Pt Meets Criteria for Therapeu: Yes (Pt is already being cooled) Elizabeth Yang October 09, 2024 06:10
[2024-10-09] MEDS: DexAMETHasone SOD PHOS 10MG/1ML VIAL INJ IV SCH (07:31)
[2024-10-09] MEDS: INSULIN LANTUS (GLARGINE) 1 /0.01ml (100units/ml) SC SCH (07:42)
[2024-10-09 09:08] LABS: Base Excess 1.7 mmol/L (-2.0-3.0)
[2024-10-09 10:39] LABS: Anion Gap 9 (5-15); Calcium 9.9 mg/dL (8.7-10.4); Carbon Dioxide 30 mmol/L (20-31)
[2024-10-09 10:43] LABS: Chloride 111 mmol/L (98-107); Potassium 3.3 mmol/L (3.5-5.1); Sodium 150 mmol/L (136-145)
[2024-10-09 10:44] LABS: BUN/Creatinine Ratio 55.9 (10.0-20.0); Blood Urea Nitrogen 52 mg/dL (9-23); Glucose 187 mg/dL (74-106)
[2024-10-09 10:46] LABS: INR 1.25 (0.9-1.15)
--- NOTE | 2024-10-09 12:08 | DVH ---
CHEST RADIOGRAPH Indication: LEFT CHEST EDEMA S/P CHEST TUBE Technique: Single frontal view of the chest was obtained COMPARISON: XY CHEST PORTABLE on DOS: 10/09/24, XY CHEST PORTABLE on DOS: 10/09/24, XY CHEST XRAY 1 VIEW on DOS: 10/08/24, XY CHEST XRAY 1 VIEW on DOS: 10/08/24, XY CHEST PORTABLE on DOS: 10/08/24 FINDINGS: Lines and Tubes: Left-sided chest tube in the in the apex. Endotracheal tube 5.5 cm above the bhanu. Complete opacification of the right buffy thorax. Distal NG tube not well delineated. KUB could be p erformed for further assessment. Lungs: Clear Pleura: No effusion. No pneumothorax. Cardiomediastinal contours: Unremarkable Bones: Unremarkable IMPRESSION: 1. Endotracheal tube 5.5 cm above the bhanu Distal NG tube not well delineated No left-sided pneumothorax. Complete opacification of the right buffy thorax Effacement right heart border. Heart size can not be assessed. No appreciable change from the prior study of 10/09/2024, time 5:32 a.m.
--- NOTE | 2024-10-09 12:10 | ECG ---
[facility] Test Date: 2024-10-08 Test Time: 13:44:55 Pat Name: ALEXX RAMIREZ Department: ICU Room: [address] [place] [address] A Gender: M Director Client Services: CORRINE : 1960 Requested By: LILLY CHIU Order Number: [id number] Reading MD: Measurements Intervals [place] Rate: 160 P: 0 ME: 0 QRS: -58 QRSD: 84 T: 87 QT: 263 QTc: 429 Interpretive Statements Atrial fibrillation with rapid V-rate Multiple ventricular premature complexes Abnormal R-wave progression, early transition Inferior infarct, old Lateral leads are also involved Please click the below link to view image of tracing.
--- NOTE | 2024-10-09 13:08 | DVHPN2 ---
Progress Note - Dictate Date Seen: October 09, 2024 Medical Necessity Reason Pt with a Central, PICC or Fol: Yes The following are medically ne: Central Line, West Catheter vital signs Vital Sign Date Time Temp Pulse Resp B/P (MAP) Pulse Ox O2 Delivery O2 Flow Rate FiO2 10/09/24 12:30 73 24 122/69 (86) 92 121/75 (90) 10/09/24 12:00 100 10/09/24 11:35 Mechanical Ventilator+ 10/09/24 06:10 199.0 Total Intake and Output 10/08/24 10/08/24 10/09/24 15:00 23:00 07:00 Intake Total 3673.663 ml 1886.006 ml 3033.884 ml Output Total 775 ml 550 ml Balance 3673.663 ml 1111.006 ml 2483.884 ml medications Current Medications Medications Dose Ordered Sig/Chuck Route Start Time Stop Time Status Last Admin Dose Admin Vasopressin 20 units/Sodium Chloride 100 ml @ 9 mls/hr Q11H7M IV 10/07/24 19:00 10/09/24 07:32 9 MLS/HR Epinephrine HCl 250 ml @ 7.5 mls/hr Q24H IV 10/07/24 19:45 10/09/24 01:15 7.5 MLS/HR Midazolam HCl 50 ml @ 1 mls/hr Q24H IV 10/07/24 21:00 10/08/24 05:46 4 MLS/HR Pantoprazole Sodium 40 mg BID IV 10/08/24 10:00 10/09/24 07:31 40 MG Sodium Chloride 1,000 ml @ 150 mls/hr Q6H40M IV 10/07/24 23:00 10/09/24 12:09 150 MLS/HR Aspirin 81 mg DAILY PO 10/08/24 10:00 10/09/24 07:31 81 MG Acetaminophen 650 mg Q6HP PRN PO 10/08/24 01:15 Morphine Sulfate 2 mg Q4HPRN PRN IV 10/08/24 01:15 Fentanyl Citrate 250 ml @ 2.5 mls/hr Q24H IV 10/08/24 01:28 10/08/24 01:34 7.5 MLS/HR Vancomycin HCl 0 ml @ 0 mls/hr UD IV 10/08/24 05:45 Levalbuterol HCl 0.625 mg Q6HR NEB 10/08/24 06:00 10/09/24 11:59 0.625 MG Ipratropium [place] 0.5 mg Q6HWA NEB 10/08/24 06:00 10/09/24 11:59 0.5 MG Meropenem 50 ml @ 17 mls/hr Q8HR IV 10/08/24 14:00 10/09/24 12:09 17 MLS/HR Vancomycin HCl 100 ml @ 100 mls/hr Q8H IV 10/08/24 13:00 10/08/24 22:02 100 MLS/HR Dextrose 50 ml UD PRN IV 10/08/24 10:00 Norepinephrine Bitartrate 32 mg/ Sodium Chloride 250 ml @ 0.938 mls/ hr Q24H IV 10/08/24 10:15 10/09/24 07:44 14.063 MLS/HR Dexamethasone Sodium Phosphate 6 mg DAILY IV 10/09/24 10:00 10/09/24 07:31 6 MG Diagnostic Test (Pha) 1 strip Q90MIN 10/08/24 18:00 10/09/24 11:59 1 STRIP Dextrose 50 ml PRN PRN IV 10/08/24 17:15 Insulin Glargine 15 units DAILY SC 10/09/24 10:00 10/09/24 07:42 15 UNITS Insulin Human (Reg)/Sodium Chloride 100 ml @ 1 mls/hr Q24H IV 10/08/24 22:00 10/09/24 02:55 6 MLS/HR Phenylephrine HCl 250 ml @ 30 mls/hr Q8H20M IV 10/09/24 02:45 10/09/24 06:37 135 MLS/HR Heparin Sodium/ Dextrose 250 ml @ 10 mls/hr Q24H IV 10/09/24 04:00 10/09/24 04:00 10 MLS/HR Dopamine HCl/ Dextrose 250 ml @ 24.244 mls/ hr [id number] IV 10/09/24 05:00 laboratory and microbiology Laboratory Tests 10/09/24 10:10 10/09/24 03:15 Test 10/09/24 10:10 Range/Units Serum Glucose 187 H 74-106 mg/dL Assessment/Plan Impression Acute hypoxemic respiratory failure Poorly controlled diabetes /HONK S/p cardiac arrest ? Lung cancer KATHERINE Patient seen and examined in ICU Events Patient was observed overnight Additional event of cardiac arrest reported Required 17 minutes of CPR per ACLS protocols ROSC was obtained On mechanical ventilation Transitioned to pressure control for severe hypoxemia PEEP 5, FiO2 100% Chest x-ray s/p CPR showed left pneumothorax and chest tube was placed ABG reviewed Management Vent support Titrate to maintain sats 90% or above Sedation for vent synchrony Continue antibiotics F/u cultures Bronchodilators DC steroids Monitor renal function Monitor electrolytes Supplement as needed Pressors as needed for hemodynamic support To maintain a mean arterial pressure of 65 mmHg Glycemic control F/u cardiology DVT prophylaxis Critical care time 35 minutes Plan discussed with: Other (Rn) NELL PEREIRA MD October 09, 2024 13:08
--- NOTE | 2024-10-09 13:08 | DVHPN2 ---
Progress Note - Dictate Date Seen: October 08, 2024 Medical Necessity Reason Pt with a Central, PICC or Fol: Yes The following are medically ne: Central Line, West Catheter vital signs Vital Sign Date Time Temp Pulse Resp B/P (MAP) Pulse Ox O2 Delivery O2 Flow Rate FiO2 10/09/24 12:30 73 24 122/69 (86) 92 121/75 (90) 10/09/24 12:00 100 10/09/24 11:35 Mechanical Ventilator+ 10/09/24 06:10 199.0 Total Intake and Output 10/08/24 10/08/24 10/09/24 15:00 23:00 07:00 Intake Total 3673.663 ml 1886.006 ml 3033.884 ml Output Total 775 ml 550 ml Balance 3673.663 ml 1111.006 ml 2483.884 ml medications Current Medications Medications Dose Ordered Sig/Chuck Route Start Time Stop Time Status Last Admin Dose Admin Vasopressin 20 units/Sodium Chloride 100 ml @ 9 mls/hr Q11H7M IV 10/07/24 19:00 10/09/24 07:32 9 MLS/HR Epinephrine HCl 250 ml @ 7.5 mls/hr Q24H IV 10/07/24 19:45 10/09/24 01:15 7.5 MLS/HR Midazolam HCl 50 ml @ 1 mls/hr Q24H IV 10/07/24 21:00 10/08/24 05:46 4 MLS/HR Pantoprazole Sodium 40 mg BID IV 10/08/24 10:00 10/09/24 07:31 40 MG Sodium Chloride 1,000 ml @ 150 mls/hr Q6H40M IV 10/07/24 23:00 10/09/24 12:09 150 MLS/HR Aspirin 81 mg DAILY PO 10/08/24 10:00 10/09/24 07:31 81 MG Acetaminophen 650 mg Q6HP PRN PO 10/08/24 01:15 Morphine Sulfate 2 mg Q4HPRN PRN IV 10/08/24 01:15 Fentanyl Citrate 250 ml @ 2.5 mls/hr Q24H IV 10/08/24 01:28 10/08/24 01:34 7.5 MLS/HR Vancomycin HCl 0 ml @ 0 mls/hr UD IV 10/08/24 05:45 Levalbuterol HCl 0.625 mg Q6HR NEB 10/08/24 06:00 10/09/24 11:59 0.625 MG Ipratropium [place] 0.5 mg Q6HWA NEB 10/08/24 06:00 10/09/24 11:59 0.5 MG Meropenem 50 ml @ 17 mls/hr Q8HR IV 10/08/24 14:00 10/09/24 12:09 17 MLS/HR Vancomycin HCl 100 ml @ 100 mls/hr Q8H IV 10/08/24 13:00 10/08/24 22:02 100 MLS/HR Dextrose 50 ml UD PRN IV 10/08/24 10:00 Norepinephrine Bitartrate 32 mg/ Sodium Chloride 250 ml @ 0.938 mls/ hr Q24H IV 10/08/24 10:15 10/09/24 07:44 14.063 MLS/HR Dexamethasone Sodium Phosphate 6 mg DAILY IV 10/09/24 10:00 10/09/24 07:31 6 MG Diagnostic Test (Pha) 1 strip Q90MIN 10/08/24 18:00 10/09/24 11:59 1 STRIP Dextrose 50 ml PRN PRN IV 10/08/24 17:15 Insulin Glargine 15 units DAILY SC 10/09/24 10:00 10/09/24 07:42 15 UNITS Insulin Human (Reg)/Sodium Chloride 100 ml @ 1 mls/hr Q24H IV 10/08/24 22:00 10/09/24 02:55 6 MLS/HR Phenylephrine HCl 250 ml @ 30 mls/hr Q8H20M IV 10/09/24 02:45 10/09/24 06:37 135 MLS/HR Heparin Sodium/ Dextrose 250 ml @ 10 mls/hr Q24H IV 10/09/24 04:00 10/09/24 04:00 10 MLS/HR Dopamine HCl/ Dextrose 250 ml @ 24.244 mls/ hr [id number] IV 10/09/24 05:00 laboratory and microbiology Laboratory Tests 10/09/24 10:10 10/09/24 03:15 Test 10/09/24 10:10 Range/Units Serum Glucose 187 H 74-106 mg/dL Assessment/Plan Impression Acute hypoxemic respiratory failure Poorly controlled diabetes /HONK S/p cardiac arrest ? Lung cancer KATHERINE Patient seen and examined in ICU Events On mechanical ventilation S/p cardiac arrest PEEP 5, FiO2 100% Patient desaturating to 87%, concern raised for aspiration Emergent bronchoscopy was performed at the bedside Mucosa of the right lung appeared infiltrated with possible tumor Biopsy deferred due to instability See separate note for procedure in detail Labs and imaging reviewed ABG reviewed Management Vent support Titrate to maintain sats 90% or above Sedation for vent synchrony Continue antibiotics F/u cultures Bronchodilators Monitor renal function Monitor electrolytes Supplement as needed Pressors as needed for hemodynamic support To maintain a mean arterial pressure of 65 mmHg Glycemic control F/u cardiology DVT prophylaxis Critical care time 35 minutes Plan discussed with: Other (Rn) NELL PEREIRA MD October 09, 2024 13:08
--- NOTE | 2024-10-09 13:09 | DVHNC2 ---
Procedure - Date of service: 10/11/2024 Procedure- Left femoral central line placement ultrasound guided Indication- Intravenous access Procedure in detail Consent was obtained and timeout performed per protocol. The patient was placed in the supine position and the left femoral vein was localized using ultrasound SonoSite. ChloraPrep was used to clean the operative field, sterile drapes used to cover the area and local analgesia Lidocaine 1% 3 cc. Triple-lumen catheter was inserted over the wire with direct ultrasound guidance in the left femoral vein. The wire was removed, catheter flushed with normal saline and secured with 2 sutures. Sterile dressing applied. No complications. NELL PEREIRA MD October 09, 2024 13:09
[2024-10-09 14:45] LABS: Anion Gap 10 (5-15); Calcium 9.4 mg/dL (8.7-10.4); Carbon Dioxide 30 mmol/L (20-31)
[2024-10-09 14:50] LABS: BUN/Creatinine Ratio 59.8 (10.0-20.0)
[2024-10-09 14:51] LABS: Blood Urea Nitrogen 49 mg/dL (9-23); Chloride 111 mmol/L (98-107); Glucose 189 mg/dL (74-106); Potassium 3.3 mmol/L (3.5-5.1); Sodium 151 mmol/L (136-145)
--- NOTE | 2024-10-09 15:30 | DVHPN2 ---
Subjective The patient is seen and examined at bedside. The patient remained intubated and unresponsive Reviewed: Care Plan, H&P, Labs, Medications, Previous Orders, Radiology Changes from previous H/P or p: No Changes Objective Vitals Vital Signs Date Time Temp Pulse Resp B/P (MAP) Pulse Ox O2 Delivery O2 Flow Rate FiO2 10/09/24 15:15 74 24 143/75 (97) 86 130/77 (94) 10/09/24 14:07 100 10/09/24 13:31 Mechanical Ventilator+ 10/09/24 06:10 199.0 Intake/Output Intake and Output 10/09/24 07:00 Intake Total 8593.553 ml Output Total 1325 ml Balance 7268.553 ml Intake Oral 50 ml IV Total 8543.553 ml Output Urine Total 1325 ml General Appearance: Other (Intubated, on vent, unable to exam) HEENT: Atraumatic, Mucous membr. moist/pink Cardiovascular: Regular rate, Normal S1, Normal S2, No murmurs, Gallops, Rubs Abdomen: Normal bowel sounds, Soft, No tenderness Medications Current Medications Medications Dose Ordered Sig/Chuck Route Start Time Stop Time Status Last Admin Dose Admin Vasopressin 20 units/Sodium Chloride 100 ml @ 9 mls/hr Q11H7M IV 10/07/24 19:00 10/09/24 07:32 9 MLS/HR Epinephrine HCl 250 ml @ 7.5 mls/hr Q24H IV 10/07/24 19:45 10/09/24 01:15 7.5 MLS/HR Midazolam HCl 50 ml @ 1 mls/hr Q24H IV 10/07/24 21:00 10/08/24 05:46 4 MLS/HR Pantoprazole Sodium 40 mg BID IV 10/08/24 10:00 10/09/24 07:31 40 MG Sodium Chloride 1,000 ml @ 150 mls/hr Q6H40M IV 10/07/24 23:00 10/09/24 12:09 150 MLS/HR Aspirin 81 mg DAILY PO 10/08/24 10:00 10/09/24 07:31 81 MG Acetaminophen 650 mg Q6HP PRN PO 10/08/24 01:15 Morphine Sulfate 2 mg Q4HPRN PRN IV 10/08/24 01:15 Fentanyl Citrate 250 ml @ 2.5 mls/hr Q24H IV 10/08/24 01:28 10/08/24 01:34 7.5 MLS/HR Vancomycin HCl 0 ml @ 0 mls/hr UD IV 10/08/24 05:45 Levalbuterol HCl 0.625 mg Q6HR NEB 10/08/24 06:00 10/09/24 11:59 0.625 MG Ipratropium [place] 0.5 mg Q6HWA NEB 10/08/24 06:00 10/09/24 11:59 0.5 MG Meropenem 50 ml @ 17 mls/hr Q8HR IV 10/08/24 14:00 10/09/24 12:09 17 MLS/HR Vancomycin HCl 100 ml @ 100 mls/hr Q8H IV 10/08/24 13:00 10/08/24 22:02 100 MLS/HR Dextrose 50 ml UD PRN IV 10/08/24 10:00 Norepinephrine Bitartrate 32 mg/ Sodium Chloride 250 ml @ 0.938 mls/ hr Q24H IV 10/08/24 10:15 10/09/24 07:44 14.063 MLS/HR Diagnostic Test (Pha) 1 strip Q90MIN 10/08/24 18:00 10/09/24 15:17 1 STRIP Dextrose 50 ml PRN PRN IV 10/08/24 17:15 Insulin Glargine 15 units DAILY SC 10/09/24 10:00 10/09/24 07:42 15 UNITS Insulin Human (Reg)/Sodium Chloride 100 ml @ 1 mls/hr Q24H IV 10/08/24 22:00 10/09/24 02:55 6 MLS/HR Phenylephrine HCl 250 ml @ 30 mls/hr Q8H20M IV 10/09/24 02:45 10/09/24 06:37 135 MLS/HR Heparin Sodium/ Dextrose 250 ml @ 10 mls/hr Q24H IV 10/09/24 04:00 10/09/24 14:27 10 MLS/HR Dopamine HCl/ Dextrose 250 ml @ 24.244 mls/ hr [id number] IV 10/09/24 05:00 Laboratory Results Laboratory Tests 10/09/24 03:15 10/09/24 14:14 Chemistry Test 10/08/24 16:00 10/08/24 17:55 10/08/24 21:55 10/09/24 01:42 Calcium Level 8.9 mg/dL (8.7-10.4) 9.5 mg/dL (8.7-10.4) 9.4 mg/dL (8.7-10.4) 9.5 mg/dL (8.7-10.4) Test 10/09/24 03:15 10/09/24 10:10 10/09/24 14:14 Albumin 3.5 g/dL (3.2-4.8) Calcium Level 9.4 mg/dL (8.7-10.4) 9.9 mg/dL (8.7-10.4) 9.4 mg/dL (8.7-10.4) Magnesium Level 2.0 mg/dL (1.6-2.6) Phosphorus Level 5.0 mg/dL (2.4-5.1) Total Protein 6.0 g/dL (5.7-8.2) Coagulation Test 10/08/24 17:55 10/09/24 01:42 10/09/24 10:10 Prothrombin Time 13.9 sec (9.3-11.8) H 13.0 sec (9.3-11.8) H Prothrombin Time INR 1.35 (0.9-1.15) H 1.25 (0.9-1.15) H Activated Partial Thromboplast Time > 139.0 SEC (24.5-34.5) *H 95.9 SEC (24.5-34.5) *H 67.0 SEC (24.5-34.5) H LFT Test 10/09/24 03:15 Alanine Aminotransferase (ALT) 341 U/L (7-40) H Alkaline Phosphatase 121 U/L (46-116) H Aspartate Amino Transferase (AST) 204 U/L (13-40) H Total Bilirubin 0.4 mg/dL (0.2-1.0) Urinalysis Test 10/07/24 19:30 Urine Color Light-yellow (Yellow) Urine Clarity Clear (Clear) Urine pH 5.0 (5.0-9.0) Urine Specific [place] 1.027 (1.001-1.035) Urine Protein Trace (Negative) H Urine Ketones Negative (Negative) Urine Blood 3+ /uL (Negative) H Urine Nitrite Negative (Negative) Urine Bilirubin Negative (Negative) Urine Urobilinogen Normal mg/dL (Negative) Urine Leukocyte Esterase Negative /uL (Negative) Urine RBC 2 /hpf (0 - 3) Urine Microscopic WBC 1 /HPF (0-3) Urine Squamous Epithelial Cells Few /hpf (<5) Urine Bacteria Few /hpf (None Seen) H Urine Mucus Few (None Seen) Urine Glucose 4+ mg/dL (Normal) H Blood Gas Results Test 10/09/24 02:06 10/09/24 08:42 Arterial Blood pH 7.321 (7.350-7.450) 7.355 (7.350-7.450) FiO2 % 100.0 100.0 Microbiology Microbiology Date/Time Source Procedure Growth Status 10/08/24 11:15 Sputum Gram Stain Pending Resulted 10/08/24 11:15 Sputum Respiratory Culture - Preliminary Resulted 10/08/24 03:00 Nose MRSA Screen - Final Complete 10/07/24 19:11 Blood Blood Culture - Preliminary NO GROWTH AFTER 24 HOURS OF INCUBATION. Resulted Labs and/or images reviewed: Labs reviewed by me Assessment/Plan Assessment/Plan Neurology Acute metabolic encephalopathy Probable Anoxic brain injury with cerebral edema - on mechanical ventilation - dexamethasone 6 mg daily Respiratory Cardiopulmonary arrest status post ROSC Acute on chronic hypercarbic respiratory failure Respiratory acidosis Probable aspiration pneumonia with Right lung infiltrates with a mucus plugging status post bronchoscopy ? Right pleural effusion - on mechanical ventilation with a PEEP 12, FiO2 100% - bronchial washing sent for Gram staining and culture - on IV antibiotics vancomycin and meropenem Cardiovascular Cardiopulmonary arrest status post ROSC Septic shock likely due to pneumonia from aspiration NSTEMI likely type 1 ? Ischemic coronary artery disease Atrial fibrillation with a RVR, onset unknown - amiodarone for rhythm control - anticoagulation with a heparin drip with aspirin - vasopressors maintaining map more than 65 Infectious disease Septic shock likely due to aspiration pneumonia - vasopressors and IV antibiotics Gastroenterology Shock liver - improving Nephrology KATHERINE, improved Hyperosmolar hypovolemic Hypernatremia - on IV fluids Endocrinology Diabetes with uncontrolled hyperglycemia, insulin dependence not known ?Hyperosmolar hyperglycemic state - on insulin drip per ICU protocol Left femoral central line for hypothermia protocol placed on 10/08 Right femoral triple-lumen catheter placed on 10/08 West's catheter placed on 10/08 Code status currently full code No family found yet. This medical document was created using an electronic medical record system with [employer] direct computerized dictation system. Although this document has been carefully reviewed, there may still be some phonetic and typographical errors. These areas are purely typographical due to imperfections of the software programs, and do not reflect any compromise in the patient's medical care. Plan discussed with: Other (RN) Date of Service: October 09, 2024 Billing Provider: VICTORINA DE LA O MD Common Visit Codes: [id number] INP/OBS CARE(HIGH) VICTORINA DE LA O MD October 09, 2024 15:30
[2024-10-09 17:13] LABS: INR 1.15 (0.9-1.15)
[2024-10-09 17:20] LABS: Partial Thromboplastin Time 79.4 SEC (24.5-34.5)
--- NOTE | 2024-10-09 17:38 | CONS ---
Pharmacy Clinical Information: HEPARIN DRIP PER RX 10/09/24 @1604 aPTT 79.4 OLD RATE 1000 UNITS/HR (10 ML/HR) DECREASE BY 200 UNITS/HR TO NEW RATE 800 UNITS/HR (8 ML/HR) COMMUNICATED WITH RN DESTINEE LOMAX PHARMACIST October 09, 2024 17:38
[2024-10-09 18:06] LABS: Anion Gap 11 (5-15); Carbon Dioxide 29 mmol/L (20-31); Chloride 110 mmol/L (98-107); Potassium 3.5 mmol/L (3.5-5.1); Sodium 150 mmol/L (136-145)
[2024-10-09 18:07] LABS: Calcium 9.4 mg/dL (8.7-10.4)
[2024-10-09] MEDS: VANCOMYCIN 750MG KIT 100 ML IV SCH (18:11)
[2024-10-09 18:12] LABS: BUN/Creatinine Ratio 61.3 (10.0-20.0); Blood Urea Nitrogen 46 mg/dL (9-23); Glucose 182 mg/dL (74-106)
[2024-10-09 18:13] LABS: Magnesium 1.7 mg/dL (1.6-2.6)
[2024-10-09] MEDS ORDERED: LORazepam 2MG/ML-1ML VIAL IV PRN (21:30)
[2024-10-09] MEDS ORDERED: MORPHINE SULFATE INJ 2 MG/ml SYRG IV PRN (21:30)
[2024-10-09 23:48] LABS: Potassium 3.9 mmol/L (3.5-5.1)
[2024-10-09 23:49] LABS: Anion Gap 10 (5-15); Calcium 8.9 mg/dL (8.7-10.4); Carbon Dioxide 30 mmol/L (20-31); Chloride 111 mmol/L (98-107); Sodium 151 mmol/L (136-145)
[2024-10-09 23:54] LABS: INR 1.14 (0.9-1.15); Partial Thromboplastin Time 61.3 SEC (24.5-34.5); Prothrombin Time 11.9 sec (9.3-11.8)
[2024-10-09 23:56] LABS: Blood Urea Nitrogen 50 mg/dL (9-23); Glucose 182 mg/dL (74-106)
[2024-10-10] VITALS (113 sets, daily range): BP systolic 28–122; BP diastolic 45–71; PULSE 78–86; RESP 11–25; TEMP 98.6–99.1; O2SAT 79–91
[2024-10-10 02:08] LABS: Potassium 4.1 mmol/L (3.5-5.1)
[2024-10-10 02:09] LABS: Anion Gap 8 (5-15); Calcium 8.9 mg/dL (8.7-10.4); Carbon Dioxide 30 mmol/L (20-31)
[2024-10-10 02:13] LABS: Chloride 112 mmol/L (98-107); Sodium 150 mmol/L (136-145)
[2024-10-10 02:14] LABS: BUN/Creatinine Ratio 56.6 (10.0-20.0)
[2024-10-10 02:16] LABS: Blood Urea Nitrogen 47 mg/dL (9-23); Glucose 187 mg/dL (74-106)
--- NOTE | 2024-10-10 05:29 | DVH ---
CHEST RADIOGRAPH Indication: intubated/ status post CPR Technique: Single frontal view of the chest was obtained COMPARISON: XY CHEST PORTABLE on DOS: 10/09/24, XY CHEST PORTABLE on DOS: 10/09/24, XY CHEST PORTABLE on DOS: 10/09/24, XY CHEST XRAY 1 VIEW on DOS: 10/08/24, XY CHEST XRAY 1 VIEW on DOS: 10/08/24 FINDINGS: Lines and Tubes: Unchanged. Lungs: Stable appearing complete right hemithoracic opacification and obscuration of the right cardio mediastinal border. the left lung is grossly clear. No pneumothorax. Cardiomediastinal contours: Otherwise unremarkable. Bones: Unremarkable IMPRESSION: 1. Stable appearing complete right hemithoracic opacification. 2. Lines and tubes unchanged.
[2024-10-10 05:55] LABS: Basophils # (auto) 0.1 10 ^3/uL (0-0.2); Basophils % (auto) 0.5 % (0.0-2.0); Eosinophils # (auto) 0 10 ^3/uL (0-0.8); Hematocrit 46.7 % (41.0-53.0); Lymphocytes # (auto) 0.6 10 ^3/uL (0.4-5.4); Lymphocytes % (auto) 4.6 % (10.0-50.0); Mean Corpuscular Hemoglobin 28.2 pg (28.0-32.0); Mean Corpuscular Hgb Conc. 32.2 g/dL (32.0-36.0); Mean Corpuscular Volume 87.6 fL (80.0-100.0); Monocytes # (auto) 1.3 10 ^3/uL (0-1.3); Monocytes % (auto) 9.6 % (0.0-12.0); Neutrophils # (auto) 11.4 10 ^3/uL (1.6-8.6); Neutrophils % (auto) 85.3 % (37.0-80.0); Nucleated Red Blood Cells % 0.6 %; Platelet Count (auto) 197 10^3/uL (140-450); Red Blood Cells 5.33 10^6/uL (4.5-5.90); Red Cell Distribution Width 16.7 % (11.8-14.3); White Blood Cell 13.3 10^3/uL (4.4-10.8)
[2024-10-10 06:00] LABS: Anion Gap 7 (5-15); Carbon Dioxide 31 mmol/L (20-31); Potassium 4.3 mmol/L (3.5-5.1)
[2024-10-10 06:06] LABS: BUN/Creatinine Ratio 55.4 (10.0-20.0); Magnesium 1.8 mg/dL (1.6-2.6)
[2024-10-10 06:09] LABS: Blood Urea Nitrogen 51 mg/dL (9-23); Chloride 112 mmol/L (98-107); Glucose 196 mg/dL (74-106); INR 1.09 (0.9-1.15); Partial Thromboplastin Time 56.1 SEC (24.5-34.5); Prothrombin Time 11.5 sec (9.3-11.8); Sodium 150 mmol/L (136-145)
[2024-10-10 12:12] LABS: Urine Bacteria None Seen /hpf (None Seen)
[2024-10-10 12:16] LABS: Hematocrit 46.2 % (41.0-53.0); Hemoglobin 14.7 g/dL (13.5-17.5); Mean Corpuscular Hemoglobin 28.1 pg (28.0-32.0); Mean Corpuscular Hgb Conc. 31.8 g/dL (32.0-36.0); Mean Corpuscular Volume 88.4 fL (80.0-100.0); Platelet Count (auto) 193 10^3/uL (140-450); Red Blood Cells 5.23 10^6/uL (4.5-5.90); Red Cell Distribution Width 16.8 % (11.8-14.3); White Blood Cell 13.6 10^3/uL (4.4-10.8)
[2024-10-10 12:22] LABS: Basophils % (manual) 0 (0.0-2.0); Blast Cells 0; Eosinophils % (manual) 0 (0-7); Metamyelocytes % 0; Myelocytes % 0; Promyelocytes % 0; Reactive Lymphocytes 0
[2024-10-10 12:24] LABS: Albumin 3.2 g/dL (3.2-4.8); Alkaline Phosphatase 94 U/L (46-116); Amylase 38 U/L (30-118); Anion Gap 8 (5-15); BUN/Creatinine Ratio 50.5 (10.0-20.0); Bilirubin, Total 0.3 mg/dL (0.2-1.0); Calcium 8.8 mg/dL (8.7-10.4); Carbon Dioxide 31 mmol/L (20-31); Creatine Kinase IFCC 65 U/L (46-171); Lipase 26 U/L (12-53); Magnesium 1.9 mg/dL (1.6-2.6); Phosphorus 2.8 mg/dL (2.4-5.1); Potassium 4.4 mmol/L (3.5-5.1)
[2024-10-10 12:26] LABS: INR 1.09 (0.9-1.15); Prothrombin Time 11.5 sec (9.3-11.8)
[2024-10-10 12:27] LABS: Urine Blood 2+ /uL (Negative); Urine Budding Yeast MANY /hpf (None Seen); Urine Clarity Hazy (Clear); Urine Color Yellow (Yellow); Urine Mucus FEW (None Seen); Urine Protein, UAD 1+ (Negative); Urine Squamous Epithelial Cell None Seen /hpf (<5); Urine Urobilinogen 2 mg/dL (Negative); Urine WBC 7 /HPF (0-3)
[2024-10-10 12:31] LABS: Alanine Aminotransferase 230 U/L (7-40); Aspartate Aminotransferase 108 U/L (13-40); Blood Urea Nitrogen 53 mg/dL (9-23); Chloride 112 mmol/L (98-107); Glucose 207 mg/dL (74-106); Sodium 151 mmol/L (136-145); Total Protein 5.3 g/dL (5.7-8.2)
--- NOTE | 2024-10-10 12:31 | DVHPN2 ---
Subjective The patient is seen and examined at bedside. No change overnight. Apparently family had been found and they make him DNR and comfort measure only. Reviewed: Care Plan, H&P, Labs, Medications, Previous Orders, Radiology Changes from previous H/P or p: No Changes Objective Vitals Vital Signs Date Time Temp Pulse Resp B/P (MAP) Pulse Ox O2 Delivery O2 Flow Rate FiO2 10/10/24 12:15 99.0 82 24 100/66 (77) 86 210.2 103/66 (78) 10/10/24 12:00 Mechanical Ventilator+ 100 100 Intake/Output Intake and Output 10/10/24 07:00 Intake Total 5352.851 ml Output Total 1550 ml Balance 3802.851 ml Intake Oral 50 ml IV Total 5302.851 ml Output Urine Total 1550 ml General Appearance: Other (Intubated, on vent, unable to exam) HEENT: Atraumatic, Mucous membr. moist/pink Neck: Supple Lungs: Clear to auscultation, Normal air movement Cardiovascular: Regular rate, Normal S1, Normal S2, No murmurs, Gallops, Rubs Abdomen: Normal bowel sounds, Soft, No tenderness Medications Current Medications Medications Dose Ordered Sig/Chuck Route Start Time Stop Time Status Last Admin Dose Admin Vasopressin 20 units/Sodium Chloride 100 ml @ 9 mls/hr Q11H7M IV 10/07/24 19:00 10/10/24 07:40 9 MLS/HR Epinephrine HCl 250 ml @ 7.5 mls/hr Q24H IV 10/07/24 19:45 10/09/24 01:15 7.5 MLS/HR Midazolam HCl 50 ml @ 1 mls/hr Q24H IV 10/07/24 21:00 10/08/24 05:46 4 MLS/HR Pantoprazole Sodium 40 mg BID IV 10/08/24 10:00 10/10/24 07:38 40 MG Sodium Chloride 1,000 ml @ 150 mls/hr Q6H40M IV 10/07/24 23:00 10/09/24 22:36 150 MLS/HR Aspirin 81 mg DAILY PO 10/08/24 10:00 10/10/24 07:38 81 MG Acetaminophen 650 mg Q6HP PRN PO 10/08/24 01:15 Morphine Sulfate 2 mg Q4HPRN PRN IV 10/08/24 01:15 Fentanyl Citrate 250 ml @ 2.5 mls/hr Q24H IV 10/08/24 01:28 10/08/24 01:34 7.5 MLS/HR Vancomycin HCl 0 ml @ 0 mls/hr UD IV 10/08/24 05:45 Levalbuterol HCl 0.625 mg Q6HR NEB 10/08/24 06:00 10/10/24 11:38 0.625 MG Ipratropium [place] 0.5 mg Q6HWA NEB 10/08/24 06:00 10/10/24 11:38 0.5 MG Meropenem 50 ml @ 17 mls/hr Q8HR IV 10/08/24 14:00 10/10/24 05:19 17 MLS/HR Dextrose 50 ml UD PRN IV 10/08/24 10:00 Norepinephrine Bitartrate 32 mg/ Sodium Chloride 250 ml @ 0.938 mls/ hr Q24H IV 10/08/24 10:15 10/10/24 02:33 14.063 MLS/HR Diagnostic Test (Pha) 1 strip Q90MIN 10/08/24 18:00 10/10/24 12:19 1 STRIP Dextrose 50 ml PRN PRN IV 10/08/24 17:15 Insulin Glargine 15 units DAILY SC 10/09/24 10:00 10/10/24 07:38 15 UNITS Insulin Human (Reg)/Sodium Chloride 100 ml @ 1 mls/hr Q24H IV 10/08/24 22:00 10/09/24 02:55 6 MLS/HR Phenylephrine HCl 250 ml @ 30 mls/hr Q8H20M IV 10/09/24 02:45 10/09/24 06:37 135 MLS/HR Dopamine HCl/ Dextrose 250 ml @ 24.244 mls/ hr [id number] IV 10/09/24 05:00 Vancomycin HCl 100 ml @ 100 mls/hr Q8H IV 10/09/24 18:00 10/10/24 07:40 100 MLS/HR Heparin Sodium/ Dextrose 250 ml @ 8 mls/hr Q24H IV 10/09/24 17:45 10/09/24 17:38 8 MLS/HR Morphine Sulfate 1 mg Q1HP PRN IV 10/09/24 21:30 Lorazepam 1 mg Q1HP PRN IV 10/09/24 21:30 Laboratory Results Laboratory Tests 10/10/24 11:42 Chemistry Test 10/09/24 14:14 10/09/24 17:30 10/09/24 23:25 10/10/24 01:50 Calcium Level 9.4 mg/dL (8.7-10.4) 9.4 mg/dL (8.7-10.4) 8.9 mg/dL (8.7-10.4) 8.9 mg/dL (8.7-10.4) Magnesium Level 1.7 mg/dL (1.6-2.6) Phosphorus Level 3.0 mg/dL (2.4-5.1) Test 10/10/24 05:30 10/10/24 11:42 Calcium Level 9.0 mg/dL (8.7-10.4) 8.8 mg/dL (8.7-10.4) Magnesium Level 1.8 mg/dL (1.6-2.6) 1.9 mg/dL (1.6-2.6) Albumin 3.2 g/dL (3.2-4.8) Phosphorus Level 2.8 mg/dL (2.4-5.1) Total Protein 5.3 g/dL (5.7-8.2) L Coagulation Test 10/09/24 16:04 10/09/24 23:25 10/10/24 05:30 10/10/24 11:42 Prothrombin Time 12.0 sec (9.3-11.8) H 11.9 sec (9.3-11.8) H 11.5 sec (9.3-11.8) 11.5 sec (9.3-11.8) Prothrombin Time INR 1.15 (0.9-1.15) 1.14 (0.9-1.15) 1.09 (0.9-1.15) 1.09 (0.9-1.15) Activated Partial Thromboplast Time 79.4 SEC (24.5-34.5) *H 61.3 SEC (24.5-34.5) H 56.1 SEC (24.5-34.5) H 53.0 SEC (24.5-34.5) H Lipid panel Test 10/10/24 11:42 Lipase 26 U/L (12-53) LFT Test 10/10/24 11:42 Alanine Aminotransferase (ALT) 230 U/L (7-40) H Alkaline Phosphatase 94 U/L (46-116) Aspartate Amino Transferase (AST) 108 U/L (13-40) H Direct Bilirubin Pending Total Bilirubin 0.3 mg/dL (0.2-1.0) Urinalysis Test 10/10/24 12:05 Urine Color Yellow (Yellow) Urine Clarity Hazy (Clear) H Urine pH 6.0 (5.0-9.0) Urine Specific [place] 1.040 (1.001-1.035) Urine Protein 1+ (Negative) H Urine Ketones 1+ (Negative) H Urine Blood 2+ /uL (Negative) H Urine Nitrite Negative (Negative) Urine Bilirubin 1+ (Negative) Urine Urobilinogen 2 mg/dL (Negative) H Urine Leukocyte Esterase Negative /uL (Negative) Urine RBC 97 /hpf (0 - 3) Urine Microscopic WBC 7 /HPF (0-3) H Urine Squamous Epithelial Cells None seen /hpf (<5) Urine Bacteria None seen /hpf (None Seen) Urine Mucus Few (None Seen) Urine Yeast (Budding) Many /hpf (None Seen) Urine Glucose 2+ mg/dL (Normal) H Microbiology Microbiology Date/Time Source Procedure Growth Status 10/08/24 11:15 Sputum Gram Stain Pending Resulted 10/08/24 11:15 Sputum Respiratory Culture - Preliminary Resulted 10/08/24 03:00 Nose MRSA Screen - Final Complete 10/07/24 19:11 Blood Blood Culture - Preliminary NO GROWTH AFTER 48 HOURS OF INCUBATION. Resulted Labs and/or images reviewed: Labs reviewed by me Assessment/Plan Assessment/Plan Neurology Acute metabolic encephalopathy Probable Anoxic brain injury with cerebral edema - on mechanical ventilation - dexamethasone 6 mg daily Respiratory Cardiopulmonary arrest status post ROSC Acute on chronic hypercarbic respiratory failure Respiratory acidosis Probable aspiration pneumonia with Right lung infiltrates with a mucus plugging status post bronchoscopy ? Right pleural effusion - on mechanical ventilation with a PEEP 12, FiO2 100% - bronchial washing sent for Gram staining and culture - on IV antibiotics vancomycin and meropenem Cardiovascular Cardiopulmonary arrest status post ROSC Septic shock likely due to pneumonia from aspiration NSTEMI likely type 1 ? Ischemic coronary artery disease Atrial fibrillation with a RVR, onset unknown - amiodarone for rhythm control - anticoagulation with a heparin drip with aspirin - vasopressors maintaining map more than 65 Infectious disease Septic shock likely due to aspiration pneumonia - vasopressors and IV antibiotics Gastroenterology Shock liver - improving Nephrology KATHERINE, improved Hyperosmolar hypovolemic Hypernatremia - on IV fluids Endocrinology Diabetes with uncontrolled hyperglycemia, insulin dependence not known ?Hyperosmolar hyperglycemic state - on insulin drip per ICU protocol Left femoral central line for hypothermia protocol placed on 10/08 Right femoral triple-lumen catheter placed on 10/08 West's catheter placed on 10/08 For status had been changed to DNR do not resuscitate and also comfort care only by family. 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 [facility] has been consulted. Discuss with [facility] RN in room cooler installer This medical document was created using an electronic medical record system with [employer] dictation system. Although this document has been carefully reviewed, there may still be some phonetic and typographical errors. These areas are purely typographical due to imperfections of the software programs, and do not reflect any compromise in the patient's medical care. Plan discussed with: Other (RN) My Orders Orders - VICTORINA DE LA O MD Procedure Category Date Status Time Abdomen Complete US 10/10/24 Logged Sonogram 12:12 Date of Service: October 10, 2024 Billing Provider: VICTORINA DE LA O MD Common Visit Codes: [id number] INP/OBS CARE(HIGH) VICTORINA DE LA O MD October 10, 2024 12:31
[2024-10-10 12:34] LABS: Band Neutrophils % (manual) 12; Lymphocytes % (manual) 5 (10.0-50.0); Monocytes % (manual) 9 (0-12)
[2024-10-10 12:36] LABS: Anisocytosis Slight; Platelet Estimate Adequate
[2024-10-10 12:58] LABS: Bilirubin, Direct 0.1 mg/dL (<0.3)
--- NOTE | 2024-10-10 13:00 | DVHPN2 ---
Progress Note - Dictate Date Seen: October 10, 2024 Medical Necessity Reason Pt with a Central, PICC or Fol: Yes The following are medically ne: Central Line, West Catheter vital signs Vital Sign Date Time Temp Pulse Resp B/P (MAP) Pulse Ox O2 Delivery O2 Flow Rate FiO2 10/10/24 12:15 99.0 82 24 100/66 (77) 86 210.2 103/66 (78) 10/10/24 12:00 Mechanical Ventilator+ 100 100 Total Intake and Output 10/09/24 10/09/24 10/10/24 15:00 23:00 07:00 Intake Total 1768.158 ml 1770.784 ml 1813.909 ml Output Total 1100 ml 450 ml Balance 1768.158 ml 670.784 ml 1363.909 ml medications Current Medications Medications Dose Ordered Sig/Chuck Route Start Time Stop Time Status Last Admin Dose Admin Vasopressin 20 units/Sodium Chloride 100 ml @ 9 mls/hr Q11H7M IV 10/07/24 19:00 10/10/24 07:40 9 MLS/HR Epinephrine HCl 250 ml @ 7.5 mls/hr Q24H IV 10/07/24 19:45 10/09/24 01:15 7.5 MLS/HR Midazolam HCl 50 ml @ 1 mls/hr Q24H IV 10/07/24 21:00 10/08/24 05:46 4 MLS/HR Pantoprazole Sodium 40 mg BID IV 10/08/24 10:00 10/10/24 07:38 40 MG Sodium Chloride 1,000 ml @ 150 mls/hr Q6H40M IV 10/07/24 23:00 10/09/24 22:36 150 MLS/HR Aspirin 81 mg DAILY PO 10/08/24 10:00 10/10/24 07:38 81 MG Acetaminophen 650 mg Q6HP PRN PO 10/08/24 01:15 Morphine Sulfate 2 mg Q4HPRN PRN IV 10/08/24 01:15 Fentanyl Citrate 250 ml @ 2.5 mls/hr Q24H IV 10/08/24 01:28 10/08/24 01:34 7.5 MLS/HR Vancomycin HCl 0 ml @ 0 mls/hr UD IV 10/08/24 05:45 Levalbuterol HCl 0.625 mg Q6HR NEB 10/08/24 06:00 10/10/24 11:38 0.625 MG Ipratropium [place] 0.5 mg Q6HWA NEB 10/08/24 06:00 10/10/24 11:38 0.5 MG Meropenem 50 ml @ 17 mls/hr Q8HR IV 10/08/24 14:00 10/10/24 05:19 17 MLS/HR Dextrose 50 ml UD PRN IV 10/08/24 10:00 Norepinephrine Bitartrate 32 mg/ Sodium Chloride 250 ml @ 0.938 mls/ hr Q24H IV 10/08/24 10:15 10/10/24 02:33 14.063 MLS/HR Diagnostic Test (Pha) 1 strip Q90MIN 10/08/24 18:00 10/10/24 12:19 1 STRIP Dextrose 50 ml PRN PRN IV 10/08/24 17:15 Insulin Glargine 15 units DAILY SC 10/09/24 10:00 10/10/24 07:38 15 UNITS Insulin Human (Reg)/Sodium Chloride 100 ml @ 1 mls/hr Q24H IV 10/08/24 22:00 10/09/24 02:55 6 MLS/HR Phenylephrine HCl 250 ml @ 30 mls/hr Q8H20M IV 10/09/24 02:45 10/09/24 06:37 135 MLS/HR Dopamine HCl/ Dextrose 250 ml @ 24.244 mls/ hr [id number] IV 10/09/24 05:00 Vancomycin HCl 100 ml @ 100 mls/hr Q8H IV 10/09/24 18:00 10/10/24 07:40 100 MLS/HR Heparin Sodium/ Dextrose 250 ml @ 8 mls/hr Q24H IV 10/09/24 17:45 10/09/24 17:38 8 MLS/HR Morphine Sulfate 1 mg Q1HP PRN IV 10/09/24 21:30 Lorazepam 1 mg Q1HP PRN IV 10/09/24 21:30 laboratory and microbiology Laboratory Tests 10/10/24 11:42 Test 10/10/24 11:42 Range/Units Serum Glucose 207 H 74-106 mg/dL Assessment/Plan Impression Acute hypoxemic respiratory failure Poorly controlled diabetes /HONK S/p cardiac arrest ? Lung cancer KATHERINE Patient seen and examined in ICU Events On mechanical ventilation Sp cardiac arrest yesterday PEEP 5, FiO2 100% Followed by [facility] Patient remains hemodynamically unstable On 3 pressors for hemodynamic support Labs and imaging reviewed Chest x-ray shows complete white out of the right lung Left lung fully expanded S/p bronchoscopy and bronchial washings Mucosa of the right lung appears infiltrated with tumor Concern raised for lung cancer Patient may require further biopsies ABG reviewed Management Vent support Titrate to maintain sats 90% or above Sedation for vent synchrony Continue antibiotics F/u cultures Bronchodilators DC steroids Monitor renal function Monitor electrolytes Supplement as needed Pressors as needed for hemodynamic support To maintain a mean arterial pressure of 65 mmHg Glycemic control F/u cardiology DVT prophylaxis Critical care time 35 minutes Plan discussed with: Other (Rn) NELL PEREIRA MD October 10, 2024 12:59
[2024-10-10 13:16] LABS: Base Excess -1.4 mmol/L (-2.0-3.0)
[2024-10-10] MEDS ORDERED: SODIUM BICARB 8.4% 50Meq/50ml SYR INJ IV ONE (13:17)
[2024-10-10] MEDS ORDERED: DEXTROSE (50%) 50ML SYRG IV PRN (13:30)
[2024-10-10] MEDS: INSULIN LANTUS (GLARGINE) 1 /0.01ml (100units/ml) SC ONE (13:45)
[2024-10-10] MEDS: FUROSEMIDE 40 MG/4 ML VIAL IV ONE (15:01)
[2024-10-10] MEDS: AMIODARONE HCL 200 MG TAB PO ONE (15:02)
--- NOTE | 2024-10-10 15:48 | DVH ---
ABDOMINAL ULTRASOUND CLINICAL HISTORY: organ evaluation TECHNIQUE: Multiple grayscale and color Doppler ultrasound images were obtained of the abdomen. WID: COMPARISON: None FINDINGS: Liver and Biliary System: Increased echogenicity, normal size measuring 17.4 cm. No focal hepatic observations. No intrahepatic bile duct dilatation. The common duct measures 0.6 cm at the isabel he patis. There is sludge in the gallbladder. Gallbladder wall thickening measuring 6.9 mm. Pancreas: Visualized portions are unremarkable. Spleen: is within normal limits. Kidneys: The right kidney is 10.7 cm and the left kidney is 13.4 cm. No hydronephrosis, increased echogenicity, shadowing stone, or focal lesion. Simple cyst in the left kidney measures 5.5 cm. Aorta: Visualized portions are normal in caliber. IVC: Visualized portions are normal in caliber. Linear echogenic structure in the visualized IVC. A right pleural effusion is visualized. Mild abdominal ascites. IMPRESSION: 1. Mild hepatomegaly with mild hepatic steatosis. 2. Linear echogenic structure in the visualized IVC. DDX includes a catheter or chronic thrombus. 3. Gallbladder sludge. 4. Gallbladder wall thickening which could be related to volume overload, underlying hepatic dysfunct ion, less likely acute or chronic cholecystitis. 5. Right pleural effusion. 6. Mild ascites.
[2024-10-10] MEDS: ACCU-CHEK COMFORT CURVE STRIP VI SCH (16:28)
[2024-10-10] MEDS: InsuLIN REG 1unit/0.01ml Soln (100units/ml) SC SCH ×2 (16:30→22:02)
--- NOTE | 2024-10-10 17:27 | DVH ---
CHEST RADIOGRAPH Indication: intubated/ organ donation evaluation Technique: Single frontal view of the chest was obtained Comparison: XY CHEST PORTABLE on DOS: 10/10/24, XY CHEST PORTABLE on DOS: 10/09/24, XY CHEST PORTABLE on DOS: 10/09/24 FINDINGS: Lines and Tubes: Endotracheal tube is in satisfactory position. Enteric tube is not well-visualized a nd appears to terminate over the midline midthorax. Lungs: Opacification of the right hemithorax without significant mediastinal shift No pneumothorax. Cardiomediastinal contours: Lumbar of the Heart size due to Opacification of the right hemithorax Bones: No acute osseous abnormality. IMPRESSION: Endotracheal tube is in satisfactory position. The Enteric tube is not well-visualized and appears to terminate over the midline mid thorax. Recomm end removal and replacement. Unchanged complete opacification of the right hemithorax
[2024-10-10] MEDS: ALBUMIN 25% 100 ML IV ONE (17:45)
[2024-10-10 18:06] LABS: Basophils # (auto) 0.1 10 ^3/uL (0-0.2); Basophils % (auto) 0.4 % (0.0-2.0); Eosinophils # (auto) 0 10 ^3/uL (0-0.8); Hemoglobin 14.5 g/dL (13.5-17.5); Lymphocytes # (auto) 0.7 10 ^3/uL (0.4-5.4); Mean Corpuscular Hemoglobin 28.4 pg (28.0-32.0); Mean Corpuscular Hgb Conc. 31.5 g/dL (32.0-36.0); Mean Corpuscular Volume 90.4 fL (80.0-100.0); Monocytes # (auto) 1.3 10 ^3/uL (0-1.3); Monocytes % (auto) 9.5 % (0.0-12.0); Neutrophils # (auto) 11.9 10 ^3/uL (1.6-8.6); Neutrophils % (auto) 85.1 % (37.0-80.0); Nucleated Red Blood Cells % 0.5 %; Platelet Count (auto) 182 10^3/uL (140-450); Red Blood Cells 5.09 10^6/uL (4.5-5.90)
[2024-10-10 18:16] LABS: Urine Bacteria None Seen /hpf (None Seen)
[2024-10-10 18:19] LABS: INR 1.11 (0.9-1.15); Partial Thromboplastin Time 51.8 SEC (24.5-34.5); Prothrombin Time 11.6 sec (9.3-11.8)
[2024-10-10 18:24] LABS: Alanine Aminotransferase 220 U/L (7-40); Albumin 3.2 g/dL (3.2-4.8); Alkaline Phosphatase 93 U/L (46-116); Amylase 32 U/L (30-118); Anion Gap 11 (5-15); Aspartate Aminotransferase 97 U/L (13-40); BUN/Creatinine Ratio 41.7 (10.0-20.0); Blood Urea Nitrogen 55 mg/dL (9-23); Calcium 8.7 mg/dL (8.7-10.4); Carbon Dioxide 27 mmol/L (20-31); Chloride 111 mmol/L (98-107); Creatine Kinase IFCC 58 U/L (46-171); Glucose 311 mg/dL (74-106); Lipase 26 U/L (12-53); Magnesium 1.9 mg/dL (1.6-2.6); Phosphorus 4.4 mg/dL (2.4-5.1); Potassium 5.1 mmol/L (3.5-5.1); Sodium 149 mmol/L (136-145); Total Protein 5.5 g/dL (5.7-8.2)
[2024-10-10 18:25] LABS: Bilirubin, Total 0.3 mg/dL (0.2-1.0)
[2024-10-10 18:30] LABS: Urine Blood 3+ /uL (Negative); Urine Budding Yeast LOADED /hpf (None Seen); Urine Clarity Turbid (Clear); Urine Color Yellow (Yellow); Urine Mucus FEW (None Seen); Urine Protein, UAD 1+ (Negative); Urine Specific Gravity 1.033 (1.001-1.035); Urine Squamous Epithelial Cell FEW /hpf (<5); Urine Urobilinogen Normal (Negative); Urine WBC 17 /HPF (0-3)
[2024-10-10 18:34] LABS: Base Excess -6.3 mmol/L (-2.0-3.0)
[2024-10-10 18:36] LABS: Bilirubin, Direct 0.1 mg/dL (<0.3)
[2024-10-10] MEDS: AMIODARONE HCL 200 MG TAB PO SCH (21:12)
[2024-10-10 21:58] LABS: Base Excess -8.7 mmol/L (-2.0-3.0)
[2024-10-10] MEDS: INSULIN LANTUS (GLARGINE) 1 /0.01ml (100units/ml) SC SCH (22:12)
[2024-10-11] VITALS (49 sets, daily range): BP systolic 47–131; BP diastolic 30–71; PULSE 55–107; RESP 0–25; TEMP 98.2–99.3; O2SAT 17–92
[2024-10-11] MEDS: VANCOMYCIN 750MG KIT 100 ML IV SCH (02:08)
[2024-10-11 03:56] LABS: Basophils # (auto) 0.1 10 ^3/uL (0-0.2); Basophils % (auto) 0.6 % (0.0-2.0); Eosinophils # (auto) 0 10 ^3/uL (0-0.8); Eosinophils % (auto) 0.1 % (0.0-7.0); Hemoglobin 14.5 g/dL (13.5-17.5); Lymphocytes # (auto) 0.5 10 ^3/uL (0.4-5.4); Lymphocytes % (auto) 4.1 % (10.0-50.0); Mean Corpuscular Hemoglobin 28.2 pg (28.0-32.0); Mean Corpuscular Hgb Conc. 30.1 g/dL (32.0-36.0); Mean Corpuscular Volume 93.4 fL (80.0-100.0); Monocytes # (auto) 1.3 10 ^3/uL (0-1.3); Monocytes % (auto) 10.5 % (0.0-12.0); Neutrophils # (auto) 10.8 10 ^3/uL (1.6-8.6); Neutrophils % (auto) 84.7 % (37.0-80.0); Nucleated Red Blood Cells % 0.7 %; Platelet Count (auto) 181 10^3/uL (140-450); Red Blood Cells 5.14 10^6/uL (4.5-5.90); Red Cell Distribution Width 18.7 % (11.8-14.3); White Blood Cell 12.7 10^3/uL (4.4-10.8)
[2024-10-11 04:07] LABS: Anion Gap 7 (5-15); Carbon Dioxide 30 mmol/L (20-31)
[2024-10-11 04:08] LABS: Chloride 109 mmol/L (98-107); Potassium 5.5 mmol/L (3.5-5.1); Sodium 146 mmol/L (136-145)
[2024-10-11 04:09] LABS: Calcium 8.8 mg/dL (8.7-10.4)
[2024-10-11 04:13] LABS: INR 1.13 (0.9-1.15); Prothrombin Time 11.8 sec (9.3-11.8)
[2024-10-11 04:14] LABS: BUN/Creatinine Ratio 31.3 (10.0-20.0); Blood Urea Nitrogen 61 mg/dL (9-23)
[2024-10-11 04:15] LABS: Glucose 411 mg/dL (74-106)
--- NOTE | 2024-10-11 05:17 | DVH ---
EXAM: XR Chest, 1 View CLINICAL INDICATION: Intubated TECHNIQUE: Frontal view of the chest. COMPARISON: XY CHEST PORTABLE on DOS: 10/10/24, XY CHEST PORTABLE on DOS: 10/10/24, XY CHEST PORTABLE o n DOS: 10/09/24, XY CHEST PORTABLE on DOS: 10/09/24, XY CHEST PORTABLE on DOS: 10/09/24 FINDINGS: LUNGS AND PLEURAL SPACES: Large right pleural effusion. HEART: Cardiomegaly with congestion. MEDIASTINUM: Unremarkable. Normal mediastinal contour. BONES/JOINTS: Unremarkable. No acute fracture. TUBES, LINES AND DEVICES: The endotracheal tube (ETT) is in satisfactory position. Enteric tube ti p cannot be seen but is below the diaphragm. OTHER FINDINGS: . . . IMPRESSION: Large right pleural effusion.
--- NOTE | 2024-10-11 09:17 | DVHPN2 ---
Progress Note - Dictate Date Seen: October 11, 2024 Medical Necessity Reason Pt with a Central, PICC or Fol: Yes The following are medically ne: Central Line, West Catheter Subjective Mr. Cabrera is a 63 years old gentleman he was transferred from the [facility] with a chief complaint of cardiopulmonary arrest. I have seen and examined the patient, I have talked to her nurse, and other medical staff, the patient was intubated, on five pressor drip He coded again on 10/09/24 I have had meeting with his two daughters, the relates the patient was did not have talked to the family, and they have not talked to him for 13 years. These the patient was has a history of diabetes, heart attack 2-3 weeks ago, he was recently found to have COPD and was recently prescribed home oxygen I have updated them about his current situation, and discussed about critical condition She has been off sedation since 10/09/23 1400 Urinalysis, 10/07/2024: Unremarkable UDS, 10/07/2024: Cannabinoids ABG, 10/07/2024: Respiratory acidosis, 10/08/2024: Respiratory acidosis WBC/HB/PLT/MCV, 10/08/2024: 22.7/16.5/291/87.8 PT/INR/PTT, 10/08/2024: 13.9/1.35/139 BUN/CR, 10/08/2024: 49/1.11 TBI/AST/ALT/AP, 10/08/2024: 043/432/402/166 Glucose, 10/07/2024: > 600, > 600, > 600, 10/08/2024: > 600, 482 HGB A1c, 10/08/2024: 13.4 Lactic acid, 10/08/2019 5:7, 5, 4.4, 10/08/2024: 3.6 TG/HDL/LDL/HDL, 10/08/2024: 93/126/45/58 TSH, 10/07/2024: 0.8 Echocardiogram, five: Technically good study. Sinus rhythm. Concentric LVH with aortic root enlargement. RV and right atrial enlargement. Valves. He is structurally normal. Left ventricular function is preserved. EF is approximately 50% with normal RV function. Dopplers unremarkable. No pericardial effusion masses or vegetations. Chest x-ray, 10/07/2024: 1. Endotracheal tube 6.1 cm above the bhanu. 2. Enteric tube is believed to be in place but the distal aspect of this tube is not well seen. If of clinical concern recommend abdominal study CT head, 10/07/2024: 1. Patchy areas of cerebral edema, somewhat atypical in appearance, however favors global hypoxic injury versus diffuse anoxic injury. Follow-up with MRI would be of diagnostic benefit. 2. No acute cervical spine finding 3. Complete opacification of the right buffy thorax, incompletely imaged CTA chest, 10/08/2024: 1. No evidence of pulmonary embolus. 2. Completely non aerated right lung with complete occlusion of the right mainstem bronchus potentially on the basis of mass over mucous plug/aspiration 3. Marked mediastinal and hilar adenopathy. 4. Visualized portions of the upper abdomen demonstrate bilateral adrenal masses concerning for metastatic disease. Consider dedicated CT imaging of the abdomen and pelvis with contrast. 5. Left renal mass from may represent cyst. 6. 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 vital signs Vital Sign Date Time Temp Pulse Resp B/P (MAP) Pulse Ox O2 Delivery O2 Flow Rate FiO2 10/11/24 08:05 100/55 10/11/24 08:00 100 10/11/24 08:00 24 90 Mechanical Ventilator+ 10/11/24 07:55 89 10/11/24 07:15 99.1 210.4 Total Intake and Output 10/10/24 10/10/24 10/11/24 15:00 23:00 07:00 Intake Total 1499.124 ml 1383.998 ml 2037.149 ml Output Total 250 ml 350 ml Balance 1499.124 ml 1133.998 ml 1687.149 ml medications Current Medications Medications Dose Ordered Sig/Chuck Route Start Time Stop Time Status Last Admin Dose Admin Vasopressin 20 units/Sodium Chloride 100 ml @ 9 mls/hr Q11H7M IV 10/07/24 19:00 10/10/24 21:50 9 MLS/HR Epinephrine HCl 250 ml @ 7.5 mls/hr Q24H IV 10/07/24 19:45 10/11/24 05:52 33.75 MLS/HR Pantoprazole Sodium 40 mg BID IV 10/08/24 10:00 10/10/24 21:23 40 MG Aspirin 81 mg DAILY PO 10/08/24 10:00 10/10/24 07:38 81 MG Acetaminophen 650 mg Q6HP PRN PO 10/08/24 01:15 Morphine Sulfate 2 mg Q4HPRN PRN IV 10/08/24 01:15 Vancomycin HCl 0 ml @ 0 mls/hr UD IV 10/08/24 05:45 Levalbuterol HCl 0.625 mg Q6HR NEB 10/08/24 06:00 10/11/24 06:51 0.625 MG Ipratropium Collins 0.5 mg Q6HWA NEB 10/08/24 06:00 10/11/24 06:51 0.5 MG Meropenem 50 ml @ 17 mls/hr Q8HR IV 10/08/24 14:00 10/11/24 05:21 17 MLS/HR Norepinephrine Bitartrate 32 mg/ Sodium Chloride 250 ml @ 0.938 mls/ hr Q24H IV 10/08/24 10:15 10/10/24 21:05 14.063 MLS/HR Phenylephrine HCl 250 ml @ 30 mls/hr Q8H20M IV 10/09/24 02:45 10/11/24 08:05 135 MLS/HR Dopamine HCl/ Dextrose 250 ml @ 24.244 mls/ hr [id number] IV 10/09/24 05:00 10/10/24 22:16 24.244 MLS/HR Heparin Sodium/ Dextrose 250 ml @ 8 mls/hr Q24H IV 10/09/24 17:45 10/10/24 23:17 8 MLS/HR Morphine Sulfate 1 mg Q1HP PRN IV 10/09/24 21:30 Lorazepam 1 mg Q1HP PRN IV 10/09/24 21:30 Diagnostic Test (Pha) 1 strip ACHS 10/10/24 17:00 10/11/24 06:32 1 STRIP Insulin Human Regular HS SC 10/10/24 22:00 10/10/24 22:02 10 UNITS Insulin Human Regular AC SC 10/10/24 17:00 10/11/24 06:34 15 UNITS Dextrose 50 ml UD PRN IV 10/10/24 13:30 Insulin Glargine 20 units BID@0700,2200 SC 10/10/24 22:00 10/11/24 06:34 20 UNITS Amiodarone HCl 200 mg Q12HR PO 10/10/24 22:00 10/10/24 21:12 200 MG Vancomycin HCl 100 ml @ 100 mls/hr Q8H IV 10/11/24 02:00 10/11/24 02:08 100 MLS/HR objective The patient is well-nourished and well-developed with no distress. The patient is intubated MENTAL STATUS: Not responsive to the surroundings, CRANIAL NERVES: Pupils are equal, round, 7-8 mm, non-reactive.There are no corneal reflexes and no doll's eyes phenomenon. No signs of facial weakness. There are no gagging or coughing reflexes SENSATION: No responses to pain stimuli. MOTOR: Normal tone in the upper and lower extremity. Normal muscle bulk. No fasciculations. No spontaneous movement. REFLEXES: Deep tendon reflexes are symmetrical. No pathological reflexes. CEREBELLAR/COORDINATION: Deferred GAIT/STATION: deferred laboratory and microbiology Laboratory Tests 10/11/24 03:33 Test 10/11/24 03:33 Range/Units Serum Glucose 411 #*H 74-106 mg/dL Problem List Deep coma Hypoxic encephalopathy Metabolic encephalopathy Cardiopulmonary arrest/status post CPR Acute respiratory failure Respiratory acidosis Lactic acidosis Nonketotic hyperosmolar syndrome Heart attack Sepsis Assessment/Plan Plan/Recommendation Monitoring Supportive treatment ICU care Follow-up labs EEG Stabilize vitals/pressor drip Respiratory support/vent management Heparin drip IV antibiotics More recommendation per clinical course This medical document was created using an electronic medical record system with [employer] dictation system. Although this document has been carefully reviewed, there may still be some phonetic and typographical errors. These areas are purely typographical due to imperfections of the software programs, and do not reflect any compromise in the patient's medical care Prognosis guarded Dietary Evaluation Review Comments: 1) If patient remains NPO > 7 days, consider EN/TPN to meet at least 75% estimated daily needs 2) If GI is preferred, consider Jevity 1.2 @ 50 mL/hr goal rate as tolerated. Goal rate will provide 1440 kcal, 67g Pro, 968 mL free H2O per 24 hrs. TF regimen will provide ~90% estimated daily energy needs and 52% estimated daily protein needs 3) Advance to regular diet when medically feasible, pending OPTOELECTRONIC TECHNICIAN approval 4) Follow-up [facility] oncology 5) Continue to monitor I&O, labs, and skin integrity Expected Outcomes/Goals: 1) patient to receive nutrition support within 7 days of NPO status 2) labs to improve 3) diet to advance 4) f/u in 2-3 days Plan discussed with: Daughter, Other Critical Care Time(min): 40 DILLON GOODMAN MD October 11, 2024 09:17
--- NOTE | 2024-10-11 09:36 | ECG ---
[facility] Test Date: 2024-10-10 Test Time: 16:53:30 Pat Name: ALEXX RAMIREZ Department: icu Room: [address] [place] [address] Gender: M [employer] Officer: lalit : 1960 Requested By: LILLY CHIU Order Number: [id number] Reading MD: Measurements Intervals [place] Rate: 80 P: 64 AR: 164 QRS: -50 QRSD: 117 T: 68 QT: 377 QTc: 435 Interpretive Statements Sinus rhythm Atrial premature complex Left anterior fascicular block Low voltage, precordial leads Nonspecific T abnrm, anterolateral leads Please click the below link to view image of tracing.
[2024-10-11] MEDS ORDERED: MORPHINE SULFATE INJ 2 MG/ml SYRG IV PRN (10:30)
--- NOTE | 2024-10-11 11:21 | DVHDS2 ---
Discharge Summary Date of Admission October 08, 2024 at 01:04 Date of Discharge: October 11, 2024 Labs/Diagnostic Data: Laboratory Results Test 10/11/24 06:25 10/11/24 03:33 10/10/24 21:50 10/10/24 17:46 POC Glucose 381 mg/dl (70-106) White Blood Count 12.7 10^3/uL (4.4-10.8) Red Blood Count 5.14 10^6/uL (4.5-5.90) Hemoglobin 14.5 g/dL (13.5-17.5) Hematocrit 48.0 % (41.0-53.0) Mean Corpuscular Volume 93.4 fL (80.0-100.0) Mean Corpuscular Hemoglobin 28.2 pg (28.0-32.0) Mean Corpuscular Hemoglobin Concent 30.1 g/dL (32.0-36.0) Red Cell Distribution Width 18.7 % (11.8-14.3) Platelet Count 181 10^3/uL (140-450) Mean Platelet Volume 8.1 fL (6.9-10.8) Neutrophils (%) (Auto) 84.7 % (37.0-80.0) Lymphocytes (%) (Auto) 4.1 % (10.0-50.0) Monocytes (%) (Auto) 10.5 % (0.0-12.0) Eosinophils (%) (Auto) 0.1 % (0.0-7.0) Basophils (%) (Auto) 0.6 % (0.0-2.0) Neutrophils # (Auto) 10.8 10 ^3/uL (1.6-8.6) Lymphocytes # (Auto) 0.5 10 ^3/uL (0.4-5.4) Monocytes # (Auto) 1.3 10 ^3/uL (0-1.3) Eosinophils # (Auto) 0 10 ^3/uL (0-0.8) Basophils # (Auto) 0.1 10 ^3/uL (0-0.2) Nucleated Red Blood Cells 0.7 % Prothrombin Time 11.8 sec (9.3-11.8) Prothrombin Time INR 1.13 (0.9-1.15) Activated Partial Thromboplast Time 69.0 SEC (24.5-34.5) Sodium Level 146 mmol/L (136-145) Potassium Level 5.5 mmol/L (3.5-5.1) Chloride Level 109 mmol/L (98-107) Carbon Dioxide Level 30 mmol/L (20-31) Anion Gap 7 (5-15) Blood Urea Nitrogen 61 mg/dL (9-23) Creatinine 1.95 mg/dL (0.700-1.30) Glomerular Filtration Rate Calc 38 mL/min (>90) BUN/Creatinine Ratio 31.3 (10.0-20.0) Serum Glucose 411 mg/dL (74-106) Calcium Level 8.8 mg/dL (8.7-10.4) Blood Gas Specimen Type Arterial Blood Gas Sample Site Right fermoral Blood Gas Patient Temperature 37.0 Arterial Blood Date Drawn Arterial Blood pH 7.027 (7.350-7.450) Arterial Blood Partial Pressure CO2 96.3 mmHg (35.0-48.0) Arterial Blood Partial Pressure O2 56.6 mmHg (83.0-108.0) Arterial Blood HCO3 24.7 mmol/L (21.0-28.0) Arterial Blood Oxygen Saturation 77.1 % (94.0-98.0) Arterial Blood Base Excess -8.7 mmol/L (-2.0-3.0) Arterial Blood Oxyhemoglobin 76.3 % (94.0-98.0) Arterial Blood Carboxyhemoglobin 0.7 % (0.5-1.5) Arterial Blood Methemoglobin 0.3 % (0.0-1.5) Kp Test N/a Blood Gas Total Hemoglobin 15.00 g/dL (13.5-17.5) Blood Gas Set Respiration Rate 24.0 Blood Gas Modality Vent - p/c FiO2 % 100.0 Blood Gas Inspiratory Pressure 26.0 Blood Gas PEEP or CPAP 10.0 Blood Gas Critical Value Read Back Yes Blood Gas Notified Whom carmelita Salgado md Blood Gas Notified Time [id number] Blood Gas Notified By Avelar. jacobsen corporate quality assurance manager Urine Color Yellow (Yellow) Urine Clarity Turbid (Clear) Urine pH 6.0 (5.0-9.0) Urine Specific [place] 1.033 (1.001-1.035) Urine Protein 1+ (Negative) Urine Ketones 1+ (Negative) Urine Blood 3+ /uL (Negative) Urine Nitrite Negative (Negative) Urine Bilirubin Negative (Negative) Urine Urobilinogen Normal mg/dL (Negative) Urine Leukocyte Esterase Negative /uL (Negative) Urine RBC 240 /hpf (0 - 3) Urine Microscopic WBC 17 /HPF (0-3) Urine Squamous Epithelial Cells Few /hpf (<5) Urine Bacteria None seen /hpf (None Seen) Urine Mucus Few (None Seen) Urine Yeast (Budding) Loaded /hpf (None Seen) Urine Glucose 1+ mg/dL (Normal) Test 10/10/24 17:45 10/10/24 17:00 10/10/24 13:03 10/10/24 11:42 Phosphorus Level 4.4 mg/dL (2.4-5.1) Magnesium Level 1.9 mg/dL (1.6-2.6) Total Bilirubin 0.3 mg/dL (0.2-1.0) Direct Bilirubin 0.1 mg/dL (<0.3) Aspartate Amino Transferase (AST) 97 U/L (13-40) Alanine Aminotransferase (ALT) 220 U/L (7-40) Alkaline Phosphatase 93 U/L (46-116) Creatine Kinase 58 U/L (46-171) Troponin I High Sensitivity 371 ng/L (</=54) Total Protein 5.5 g/dL (5.7-8.2) Albumin 3.2 g/dL (3.2-4.8) Amylase Level 32 U/L (30-118) Lipase 26 U/L (12-53) Vancomycin Level Trough 17.7 ug/mL (5-10) Blood Gas Comments Differential Total Cells Counted 100.0 (100) Neutrophils % (Manual) 74 (37.0-80.0) Band Neutrophils % (Manual) 12 Lymphocytes % (Manual) 5 (10.0-50.0) Monocytes % (Manual) 9 (0-12) Eosinophils % (Manual) 0 (0-7) Basophils % (Manual) 0 (0.0-2.0) Metamyelocytes % (manual) 0 Myelocytes % (Manual) 0 Promyelocytes % (Manual) 0 Blast Cells % (Manual) 0 Reactive Lymphocytes 0 Platelet Estimate Adequate Anisocytosis (manual) Slight Test 10/09/24 10:10 10/09/24 02:06 10/08/24 10:19 10/08/24 06:25 Lactic Acid Level 1.4 mmol/L (0.4-2.0) Blood Gas Spontaneous Rate 24 Blood Gas Spontaneous Tidal Volume 694 Blood Gas Pressure Support 26 Triglycerides Level 93 mg/dL (< 150) Cholesterol Level 126 mg/dL (< 200) LDL Cholesterol 45 mg/dL (< 100) HDL Cholesterol 58 mg/dL (40-59) Serum Osmolality 340 mOsm/kg (278-298) Test 10/08/24 03:33 10/07/24 23:20 10/07/24 19:30 10/07/24 19:11 Hemoglobin A1c 13.4 % A1C (<5.7) Thyroid Stimulating Hormone (TSH) 0.80 uIU/mL (0.55-4.78) Urine Opiates Screen Neg (NEGATIVE) Urine Fentanyl Screen Neg (NEGATIVE) Urine Barbiturates Screen Neg (NEGATIVE) Urine Phencyclidine Screen Neg (NEGATIVE) Urine Amphetamines Screen Neg (NEGATIVE) Urine Benzodiazepines Screen Neg (NEGATIVE) Urine Cocaine Screen Neg (NEGATIVE) Urine Cannabinoids Screen Pos (NEGATIVE) B-Type Natriuretic Peptide 454.29 pg/mL (0-100) Other Laboratory Tests 10/11/24 03:33 Brief Hx & Hospital Course: Discharge diagnoses: Cardiopulmonary arrest status post ROSC Acute on chronic hypoxic and hypercapnic respiratory failure Acute respiratory acidosis Lactic acidosis Right lung pneumonia with possible mucus plugging status post bronchoscopy Possible right lung cancer Possible bilateral adrenal malignancy Severe sepsis with septic shock most likely due to pneumonia Acute liver shock KATHERINE Hyperosmolar hypovolemic hypernatremia Uncontrolled type 2 diabetes Hyperosmolar nonketotic hyperglycemia Morbid obesity Atrial fibrillation with RVR Anoxic encephalopathy Possible metabolic encephalopathy Acute ID, NSTEMI, possible underlying heart disease The patient was a 63-year-old male who was admitted for cardiac arrest and NSTEMI with elevated troponin He required mechanical ventilation Chest x-ray and CTA angiography showed possible pneumonia on the right side with a possible mucus plugging and therefore a bronchoscopy was also done which showed probable malignancy there due to lymphadenopathy but a biopsy was not possible due to the patient's unstable condition He was treated with IV antibiotics and vasopressors The patient remained critical in the ICU He developed dilated pupils, he was not responsive to stimuli He remained on high doses of vasopressors This morning he was off sedation, no responses, dilated pupils, no response to light The family were contacted over the weekend and they wanted to come today to do a terminal weaning I met the family at the bedside today and they understand the poor prognosis and they requested terminal weaning, the patient is already full DNR Terminal weaning was done and the patient peacefully this morning. Time of was 10:57 a.m. Condition at Discharge: Poor Final Diagnosis/Problems List Cardiac arrest Acute respiratory failure Discharge Disposition: at Hospital SNF Discharge Will this Physician continue t: No Discharge Statement: "Patient was advised to return to the ER or call 911 if any headaches, dizziness, shortness of breath, chest pain, abdominal pain, bleeding, fevers, or worsening of medical condition. Patient was counseled about treatment plan, medications, possible side effects, patientverbalized understanding. All questions were answered to the best of my ability. This discharge took greater then 30 minutes in planning, reviewing documentation, counseling the patient, and discussing with other team members." ASSESSMENT ASSESSMENT Assessment Date of Service: October 11, 2024 Billing Provider: CIARA MELCHOR MD Common Visit Codes: NOT BILLABLE CIARA MELCHOR MD October 11, 2024 11:21
--- NOTE | 2024-10-11 22:18 | DVHPN2 ---
Progress Note - Dictate Date Seen: October 11, 2024 Medical Necessity Reason Pt with a Central, PICC or Fol: Yes The following are medically ne: Central Line, Pedroza Catheter Reason for pedroza catheter: Strict I&O Subjective Patient seen and examined at bedside. Intubated on mechanical ventilator. Overnight events reviewed. vital signs Vital Sign Date Time Temp Pulse Resp B/P (MAP) Pulse Ox O2 Delivery O2 Flow Rate FiO2 10/11/24 10:45 98.8 55 0 47/30 (36) 17 209.8 10/11/24 10:00 Mechanical Ventilator+ 100 100 Total Intake and Output 10/10/24 10/10/24 10/11/24 15:00 23:00 07:00 Intake Total 1499.124 ml 1383.998 ml 2261.206 ml Output Total 250 ml 350 ml Balance 1499.124 ml 1133.998 ml 1911.206 ml objective Gen.: Patient lying in bed in medical ICU. Intubated on mechanical ventilator. Head: Normocephalic, atraumatic. Eyes: PERRLA. Ears: Normal external anatomy. Throat: Endotracheal tube and orogastric tube in place. Neck: Supple, trachea midline. Chest: Transmitted breath sounds bilaterally. Decreased air entry bilaterally. No wheezing. Bibasilar crackles. Cardiovascular: Positive S1, positive S2. Regular rate and rhythm. Abdomen: Positive bowel sounds in all 4 quadrants. Soft, nontender, nondistended. : Pedroza in place. Normal external genitalia. Rectal: Deferred. Skin: Warm, dry. Intact. Extremities: 2+ radial pulses bilaterally. No lower extremity edema. Neuro: Off sedation laboratory and microbiology Laboratory Tests 10/11/24 03:33 Test 10/11/24 03:33 Range/Units Serum Glucose 411 #*H 74-106 mg/dL Assessment/Plan Impression: Acute hypoxemic respiratory failure On mechanical ventilator Poorly controlled diabetes /HONK S/p cardiac arrest ? Lung cancer Acute kidney injury Events: S/p cardiac arrest 10/09/24 On mechanical ventilation On PC mode Followed by [facility] notable for severe acidemia, increased PaCO2. Poor ventilation Remains off sedation Patient remains hemodynamically unstable On multiple pressors for hemodynamic support On Levophed drip, Panchito-Synephrine drip, epinephrine drip, vasopressin drip, and dopamine drip. Titrate to keep MAP above 65 mmHg On Amiodarone drip. Continue abx Monitor renal function Monitor electrolytes Supplement as needed Overall poor prognosis High likelihood of demise Possible plan for compassionate extubation. Labs and imaging reviewed Plan: Vent support Titrate to maintain sats 90% or above Off sedation Continue antibiotics F/u cultures Bronchodilators Monitor renal function Monitor electrolytes Supplement as needed Pressors as needed for hemodynamic support To maintain a mean arterial pressure of 65 mmHg Glycemic control F/u cardiology DVT prophylaxis Prognosis: Poor given patient's multiple co-morbidities. Condition: Critical Rest of plan per hospitalist and other consultants. A total of 35 minutes of critical care time was spent reviewing the patient record, examining the patient, making a diagnostic and therapeutic plan, discussing this plan with the medical personnel, following up on diagnostic studies and following the patient for clinical stability excluding any and all procedures. At least 50% of this time was spent in direct, keep-mb-upwv contact. Thank you, Dr. Jaramillo, for allowing me to participate in this patient's care. Further recommendations will depend on the patient's clinical course. Please do not hesitate to contact me if you have any questions or concerns. This medical document was created using an electronic medical record system with [employer] computerized dictation system. Although these documentations are being carefully reviewed, there may still be some phonetic and typographical changes. The errors are purely typographical, due to imperfection on the software program, and do not reflect any compromise in the patient's medical care. Dietary Evaluation Review Comments: 1) If patient remains NPO > 7 days, consider EN/TPN to meet at least 75% estimated daily needs 2) If GI is preferred, consider Jevity 1.2 @ 50 mL/hr goal rate as tolerated. Goal rate will provide 1440 kcal, 67g Pro, 968 mL free H2O per 24 hrs. TF regimen will provide ~90% estimated daily energy needs and 52% estimated daily protein needs 3) Advance to regular diet when medically feasible, pending POR[employer] approval 4) Follow-up [facility] oncology 5) Continue to monitor I&O, labs, and skin integrity Expected Outcomes/Goals: 1) patient to receive nutrition support within 7 days of NPO status 2) labs to improve 3) diet to advance 4) f/u in 2-3 days Plan discussed with: Other (PAWAN Jimenes) Critical Care Time(min): 35 GEE,AIRAM M MD October 11, 2024 22:18
--- NOTE | 2024-10-13 00:53 | DVHEEG2 ---
Neurology EEG Procedural Note Procedural Note EXAM DATE: 10/09/2024 REFERRING DOCTOR: Dr. Goodman TECHNIQUE: Eighteen channels of EEG, 2 channels of EOG, and 1 channel of EKG were recorded using the [employer] 10/20 system. CLINICAL DATA: The patient was referred for an EEG evaluation for the evidence of seizure disorder. MEDICATIONS: See the chart BACKGROUND ACTIVITY: The EEG showed diffuse low-amplitude mixed delta and theta activity over both hemispheres, that was not reactive to external stimuli ACTIVATION: Hyperventilation: Not done Photic Stimulation: Not done Sleep: Unresponsiveness IMPRESSION: This is a remarkably abnormal EEG, this EEG seen in severe cerebral dysfunction due to metabolic/hypoxic encephalopathy or medication effects, unless this is caused by reversible etiology, this EEG is suggestive of a poor prognosis for meaningful recovery, please correlate clinically The EKG channel showed an irregular heart rate of 78/[place] [address] DILLON GOODMAN MD October 13, 2024 00:53
== END 2024-10-11 17:18 | DRG 871 ==
LOC: EDBD 18:37 → ER 18:45 → EDBD 10-08 01:04 → OVERFLOW 10-08 01:04 → ICU WEST 10-08 02:41
PROVIDERS: ADMIT Internal Medicine Geriatric Medicine; ATTEND Internal Medicine
PROC: 06HY33Z Insertion of Infusion Device into Lower Vein, Percutaneous Approach (ICD-10-PCS; principal; 2024-10-07)
PROC: 0BH17EZ Insertion of Endotracheal Airway into Trachea, Via Natural or Artificial Opening (ICD-10-PCS; 2024-10-07)
PROC: 04HY32Z Insertion of Monitoring Device into Lower Artery, Percutaneous Approach (ICD-10-PCS; 2024-10-07)
PROC: 5A1945Z Respiratory Ventilation, 24-96 Consecutive Hours (ICD-10-PCS; 2024-10-07)
PROC: 0B938ZZ Drainage of Right Main Bronchus, Via Natural or Artificial Opening Endoscopic (ICD-10-PCS; 2024-10-08)
PROC: 0W9B30Z Drainage of Left Pleural Cavity with Drainage Device, Percutaneous Approach (ICD-10-PCS; 2024-10-09)
PROC: 5A12012 Performance of Cardiac Output, Single, Manual (ICD-10-PCS; 2024-10-09)
PROC: 06HY33Z Insertion of Infusion Device into Lower Vein, Percutaneous Approach (ICD-10-PCS; 2024-10-11)
PROC: B54BZZA Ultrasonography of Right Lower Extremity Veins, Guidance (ICD-10-PCS; 2024-10-11)
DX: A41.9 Sepsis, unspecified organism (principal); E11.00 Type 2 diabetes mellitus with hyperosmolarity without nonketotic hyperglycemic-hyperosmolar coma (NKHHC); G93.41 Metabolic encephalopathy; J69.0 Pneumonitis due to inhalation of food and vomit; R65.21 Severe sepsis with septic shock; I21.4 Non-ST elevation (NSTEMI) myocardial infarction; N17.0 Acute kidney failure with tubular necrosis; J96.22 Acute and chronic respiratory failure with hypercapnia; K72.00 Acute and subacute hepatic failure without coma; J96.21 Acute and chronic respiratory failure with hypoxia; G93.1 Anoxic brain damage, not elsewhere classified; E87.0 Hyperosmolality and hypernatremia; E87.29 Other acidosis; J90 Pleural effusion, not elsewhere classified; J93.9 Pneumothorax, unspecified; C74.92 Malignant neoplasm of unspecified part of left adrenal gland; C74.91 Malignant neoplasm of unspecified part of right adrenal gland; J44.0 Chronic obstructive pulmonary disease with (acute) lower respiratory infection; C34.91 Malignant neoplasm of unspecified part of right bronchus or lung; I46.9 Cardiac arrest, cause unspecified; Z66 Do not resuscitate; E87.5 Hyperkalemia; I48.91 Unspecified atrial fibrillation; R74.01 Elevation of levels of liver transaminase levels; F12.10 Cannabis abuse, uncomplicated; E66.01 Morbid (severe) obesity due to excess calories; H57.04 Mydriasis; E11.65 Type 2 diabetes mellitus with hyperglycemia; E86.1 Hypovolemia; Z68.36 Body mass index [BMI] 36.0-36.9, adult; Z51.5 Encounter for palliative care; I25.2 Old myocardial infarction
CPT/HCPCS: 32551; 36415; 36556; 36600; 36620; 70450; 71045; 71275; 72125; 76604; 76700; 80048; 80053; 80061; 80076; 80202; 80307; 81001; 82150; 82550; 82805; 82962; 83036; 83605; 83690; 83735; 83880; 83930; 84100; 84443; 84484; 85007; 85025; 85027; 85610; 85730; 86850; 86900; 86901; 87040; 87070; 87077; 87081; 87086; 87186; 87205; 92950; 93005; 93306; 94002; 94003; 94640; 95819; 96361; 96374; 99291; G0378; J0171; J1100; J1815; J2185; J2470; P9047